=== PATIENT | male | born 1965 | race Caucasian/White ===

== ENCOUNTER 2016-10-04 20:21 | Emergency (ER) | payer OTHER ==
[~2016-10-04] VITALS: Ht 162.6 cm; Wt 77.3 kg
[~2016-10-04 20:21] MED LIST: BUPR150CR PO; CYMB30CA PO; GABA300C5 PO; MOBI15TA PO; TRAZ150T75 PO; VIAG25TA PO
[2016-10-04 20:22] VITALS: BP 166/106; PULSE 110; RESP 16; TEMP 98.1; O2SAT 98
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
[2016-10-04] MEDS ORDERED: TRAZ1TAB45 PO (21:03)
[2016-10-04] MEDS ORDERED: ONDANSETRON ODT 4 MG TAB PO ONE (21:15)
[2016-10-04] MEDS ORDERED: MORPHINE SULFATE 4 MG/ML INJ IM ONE (21:15)
[2016-10-04] MEDS ORDERED: SILVER SULFADIAZINE 1% CR 50 GM JAR TOPICAL ONE (21:15)
[2016-10-04] MEDS ORDERED: SILV1CRE20 TOPICAL (21:18)
[2016-10-04] MEDS ORDERED: NORC5TAB PO (21:18)
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
[2016-10-04 22:42] VITALS: RESP 16
[2016-10-04] MEDS ORDERED: ACETAMINOPHEN/HYDROcodone 325 MG/5 MG TAB PO ONE (22:45)
== END 2016-10-04 22:43 | disposition home or self-care (01) ==
LOC: NEPE 20:21
DX: T21.21XA Burn of second degree of chest wall, initial encounter (principal); T20.10XA Burn of first degree of head, face, and neck, unspecified site, initial encounter; X12.XXXA Contact with other hot fluids, initial encounter
CPT/HCPCS: 16000; 96372; 99284; J2270

== ENCOUNTER 2016-10-05 14:41 | Emergency (ER) | payer OTHER ==
[~2016-10-05] VITALS: Ht 162.6 cm; Wt 80.0 kg
[~2016-10-05 14:41] MED LIST changes: +NORC5TAB PO; +SILV1CRE20 TOPICAL; -TRAZ150T75 PO; +TRAZ1TAB45 PO
[2016-10-05 14:42] VITALS: BP 144/94; PULSE 104; RESP 15; TEMP 98.1; O2SAT 99
[2016-10-05] MEDS ORDERED: SILVER SULFADIAZINE 1% CR 50 GM JAR TOPICAL ONE (19:00)
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
== END 2016-10-05 19:45 | disposition home or self-care (01) ==
LOC: NEPD 14:41
DX: Z48.01 Encounter for change or removal of surgical wound dressing (principal); T22.29 Burn of second degree of multiple sites of shoulder and upper limb, except wrist and hand; T21.21XD Burn of second degree of chest wall, subsequent encounter
CPT/HCPCS: 16000

== ENCOUNTER 2018-01-25 21:19 | Inpatient (IN) ==
[2018-01-25] MEDS ORDERED: Morphine Sulfate Inj 8 MG/ML Vial IV.PUSH ONE ×2 (21:27→23:13)
[2018-01-25] MEDS ORDERED: Acetaminophen 500 MG Tablet PO ONE (21:36)
--- NOTE | 2018-01-25 21:36 | ED ---
HPI General Chief Complaint: Back Pain/Injury Stated Complaint: Back Pain/Poss Sepsis Time Seen by Provider: 01/25/18 21:27 Source: patient Mode of arrival: EMS Limitations: no limitations History of Present Illness HPI Narrative: Recent laminectomy lumbar complaining of back pain. Fever MD Complaint: Reports back pain Onset (ago): day(s) Duration: Reports constant Similar Symptoms Previously: No Location: Reports lumbar spine Severity: severe Quality: Reports dull Radiation: Reports none Relieving factors: immobilization Exacerbating factors: movement Associated symptoms: Reports fever; Denies a change in bowel habits, abdominal pain and parasthesias Related Data Home Medications Medication Instructions Recorded Confirmed baclofen 10 mg PO TID PRN 01/06/18 01/25/18 duloxetine [Cymbalta] 60 mg PO BID 01/06/18 01/25/18 gabapentin 300 mg PO TID 01/06/18 01/25/18 meloxicam 15 mg PO DAILY 01/06/18 01/25/18 trazodone 100 mg PO DAILY 01/06/18 01/25/18 bupropion HCl 300 mg PO QAM 01/25/18 01/25/18 Previous Rx's Medication Instructions Recorded hydrocodone-acetaminophen [[place]] 1 tab PO Q4H PRN #60 tab 01/17/18 Allergies Allergy/AdvReac Type Severity Reaction Status Date / Time No Known Allergies Allergy Verified 01/25/18 21:27 Review of Systems ROS: all other systems reviewed are negative Respiratory Denies cough Genitourinary Denies difficulty urinating Musculoskeletal Reports back pain PMFSH Medical History Medical History Anxiety (Acute) Arthritis (Acute) Back pain (Acute) Bone spur (Acute) Depression (Acute) Herniated disc (Acute) History of diverticulitis of colon (Acute) Joint pain (Acute) Neck pain (Acute) PTSD (post-traumatic stress disorder) (Acute) Spinal stenosis (Acute) Wears glasses (Acute) Social History Social History Substance History: No History of Abuse Second Hand Smoke Exposure: No Smoking Status: Former smoker Tobacco Type: Cigarettes How Often Do You Have a Drink Containing Alcohol: Never Recent Travel in [place] within the Last 8 Weeks: No Recent Out of Country Travel within the Last 8 Weeks: No Exam Narrative Exam Narrative: NONTOXIC Looks uncomfortable recumbent position left PERRL, EOMI NO JVD NON LABORED RESPIRATIONS Tachycardia/fever SOFT NON TENDER, no CVA tenderness PELVIS STABLE FROM EXTREMITIES Lumbar midline incision well-healing no surrounding erythema with Steri-Strips NO LOWER EXTREMITY EDEMA FACIAL SYMMETRY CLEAR SENTENCES Course Reevaluation(s) Reevaluation #1: deepika ramos neurosurgery paged, 2139 d/w cat ramos colleague, will consult no incontinence moves extremities 0100 d/w mayra ramos to admit / assume care hd stable with no signs of cord compression or acute surgical abdomen Updated at bedside Time: 21:33 Initial Documented Vital Signs Temperature 101.9 F H 01/25/18 21:28 Pulse Rate 101 H 01/25/18 21:28 Respiratory Rate 18 01/25/18 21:28 Blood Pressure 138/82 01/25/18 21:28 Pulse Oximetry 97 01/25/18 21:28 Last Documented Vital Signs Temperature 99.9 F H 01/25/18 23:34 Pulse Rate 88 01/25/18 23:34 Respiratory Rate 18 01/25/18 23:34 Blood Pressure 117/67 01/25/18 23:34 Pulse Oximetry 98 01/25/18 23:34 Medical Decision Making MDM Narrative Medical Screen Exam Complete: Yes Emergency Medical Condition: Yes Lab Data Lab results reviewed: Yes I reviewed the patient's lab results. Result diagrams: 01/25/18 21:38 01/25/18 21:38 Lab Results 01/25/18 01/25/18 01/25/18 Range/Units 21:38 21:38 21:38 WBC 7.6 (4.0-11.0) th/mm3 RBC 4.06 L (4.50-5.90) mil/mm3 Hgb 13.6 (13.0-17.0) gm/dL Hct 39.3 (39.0-51.0) % MCV 96.9 (80.0-100.0) fL MCH 33.6 (27.0-34.0) pg MCHC 34.7 (32.0-36.0) % RDW 13.1 (11.6-17.2) % Plt Count 274 (150-450) th/mm3 MPV 7.2 (7.0-11.0) fL Neut % (Auto) 77.6 H (16.0-70.0) % Lymph % (Auto) 11.9 (9.0-44.0) % [place] % (Auto) 9.3 H (0.0-8.0) % Eos % (Auto) 0.8 (0.0-4.0) % Baso % (Auto) 0.4 (0.0-2.0) % Neut # (Auto) 5.9 (1.8-7.7) th/mm3 Lymph # (Auto) 0.9 L (1.0-4.8) th/mm3 [place] # (Auto) 0.7 (0.0-0.9) th/mm3 Eos # (Auto) 0.1 (0.0-0.4) th/mm3 Baso # (Auto) 0.0 (0.0-0.2) th/mm3 WBC Differential . Differential Comment Auto diff final Sodium 138 (136-145) meq/L Potassium 4.3 (3.5-5.1) meq/L Chloride 105 (98-107) meq/L Carbon Dioxide 27.0 (21.0-32.0) meq/L Anion Gap 6 (5-15) meq/L BUN 20 H (7-18) mg/dL Creatinine 1.01 (0.60-1.30) mg/dL Estimated GFR 78 L (>89) mL/min Random Glucose 114 H (74-106) mg/dL Lactic Acid 1.1 (0.4-2.0) mmol/L Calcium 7.7 L (8.5-10.1) mg/dL Magnesium 2.0 (1.5-2.5) mg/dL Total Bilirubin 0.3 (0.2-1.0) mg/dL AST 62 H (15-37) U/L ALT 64 (12-78) U/L Alkaline Phosphatase 98 (45-117) U/L Total Protein 6.9 (6.4-8.2) g/dL Albumin 3.3 L (3.4-5.0) g/dL Urine Color (Yellw/Straw) Urine Clarity (Clear) Urine pH (5.0-8.5) Ur Specific [place] (1.002-1.035) Urine Protein (Neg-Trace) mg/dL Urine Glucose (UA) (Negative) mg/dL Urine Ketones (Negative) mg/dL Urine Occult Blood (Negative) Urine Nitrate (Negative) Urine Bilirubin (Negative) Urine Urobilinogen (Less than 2) mg/dL Ur Leukocyte Esterase (Negative) Urine WBC (0-5) /hpf Urine Mucus (Occasional) /lpf Micro UA Comment Ur Microscopic Review Urine Culture Comments 01/25/18 Range/Units 22:06 WBC (4.0-11.0) th/mm3 RBC (4.50-5.90) mil/mm3 Hgb (13.0-17.0) gm/dL Hct (39.0-51.0) % MCV (80.0-100.0) fL MCH (27.0-34.0) pg MCHC (32.0-36.0) % RDW (11.6-17.2) % Plt Count (150-450) th/mm3 MPV (7.0-11.0) fL Neut % (Auto) (16.0-70.0) % Lymph % (Auto) (9.0-44.0) % [place] % (Auto) (0.0-8.0) % Eos % (Auto) (0.0-4.0) % Baso % (Auto) (0.0-2.0) % Neut # (Auto) (1.8-7.7) th/mm3 Lymph # (Auto) (1.0-4.8) th/mm3 [place] # (Auto) (0.0-0.9) th/mm3 Eos # (Auto) (0.0-0.4) th/mm3 Baso # (Auto) (0.0-0.2) th/mm3 WBC Differential Differential Comment Sodium (136-145) meq/L Potassium (3.5-5.1) meq/L Chloride (98-107) meq/L Carbon Dioxide (21.0-32.0) meq/L Anion Gap (5-15) meq/L BUN (7-18) mg/dL Creatinine (0.60-1.30) mg/dL Estimated GFR (>89) mL/min Random Glucose (74-106) mg/dL Lactic Acid (0.4-2.0) mmol/L Calcium (8.5-10.1) mg/dL Magnesium (1.5-2.5) mg/dL Total Bilirubin (0.2-1.0) mg/dL AST (15-37) U/L ALT (12-78) U/L Alkaline Phosphatase (45-117) U/L Total Protein (6.4-8.2) g/dL Albumin (3.4-5.0) g/dL Urine Color Yellow (Yellw/Straw) Urine Clarity Clear (Clear) Urine pH 7.0 (5.0-8.5) Ur Specific [place] 1.018 (1.002-1.035) Urine Protein Negative (Neg-Trace) mg/dL Urine Glucose (UA) Negative (Negative) mg/dL Urine Ketones Negative (Negative) mg/dL Urine Occult Blood Negative (Negative) Urine Nitrate Negative (Negative) Urine Bilirubin Negative (Negative) Urine Urobilinogen 0.2 (Less than 2) mg/dL Ur Leukocyte Esterase Negative (Negative) Urine WBC Less than 1 (0-5) /hpf Urine Mucus Few H (Occasional) /lpf Micro UA Comment Culture not ind Ur Microscopic Review Not Reportable Urine Culture Comments Culture not ind Imaging Data Radiologist's impression: Chest X-Ray 01/25/18 21:28 CONCLUSION: No acute cardiopulmonary disease. Lumbar Spine CT 01/25/18 21:31 CONCLUSION: 1. Status post left laminectomy at the L3-L4 level. There is a small focus of air in the laminectomy site. Focal fluid collection is not clearly seen. 2. Moderate narrowing of the sac the L4-L5 level secondary to diffuse disc bulge and facet and ligamentum flavum hypertrophy. 3. Transitional changes with sacralization of L5. Thoracic Spine CT 01/25/18 21:31 CONCLUSION: Negative thoracic spine CT examination. ECG Data Attestation: I personally reviewed and interpreted this ECG as follows: (Sinus, no STEMI) Discharge Plan Discharge Disposition Patient Disposition: ED Admit(ED Internal Use Only) Discharge Condition Condition: Stable Discharge Details Diagnosis: Acute exacerbation of chronic low back pain, Fever Physicians Team ED Provider: Gordo Medina Primary Care Provider: Brina Clarke Rxs /Orders / Referrals /Forms Prescriptions: No Action meloxicam 15 mg Tablet 15 mg PO DAILY RF: 0 trazodone 100 mg Tablet 100 mg PO DAILY RF: 0 baclofen 10 mg Tablet 10 mg PO TID PRN (Reason: Muscle Spasm) RF: 0 gabapentin 300 mg Capsule 300 mg PO TID RF: 0 duloxetine [Cymbalta] 60 mg Capsule,Delayed Release(Dr/Ec) 60 mg PO BID RF: 0 hydrocodone-acetaminophen [[place]] 10-325 mg Tablet 1 tab PO Q4H PRN (Reason: Pain) Qty: 60 RF: 0 bupropion HCl 300 mg Tablet Extended Release 24 Hr 300 mg PO QAM RF: 0 Discharge Interventions Interventions: Vital Signs Last Done: 01/25/18 23:34 Status ED Status: With Doctor
--- NOTE | 2018-01-25 21:53 | XR ---
EXAM DATE: 01/25/2018 9:48 PM EST AGE/SEX: 52 years / Male INDICATIONS: Fever today, one week after back surgery. Lower back pain today. CLINICAL DATA: This is the patient's initial encounter. Patient reports that signs and symptoms have been present for 1 day and indicates a pain score of 10/10. MEDICAL/SURGICAL HISTORY: None. . Lumbar laminectomy. COMPARISON: [facility] [place], CHEST 2V PA&LAT, 01/06/2018. . FINDINGS: The lungs are clear without infiltrate, nodule, or mass. There is no appreciable pleural effusion fo r technique. Heart and mediastinum are unremarkable. CONCLUSION: No acute cardiopulmonary disease. Electronically signed by: Belle Hui MD Board Certified Radiologist 01/25/2018 9:52 PM EST
[2018-01-25 22:00] LABS: Baso % (Auto) 0.4 % (0.0-2.0); Eos # (Auto) 0.1 th/mm3 (0.0-0.4); Eos % (Auto) 0.8 % (0.0-4.0); Hematocrit 39.3 % (39.0-51.0); Hemoglobin 13.6 gm/dL (13.0-17.0); Lymph # (Auto) 0.9 th/mm3 (1.0-4.8); Lymph % (Auto) 11.9 % (9.0-44.0); Mean Corpuscular HGB Conc 34.7 % (32.0-36.0); Mean Corpuscular Hemoglobin 33.6 pg (27.0-34.0); Mean Corpuscular Volume 96.9 fL (80.0-100.0); Mean Platelet Volume 7.2 fL (7.0-11.0); Mono # (Auto) 0.7 th/mm3 (0.0-0.9); Mono % (Auto) 9.3 % (0.0-8.0); Neut # (Auto) 5.9 th/mm3 (1.8-7.7); Neut % (Auto) 77.6 % (16.0-70.0); Platelet Count 274 th/mm3 (150-450); Red Blood Count 4.06 mil/mm3 (4.50-5.90); Red Cell Distribution Width 13.1 % (11.6-17.2); White Blood Count 7.6 th/mm3 (4.0-11.0)
[2018-01-25 22:23] LABS: Bilirubin,Urine Negative (Negative); Clarity,Urine Clear (Clear); Color,Urine Yellow (Yellw/Straw); Glucose,Urine (UA) Negative (Negative); Leukocyte Esterase,Urine Negative (Negative); Mucus,Urine Few /lpf (Occasional); Nitrite,Urine Negative (Negative); Specific Gravity,Urine 1.018 (1.002-1.035); Urobilinogen,Urine 0.2 mg/dL (Less than 2)
[2018-01-25 22:34] LABS: Alkaline Phosphatase 98 U/L (45-117); Total Protein 6.9 g/dL (6.4-8.2)
[2018-01-25 22:37] LABS: Alanine Aminotransferase 64 U/L (12-78); Albumin 3.3 g/dL (3.4-5.0); Anion Gap 6 meq/L (5-15); Aspartate Aminotransferase 62 U/L (15-37); Blood Urea Nitrogen 20 mg/dL (7-18); Calcium 7.7 mg/dL (8.5-10.1); Chloride 105 meq/L (98-107); Glomerular Filtration Rate 78 mL/min (>89); Glucose,Random 114 mg/dL (74-106); Potassium 4.3 meq/L (3.5-5.1); Sodium 138 meq/L (136-145)
--- NOTE | 2018-01-26 00:10 | CT ---
EXAM DATE: 01/26/2018 12:05 AM EST AGE/SEX: 52 years / Male INDICATIONS: Low back pain with fever Post lumbar laminectomy 7 days ago. CLINICAL DATA: This is the patient's initial encounter. Patient reports that signs and symptoms have been present for 1 week and indicates a pain score of 8/10. MEDICAL/SURGICAL HISTORY: Diverticulitis. Colon resection. Fusion, cervical. Discectomy, lumbar. RADIATION DOSE: 35.41 CTDI (mGy) ; Combined studies COMPARISON: No prior exams available for comparison. TECHNIQUE: Contiguous axial images were acquired using a multirow detector CT scanner after intraven ous administration of 100 ml Omnipaque 350 (iohexol) nonionic water-soluble contrast as a cumulative dose for multiple exams. Multiplanar reconstruction in the sagittal and coronal planes was perform ed. Using automated exposure control and adjustment of the mA and/or kV according to patient size, r adiation dose was kept as low as reasonably achievable to obtain optimal diagnostic quality images. DICOM format image data is available electronically for review and comparison. FINDINGS: Vertebrae: Normal vertebral body height. There are mild marginal osteophytes in the mid to lower tho racic spine. Alignment: Normal. No subluxation. Post Contrast: No abnormal areas of enhancement are seen in the cord, dural or paraspinal regions. T1 - T2: Normal. T2 - T3: The thecal sac has a normal diameter. No evidence of disc bulge or protrusion. T3 - T4: The thecal sac has a normal diameter. No evidence of disc bulge or protrusion. T4 - T5: The thecal sac has a normal diameter. No evidence of disc bulge or protrusion. T5 - T6: The thecal sac has a normal diameter. No evidence of disc bulge or protrusion. T6 - T7: The thecal sac has a normal diameter. No evidence of disc bulge or protrusion. T7 - T8: The thecal sac has a normal diameter. No evidence of disc bulge or protrusion. T8 - T9: The thecal sac has a normal diameter. No evidence of disc bulge or protrusion. T9 - T10: The thecal sac has a normal diameter. No evidence of disc bulge or protrusion. T10 - T11: The thecal sac has a normal diameter. No evidence of disc bulge or protrusion. T11 - T12: The thecal sac has a normal diameter. No evidence of disc bulge or protrusion. T12 - L1: The thecal sac has a normal diameter. No evidence of disc bulge or protrusion. CONCLUSION: Negative thoracic spine CT examination. Electronically signed by: Dex Blanc MD Board Certified Radiologist 01/26/2018 12:09 AM EST
--- NOTE | 2018-01-26 00:20 | CT ---
EXAM DATE: 01/26/2018 12:02 AM EST AGE/SEX: 52 years / Male INDICATIONS: Low back pain with fever. Post op lumbar laminectomy 7 days ago. CLINICAL DATA: This is the patient's initial encounter. Patient reports that signs and symptoms have been present for 1 week and indicates a pain score of 8/10. MEDICAL/SURGICAL HISTORY: Diverticulitis. Colon resection. Fusion, cervical. Discectomy, lumbar. RADIATION DOSE: 35.41 CTDI (mGy) ; Combined studies COMPARISON: No prior exams available for comparison. TECHNIQUE: Contiguous axial images were acquired with a multirow detector CT scanner after intraveno us administration of 100 ml Omnipaque 350 (iohexol) nonionic water-soluble contrast as a cumulative dose for multiple exams. Multiplanar reconstructions in the sagittal and coronal plane were also per formed. Using automated exposure control and adjustment of the mA and/or kV according to patient size , radiation dose was kept as low as reasonably achievable to obtain optimal diagnostic quality images . DICOM format image data is available electronically for review and comparison. FINDINGS: There are 12 rib-bearing thoracic elements. There are 4 nonrib-bearing lumbar elements. Th ere is some sacralization of L5. This a normal variant. The patient is status post left laminectomy a t the L3 level. Vertebrae: Normal vertebral body height. Alignment: Normal. No subluxation. Post Contrast: No abnormal areas of enhancement are seen in the cord, dural or paraspinal regions. There appears to be a bowel anastomosis suture in the sigmoid colon region. T12-L1: The thecal sac has a normal diameter. No evidence of disc bulge or protrusion. The neural foramina are patent bilaterally. L1-L2: The thecal sac has a normal diameter. No evidence of disc bulge or protrusion. The neural f oramina are patent bilaterally. L2-L3: The thecal sac has a normal diameter. No evidence of disc bulge or protrusion. The neural f oramina are patent bilaterally. L3-L4: The patient is status post left laminectomy at this level. There is mild diffuse disc bulge. There is small 0.6 cm focus of air seen at the laminectomy site. A focal fluid collection is not seen . The does. Some edema in the superficial subcutaneous fat. L4-L5: The disc demonstrates decreased height. There is a vacuum phenomenon. There is moderate diffu se disc bulge. There is mild facet and ligament flavum hypertrophy resulting in moderate narrowing of the thecal sac. The neural foramina are grossly intact. L5-S1: Again noted is the rudimentary disc secondary to the transitional changes. A significant impr ession on the thecal sac is not seen. The neural foramina are grossly patent. CONCLUSION: 1. Status post left laminectomy at the L3-L4 level. There is a small focus of air in the laminectomy site. Focal fluid collection is not clearly seen. 2. Moderate narrowing of the sac the L4-L5 level secondary to diffuse disc bulge and facet and ligam entum flavum hypertrophy. 3. Transitional changes with sacralization of L5. Electronically signed by: Dex Blanc MD Board Certified Radiologist 01/26/2018 12:19 AM EST
[2018-01-26] MEDS ORDERED: Morphine Inj 4 MG/ML Vial IV.PUSH PRN (01:06)
[2018-01-26] MEDS ORDERED: Bisacodyl 10 MG Supp RECTAL PRN (01:07)
[2018-01-26] MEDS ORDERED: Vancomycin Consult Pharmacy OTHER PRN ×2 (01:31→14:15)
[2018-01-26] MEDS: traZODone 100 MG Tablet PO SCH ×2 (01:51→21:37)
[2018-01-26] MEDS: diazePAM 5 MG Tablet PO PRN (01:53)
[2018-01-26] MEDS: buPROPion 150 MG 12 HR Tablet PO SCH ×3 (01:59→21:36)
[2018-01-26] MEDS ORDERED: Vancomycin Inj 1,500 MG in Sodium Chlor 0.9% Inj 500 ML IV.SIG ONE (02:00)
--- NOTE | 2018-01-26 02:21 | P.HPIM ---
History of Present Illness Primary Care Physician: Brina Clarke History of Present Illness: This is a 52-year-old male with a PMH of Chronic Back Pain, Anxiety, Depression and PTSD who presented to the ER with complaints of severe back pain starting earlier today. S/p Lumbar L4-L5 Laminectomy by Dr. Mercado on 01/17/18 for spinal stenosis, states he was doing well post-op until earlier this afternoon when he developed acute onset of severe back pain, states unable to walk due to symptoms. Pain is located in lumbar region, severe, 10/10, non-radiating, worse w/ movement. Denies injury or trauma. On arrival, BP 138/82, HR 101, O2 sat 97% on RA, Temp 101.9 CBC unremarkable. Chemistry unremarkable except for BUN 20, GFR 78. UA negative. CT L-spine status post left laminectomy, small focus of air and laminectomy site, focal fluid collection not clearly seen, moderate narrowing of sac at L4-L5 secondary to diffuse disc bulge. CT T-spine negative. CXR with no acute findings. Dr. 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 S/p Jas in ER. - Diagnosis (1) SIRS (systemic inflammatory response syndrome) (2) Intractable back pain (3) H/O laminectomy Inpatient Certification: I certify that the inpatient services were ordered in accordance with Medicare regulations governing the order. This includes certification that hospital inpatient services are reasonable and necessary and in the case of services not specified as inpatient-only under 42 CFR 419.22(n), that they are appropriately provided as inpatient services in accordance to with the 2-midnight benchmark under 43 CFR 412.3(e) Estimated Total Length of Stay (Days): 2 Plans for Post Hospital Care: Not yet determined Review of Systems PAST FAMILY HISTORY: Reviewed. No h/o DM or CAD All other systems reviewed negative except as stated in HPI PMFSH - History History Provided By: Patient - Medical History Medical History: Medical History (Last Reviewed 01/25/18 @ 21:35 by Gordo Medina DO) Anxiety Arthritis Back pain Bone spur Depression Herniated disc History of diverticulitis of colon Joint pain Neck pain PTSD (post-traumatic stress disorder) Spinal stenosis Wears glasses - Surgical History Surgical History: Surgical History (Last Reviewed 01/17/18 @ 05:45 by Rhoda Wilkinson) History of biopsy History of colon resection History of hand surgery History of vasectomy Hx of LASIK Hx of fusion of cervical spine - Tobacco History Second Hand Smoke Exposure: No Tobacco Use In Past 30 Days: No Smoking Status: Former smoker Tobacco Type: Cigarettes - Alcohol History How Often Do You Have a Drink Containing Alcohol: Never - Substance Use History Substance History: No History of Abuse - Travel History Recent Travel in the [place] Within the Last 8 Weeks: No Recent Travel Out of the Country Within the Last 8 Weeks: No - Immunization History Tetanus Immunization: <5 Years Medications and Allergies Active Medications: Active Medications Acetaminophen (Tylenol) 650 mg PO Q4H PRN PRN Reason: Temp > 100.4 Hydrocodone Bitart/Acetaminophen ([place] 5/325) 1 tab PO Q4H PRN PRN Reason: PAIN 3-5 Al Hydroxide/Mg Hydroxide (Milk Of Magnesia Liq) 30 ml PO Q12H PRN PRN Reason: Mild Constipation Baclofen (Lioresal) 10 mg PO TID PRN PRN Reason: Muscle Spasm Bisacodyl (Dulcolax Supp) 10 mg RECTAL DAILY PRN PRN Reason: SEVERE CONSITIPATION Bupropion HCl (Wellbutrin Sr) 150 mg PO BID [facility] Last Admin: 01/26/18 01:59 Dose: Not Given Diazepam (Valium) 5 mg PO Q8H PRN PRN Reason: MUSCLE SPASM Last Admin: 01/26/18 01:53 Dose: 5 mg Duloxetine HCl (Cymbalta) 60 mg PO BID STEFFANY Gabapentin (Neurontin) 300 mg PO TID STEFFANY Hydromorphone HCl (Dilaudid Pf Inj) 1 mg IV.PUSH Q4H PRN PRN Reason: PAIN 6-10 Sodium Chloride (Ns Inj) 1,000 mls @ 100 mls/hr IV.CONT .Q10H STEFFANY Ceftriaxone Sodium 2,000 mg/ (Sodium Chloride) 100 mls @ 200 mls/hr IV.SIG Q12H STEFFANY Vancomycin HCl 1,500 mg/ (Sodium Chloride) 530 mls @ 250 mls/hr IV.SIG ONCE ONE Stop: 01/26/18 04:07 Lactulose (Lactulose Liq) 30 ml PO DAILY PRN PRN Reason: SEVERE CONSITIPATION Ondansetron HCl (Zofran Inj) 4 mg IV.PUSH Q6H PRN PRN Reason: NAUSEA OR VOMITING Pharmacy Profile Note (Vancomycin Consult Pharmacy) 1 each OTHER UNSCH PRN PRN Reason: Pharmacy to dose Senna/Docusate Sodium (Mandie-Colace) 1 tab PO BID [facility] Sennosides (Senokot) 17.2 mg PO Q12H PRN PRN Reason: Moderate Constipation Sodium Chloride (Ns Flush) 2 ml IV.FLUSH PRN PRN PRN Reason: FLUSH AFTER USING IV ACCESS Sodium Chloride (Ns Flush) 2 ml IV.FLUSH BID [facility] Trazodone HCl (Desyrel) 100 mg PO HS [facility] Last Admin: 01/26/18 01:51 Dose: 100 mg Allergies Allergy/AdvReac Type Severity Reaction Status Date / Time No Known Allergies Allergy Verified 01/25/18 21:27 Home Medications Medication Instructions Recorded Confirmed Type baclofen 10 mg PO TID PRN 01/06/18 01/25/18 History duloxetine [Cymbalta] 60 mg PO BID 01/06/18 01/25/18 History gabapentin 300 mg PO TID 01/06/18 01/25/18 History meloxicam 15 mg PO DAILY 01/06/18 01/25/18 History trazodone 100 mg PO DAILY 01/06/18 01/25/18 History bupropion HCl 300 mg PO QAM 01/25/18 01/25/18 History Exam Vital signs: Vital Signs 01/25/18 21:28 01/25/18 21:33 01/25/18 22:16 Temperature 101.9 F H Pulse Rate 101 H 104 H 83 Respiratory Rate 18 18 Blood Pressure 138/82 153/74 H Pulse Oximetry 97 98 98 01/25/18 23:34 01/26/18 01:38 Temperature 99.9 F H 99.1 F Pulse Rate 88 81 Respiratory Rate 18 18 Blood Pressure 117/67 140/82 Pulse Oximetry 98 98 Intake & Output 01/25/18 01/25/18 01/26/18 06:59 18:59 06:59 Intake Total 100 / 100 Output Total 300 / 300 Balance -200 / -200 Weight 81.647 kg Intake: IV 100 / 100 Rocephin Inj 2,000 MG In NS Inj 100 / 100 100 ML @ 200 mls/hr IV.SIG ONCE ONE Rx#:[id number] Output: Urine 300 / 300 Narrative: PE: GENERAL: Very pleasant middle-aged man in no acute distress, but appears uncomfortable w/ movement. at bedside. SKIN: Focused skin assessment warm and dry. HEENT: PERRLA, EOMI. No scleral icterus or conjunctival pallor. No lid lag or facial droop. CARDIOVASCULAR: Regular rate and rhythm. No obvious murmurs to auscultation. No chest tenderness to palpation. RESPIRATORY: No obvious rhonchi or wheezing. Clear to auscultation. Breath sounds equal bilaterally. GASTROINTESTINAL: Abdomen soft, non-tender, nondistended. BS normal. MUSCULOSKELETAL: Extremities without clubbing, cyanosis, or edema. No obvious deformities. Lumbar incision intact, no erythema/edema, Steri-Strips in place. NEUROLOGICAL: Awake, alert and oriented x4. No focal neurologic deficits. Moving both upper and lower extremities spontaneously. PSYCHIATRIC: Appropriate mood and affect. Insight and judgment normal. Results - Labs CBC & Chem 7: 01/25/18 21:38 01/25/18 21:38 Labs: Short CBC 01/25/18 Range/Units 21:38 WBC 7.6 (4.0-11.0) th/mm3 Hgb 13.6 (13.0-17.0) gm/dL Hct 39.3 (39.0-51.0) % Plt Count 274 (150-450) th/mm3 BMP 01/25/18 21:38 Sodium 138 Potassium 4.3 Chloride 105 Carbon Dioxide 27.0 BUN 20 H Creatinine 1.01 Calcium 7.7 L Liver Function 01/25/18 Range/Units 21:38 Total Bilirubin 0.3 (0.2-1.0) mg/dL AST 62 H (15-37) U/L ALT 64 (12-78) U/L Alkaline Phosphatase 98 (45-117) U/L Albumin 3.3 L (3.4-5.0) g/dL Urine 01/25/18 Range/Units 22:06 Urine Color Yellow (Yellw/Straw) Urine Clarity Clear (Clear) Urine pH 7.0 (5.0-8.5) Ur Specific [place] 1.018 (1.002-1.035) Urine Protein Negative (Neg-Trace) mg/dL Urine Glucose (UA) Negative (Negative) mg/dL - Imaging Impressions Chest X-Ray 01/25/18 21:28 CONCLUSION: No acute cardiopulmonary disease. Lumbar Spine CT 01/25/18 21:31 CONCLUSION: 1. Status post left laminectomy at the L3-L4 level. There is a small focus of air in the laminectomy site. Focal fluid collection is not clearly seen. 2. Moderate narrowing of the sac the L4-L5 level secondary to diffuse disc bulge and facet and ligamentum flavum hypertrophy. 3. Transitional changes with sacralization of L5. Thoracic Spine CT 01/25/18 21:31 CONCLUSION: Negative thoracic spine CT examination. Caprini VTE Risk Assessment Caprini VTE Risk Assessment: No/Low Risk (score <= 1) Caprini Risk Assessment Model: Point Value = 1 Point Value = 2 Point Value = 3 Point Value = 5 Age 41-60 Minor surgery BMI > 25 kg/m2 Swollen legs Varicose veins or History of unexplained or recurrent spontaneous Oral contraceptives or hormone replacement Sepsis (< 1 month) Serious lung disease, including pneumonia (< 1 month) Abnormal pulmonary function Acute myocardial infarction Congestive heart failure (< 1 month) History of inflammatory bowel disease Medical patient at bed rest Age 61-74 Arthroscopic surgery Major open surgery (> 45 min) Laparoscopic surgery (> 45 min) Malignancy Confined to bed (> 72 hours) Immobilizing plaster cast Central venous access Age >= 75 History of VTE Family history of VTE Factor V Leiden Prothrombin [id number] Lupus anticoagulant Anticardiolipin antibodies Elevated serum homocysteine Heparin-induced thrombocytopenia Other congenital or acquired thrombophilia Stroke (< 1 month) Elective arthroplasty Hip, pelvis, or leg fracture Acute spinal cord injury (< 1 month) Prophylaxis Regimen: Total Risk Factor Score Risk Level Prophylaxis Regimen 0-1 Low Early ambulation 2 Moderate Order ONE of the following: *Sequential Compression Device (SCD) *Heparin 5000 units SQ BID 3-4 Higher Order ONE of the following medications: *Heparin 5000 units SQ TID *Enoxaparin/Lovenox 40 mg SQ daily (WT < 150 kg, CrCl > 30 mL/min) *Enoxaparin/Lovenox 30 mg SQ daily (WT < 150 kg, CrCl > 10-29 mL/min) *Enoxaparin/Lovenox 30 mg SQ BID (WT < 150 kg, CrCl > 30 mL/min) AND/OR *Sequential Compression Device (SCD) 5 or more Highest Order ONE of the following medications: *Heparin 5000 units SQ TID (Preferred with Epidurals) *Enoxaparin/Lovenox 40 mg SQ daily (WT < 150 kg, CrCl > 30 mL/min) *Enoxaparin/Lovenox 30 mg SQ daily (WT < 150 kg, CrCl > 10-29 mL/min) *Enoxaparin/Lovenox 30 mg SQ BID (WT < 150 kg, CrCl > 30 mL/min) AND *Sequential Compression Device (SCD) Assessment and Plan - Assessment (1) SIRS (systemic inflammatory response syndrome) Code(s): R65.10 - Systemic inflammatory response syndrome (SIRS) of non- infectious origin without acute organ dysfunction Status: Acute (2) Intractable back pain Code(s): M54.9 - Dorsalgia, unspecified Status: Acute (3) H/O laminectomy Code(s): Z98.890 - Other specified postprocedural states Status: Acute - Plan A/P: 1. SIRS: Temp 101.9, HR 101, Source-unclear, possibly early spinal infection, S/p Rocephin IV in ER, will continue w/ IV Abx, follow up cultures. 2. Intractable Back Pain: s/p Morphine 5mg IV x2 in ER w/ minimal improvement , unable to ambulate/move without significant pain, switch to Dilaudid IV, Valium prn for muscle spasm. Consult PT. 3. S/p Laminectomy: L4-L5 Laminectomy by Dr. Mercado 01/17/18, doing well post- op until today when developed acute onset severe back pain and fever, CT L- Spine w/ post op laminectomy, small focus of air, fluid collection not clearly seen, concern for possible early/developing abscess in light of symptoms and fever. Continue w/ IV Abx. Dr. Gipson consulted, no emergent intervention, will eval in am. 4. DVT Prophylaxis: SCD/Teds 5. Social work for d/c planning as needed. 6. Case discussed w/ ER physician at length, labs/records/imaging reviewed by me.
[2018-01-26] MEDS: Sod Chloride 0.9% Inj 1,000 ML IV.CONT SCH ×3 (02:45→22:14)
[2018-01-26] MEDS: HYDROmorphone PF Inj 2 MG/ML Vial IV.PUSH PRN ×4 (03:46→21:38)
[2018-01-26] MEDS ORDERED: traZODone 100 MG Tablet PO SCH (09:00)
[2018-01-26 09:50] LABS: Baso % (Auto) 0.2 % (0.0-2.0); Eos % (Auto) 0.3 % (0.0-4.0); Hematocrit 40.3 % (39.0-51.0); Hemoglobin 14.2 gm/dL (13.0-17.0); Lymph # (Auto) 0.7 th/mm3 (1.0-4.8); Lymph % (Auto) 9.9 % (9.0-44.0); Mean Corpuscular HGB Conc 35.2 % (32.0-36.0); Mean Corpuscular Volume 96.4 fL (80.0-100.0); Mean Platelet Volume 6.8 fL (7.0-11.0); Mono # (Auto) 0.8 th/mm3 (0.0-0.9); Mono % (Auto) 11.2 % (0.0-8.0); Neut # (Auto) 5.5 th/mm3 (1.8-7.7); Neut % (Auto) 78.4 % (16.0-70.0); Platelet Count 233 th/mm3 (150-450); Red Blood Count 4.18 mil/mm3 (4.50-5.90); Red Cell Distribution Width 12.7 % (11.6-17.2)
[2018-01-26 09:55] LABS: Alanine Aminotransferase 68 U/L (12-78); Albumin 3.5 g/dL (3.4-5.0); Anion Gap 6 meq/L (5-15); Aspartate Aminotransferase 44 U/L (15-37); Blood Urea Nitrogen 10 mg/dL (7-18); Calcium 8.2 mg/dL (8.5-10.1); Carbon Dioxide 24.9 meq/L (21.0-32.0); Chloride 102 meq/L (98-107); Glomerular Filtration Rate 87 mL/min (>89); Glucose,Random 100 mg/dL (74-106); Potassium 3.7 meq/L (3.5-5.1); Sodium 133 meq/L (136-145)
[2018-01-26 09:58] LABS: Alkaline Phosphatase 94 U/L (45-117); Total Protein 7.2 g/dL (6.4-8.2)
--- NOTE | 2018-01-26 10:32 | P.PNIM ---
Subjective Interval history: Patient seen and examined at the bedside overnight patient with fever episode active lumbar pain present and patient denied numbness/tingling down legs or new urinary changes including retention MRI back PENDING Physical Exam Vital signs: Last Vital Signs Temp 98.3 F 01/26/18 07:26 Pulse 96 H 01/26/18 07:26 Resp 20 01/26/18 07:26 BP 144/86 H 01/26/18 07:26 Pulse Ox 93 L 01/26/18 07:26 Intake & Output 01/24/18 01/25/18 01/26/18 01/27/18 06:59 06:59 06:59 06:59 Intake Total 630 / 630 Output Total 300 / 300 Balance 330 / 330 Weight 81.647 kg general: moderate distress heent: eomi cvs: tachycardia resp: cta bilaterally gi: soft, non tender, non distended, no guarding or rebound ortho: lumbar paraspinal tenderness, steristrips present and surgical site appears C/D/I without fluctulance neuro: sensation intact fully UE/Le bilaterally. ext: no edema or calf tenderness Results Labs CBC & Chem 7: 01/26/18 09:04 01/26/18 09:04 Imaging Imaging: Impressions Chest X-Ray 01/25/18 21:28 CONCLUSION: No acute cardiopulmonary disease. Lumbar Spine CT 01/25/18 21:31 CONCLUSION: 1. Status post left laminectomy at the L3-L4 level. There is a small focus of air in the laminectomy site. Focal fluid collection is not clearly seen. 2. Moderate narrowing of the sac the L4-L5 level secondary to diffuse disc bulge and facet and ligamentum flavum hypertrophy. 3. Transitional changes with sacralization of L5. Thoracic Spine CT 01/25/18 21:31 CONCLUSION: Negative thoracic spine CT examination. Assessment and Plan (1) SIRS (systemic inflammatory response syndrome): Code(s): R65.10 - Systemic inflammatory response syndrome (SIRS) of non-infectious origin without acute organ dysfunction Status: Acute (2) Intractable back pain: Code(s): M54.9 - Dorsalgia, unspecified Status: Acute (3) H/O laminectomy: Code(s): Z98.890 - Other specified postprocedural states Status: Acute Plan Patient is a 52 year old male with recent lamenectomy presenting to ED for acute lumbar backpain found to have tachycardia and fever ( Tmax >100.4) admitted for concerns regarding possible infection Orthopedics: spinal stenosis s/p laminectomy - s/p OR on 01/28 - NeuroSx consulted and recommendations appreciated - MRI spine - PENDING - continue gabapentin 300mg tid, baclofen Infectious disease: Fever - exact source of fever unclear presently. Lumbar region appears c/d/i and will see if MRI identifies a collection. - viral swab - PENDING - no urinary complaints and CXR unremarkable. - no rash concerning for cellulitis - continue emperic abx for now - add vancomycin for MRSA coverage - BCx - NGTD - infectious disease input - CRP elevated > 5 code: fc dvt ppx dispo: med/surg plan reviewed briefly with patient at bedside. waiting for MRI Progress Note: Quality VTE Deep Vein Thrombosis/Pulmonary Embolism Present on Admission: No
[2018-01-26] MEDS: Duloxetine 60 MG DR Capsule PO SCH ×2 (11:01→21:36)
[2018-01-26] MEDS: Gabapentin 300 MG Capsule PO SCH ×3 (11:02→17:06)
[2018-01-26] MEDS: Senna/Docusate Sodium 8.6/50 MG Tablet PO SCH ×2 (11:02→21:36)
[2018-01-26] MEDS: Acetaminophen 325 MG Tablet PO PRN ×2 (11:22→21:37)
--- NOTE | 2018-01-26 11:58 | ECG ---
Date Performed: 01/25/2018 Time Performed: 21:57:38 PTAGE: 52 years EKG: Ectopic Atrial Pacer POSSIBLE LEFT ATRIAL ENLARGEMENT BORDERLINE LEFT AXIS DEVIATION POSSIB LE LEFT VENTRICULAR HYPERTROPHY NONSPECIFIC T-WAVE ABNORMALITY ABNORMAL ECG PREVIOUS TRACING : 01/06/2018 11.39 Compared to previous tracing, ectopic atrial pacemaker is n ow present and Nonspecific T-wave changes are now noted. DOCTOR: Jimy Rushing Interpretating Date/Time 01/26/2018 11:56:54
--- NOTE | 2018-01-26 14:08 | MB ---
cc: Jesse Gipson MD DATE: 01/26/2018 AGE: [age] years old. TIME: 10:30 a.m. Report of an initial comprehensive inpatient observation neurosurgical consultation. The patient was interviewed, examined, and documentation, laboratory evaluation, and imaging were reviewed. CHIEF COMPLAINT: Severe low back pain. HISTORY OF PRESENT ILLNESS: This is a 52-year-old male who apparently developed the acute onset of severe back pain yesterday to the point that he was unable to ambulate. He sought medical attention in the emergency department here at [facility] and was admitted. This patient is status post L4-L5 laminectomy for spinal stenosis by Dr. Mercado on 01/17/2018. He states he was doing well postoperatively until he developed this severe pain. He also was admitted with a fever. CT scan of the lumbosacral spine revealed postoperative changes with a suggestion of fluid collection within the operative spite with spondylitic changes at multiple levels. Interestingly enough, his white blood cell count and his CBC were in the normal range. His urinalysis appeared unremarkable. PAST MEDICAL HISTORY: It should be noted that the pain does not radiate into his lower extremities. He denies any weakness or numbness in his lower extremities, and there is no sign of bowel or bladder dysfunction. PAST MEDICAL HISTORY: Remarkable for history of chronic back pain, anxiety, depression, and posttraumatic stress disorder. PAST SURGICAL HISTORY: Remarkable for multiple orthopedic operations in his left hand and wrist due to a crush injury. He has also had a colonoscopy and a breast biopsy. He has also had a fusion of his cervical spine and a history of LASIK surgery. He also has had a vasectomy in the past. HOME MEDICATIONS: Trazodone, meloxicam, Letart, gabapentin, Cymbalta, bupropion, and baclofen. ALLERGIES: HE HAS NO KNOWN DRUG ALLERGIES. SOCIAL HISTORY: Retired. He has no recent history of cigarette or cigar smoking. He denies a history of illicit drug use or ethanol abuse. FAMILY HISTORY: Noncontributory. REVIEW OF SYSTEMS: Noncontributory, and I refer to the previous medical records in his electronic medical record. He denies any weight change. He admits to some fever and some chills. He denies any headaches. He denies any change in his vision or hearing or thinking or memory or speech or swallowing or chest pain or shortness of breath or difficulty swallowing or change in bowel or bladder dysfunction or characteristics of his urine or stool. He denies any rash, itching, or easy bruising. He denies any recent difficulty ambulating. He has a history of anxiety and depression and posttraumatic stress disorder. PHYSICAL EXAMINATION: VITAL SIGNS: His maximum temperature was 101.1. Pulse is 96, blood pressure is 144/86, respiratory rate is 20, SpO2 is 93% on room air. MENTAL STATUS: Testing finds him to be awake and alert. He is oriented x3. Cognitive function is grossly intact. His speech is fluent. Cranial nerve testing 2-12 are grossly intact. NEUROLOGIC: Motor examination found bulk and tone to be within normal limits. Power testing was 5+/5+ throughout. Sensory examination revealed no decrease to light touch or position sense throughout. Deep tendon reflexes were 3+ and symmetric without pathological reflexes noted. Cerebellar testing found no dysmetria. Fine coordination was grossly intact. There was no gross truncal nor appendicular ataxia noted. Gait, Romberg, and tandem were not tested due to the patient's discomfort and pain. His head was normocephalic. Lumbosacral spine evaluation revealed a healed midline lumbar laminectomy scar with some Steri-Strips still in place. There was some minimal swelling and some diffuse tenderness, but no point tenderness and no discharge. There was no redness noted to the wound. There was severe limited range of motion to his lumbosacral spine with limited straight leg raising bilaterally. Hip rotation was full. Pulses were 4+, present and symmetrical throughout. IMPRESSION: My impression is that the patient suffers with what appears to be the acute onset of intractable low back pain as well as what appears to be a fever. The etiology of this is unclear. However, a postoperative lumbar wound infection needs to be ruled out. RECOMMENDATIONS AND PLAN: Aggressive pain control and an MRI scan of the lumbosacral spine which should be done with and without contrast, as well as inflammatory markers should be obtained including a sedimentation rate and a C-reactive protein level. Depending on the results of that, we will determine the appropriate further diagnostic and therapeutic approach. The patient, though, has been pancultured, and the results of that are pending. This is a patient of Dr. Mercado, who will return tomorrow and follow up. In any case, depending on the results of workup as well as his clinical course will determine the appropriate further diagnostic and therapeutic approach. Thank you for allowing me to participate in the care of this patient. MD JANELLE Siegel/tasha , 11:41 AM , 11:54 AM DEVIKA
[2018-01-26] MEDS ORDERED: Gadobutrol PF 10 MMOL/10 ML Vial (for RAD) IV.SIG ONE (14:44)
--- NOTE | 2018-01-26 15:08 | MR ---
EXAM DATE: 01/26/2018 2:55 PM EST AGE/SEX: 52 years / Male INDICATIONS: . Post-op low back pain. CLINICAL DATA: This is the patient's initial encounter. Patient reports that signs and symptoms have been present for 1 day and indicates a pain score of 5/10. MEDICAL/SURGICAL HISTORY: None. Discectomy, lumbar. Fusion, cervical. Colon resection. COMPARISON: No prior exams available for comparison. TECHNIQUE: Multiplanar, multisequence MRI examination of the lumbar spine was performed without and with 8 ml Gadavist (gadobutrol) contrast as a single exam dose. FINDINGS: The most caudal-appearing lumbar vertebra is numbered as L5. The marrow signal appears intact. No si gnificant compression deformities, spondylolisis, or spondylolesthesis is seen. L1-L2: No appreciable compromise to the thecal sac, or the exiting nerve roots is seen. The neural foramina and lateral recesses are patent bilaterally. L2-L3: No appreciable compromise to the thecal sac, or the exiting nerve roots is seen. The neural foramina and lateral recesses are patent bilaterally. L3-L4: No appreciable compromise to the thecal sac, or the exiting nerve roots is seen. The neural foramina and lateral recesses are patent bilaterally. L4-L5: Laminectomy defect is seen on the left with edema in the adjacent soft tissues. There is foca l fluid collection within the laminectomy site measures 1.3 cm in AP diameter does not demonstrate an y abnormal enhancement probably postsurgical change possibly resolving hematoma.There is slight neura l foramina compromise bilaterally due to bulging disc and hypertrophic changes. There is moderate the sheba sac stenosis due to bulging disc and postsurgical changes at the laminectomy site, slight central disc protrusion. L5-S1: Central disc protrusion is seen. There is slight neural foramina compromise bilaterally due to bulging disc and hypertrophic changes. There is moderate to severe overall thecal sac stenosis due to central disc/osteophyte complex and hy pertrophic changes. CONCLUSION: Moderate to severe thecal sac stenosis L4-5 and L5-S1 and neural foraminal compromise b ilaterally. Focal fluid collection within the laminectomy site most likely sterile postsurgical triana e without definite signs of abscess at this time. Electronically signed by: Belle Hui MD Board Certified Radiologist 01/26/2018 3:06 PM EST
[2018-01-26] MEDS: Vancomycin Inj 1,250 MG in Sodium Chlor 0.9% Inj 250 ML IV.SIG SCH (16:53)
[2018-01-27] MEDS: Sod Chloride 0.9% Inj 1,000 ML IV.CONT SCH ×3 (00:43→17:52)
[2018-01-27] MEDS: Vancomycin Inj 1,250 MG in Sodium Chlor 0.9% Inj 250 ML IV.SIG SCH ×2 (04:21→17:51)
[2018-01-27] MEDS: HYDROmorphone PF Inj 2 MG/ML Vial IV.PUSH PRN ×4 (04:53→22:22)
[2018-01-27 06:09] LABS: Hematocrit 39.4 % (39.0-51.0); Hemoglobin 13.7 gm/dL (13.0-17.0); Mean Corpuscular HGB Conc 34.6 % (32.0-36.0); Mean Corpuscular Hemoglobin 33.6 pg (27.0-34.0); Mean Corpuscular Volume 96.9 fL (80.0-100.0); Mean Platelet Volume 6.6 fL (7.0-11.0); Platelet Count 202 th/mm3 (150-450); Red Blood Count 4.07 mil/mm3 (4.50-5.90); Red Cell Distribution Width 12.6 % (11.6-17.2); White Blood Count 5.5 th/mm3 (4.0-11.0)
[2018-01-27 06:22] LABS: Prothrombin Time 10.5 sec (9.8-11.6)
[2018-01-27 06:28] LABS: Anion Gap 3 meq/L (5-15); Blood Urea Nitrogen 10 mg/dL (7-18); Carbon Dioxide 31.5 meq/L (21.0-32.0); Chloride 105 meq/L (98-107); Glomerular Filtration Rate Greater Than 89 mL/min (>89); Glucose,Random 127 mg/dL (74-106); Magnesium 2.3 mg/dL (1.5-2.5); Potassium 3.8 meq/L (3.5-5.1); Sodium 139 meq/L (136-145)
[2018-01-27] MEDS: Gabapentin 300 MG Capsule PO SCH ×3 (08:26→17:59)
[2018-01-27] MEDS: Senna/Docusate Sodium 8.6/50 MG Tablet PO SCH ×2 (08:26→22:18)
[2018-01-27] MEDS: Duloxetine 60 MG DR Capsule PO SCH ×2 (08:26→22:18)
[2018-01-27] MEDS: buPROPion 150 MG 12 HR Tablet PO SCH ×2 (08:26→22:18)
--- NOTE | 2018-01-27 09:02 | P.PNNS ---
Subjective Interval history: Pt was seen for a follow up evaluation in the ER. He states he was doing very well postoperatively until 2 days ago when he developed worsening low back pain and also started to have a fever. He states after the surgery his pain in his legs resolved and he didn't have any paresthesias and was ambulating well. He states he was not overdoing it but developed acute onset of low back pain that did not improve with rest. He presented to the ER when he starting having a fever. He denies any bowel or bladder incontinence. He states his incision had been healing well. Physical Exam Vital signs: Vital Signs 01/26/18 11:33 01/26/18 16:38 01/26/18 20:00 Temperature 101.6 F H 98.9 F 101.5 F H Pulse Rate 99 H 101 H 90 Respiratory Rate 15 20 15 Blood Pressure 130/78 133/79 127/72 Pulse Oximetry 91 L 93 L 96 01/27/18 00:00 01/27/18 01:07 01/27/18 04:00 Temperature 97.9 F 98.4 F Pulse Rate 86 78 86 Respiratory Rate 18 18 Blood Pressure 114/66 149/85 H Pulse Oximetry 98 98 01/27/18 07:51 Temperature 100.4 F H Pulse Rate 96 H Respiratory Rate 16 Blood Pressure 131/93 H Pulse Oximetry 97 Intake & Output 01/26/18 01/27/18 01/27/18 18:59 06:59 18:59 Intake Total 1162.5 / 1162.5 1602.5 / 1602.5 Output Total 500 / 500 Balance 1162.5 / 1162.5 1102.5 / 1102.5 Intake: IV 362.5 / 362.5 1362.5 / 1362.5 NS Inj 1,000 ML @ 100 mls/hr IV 1000 / 1000 .CONT .Q10H [facility] Rx#:[id number] Vancomycin Inj 1,250 MG In NS 262.5 / 262.5 262.5 / 262.5 Inj 250 ML @ 262.5 mls/hr IV. SIG Q12H [facility] Rx#:[id number] Rocephin Inj 2,000 MG In NS Inj 100 / 100 100 / 100 100 ML @ 200 mls/hr IV.SIG Q12H [facility] Rx#:[id number] Oral 800 / 800 240 / 240 Output: Urine 500 / 500 Other: # Voids 2 1 - Constitutional no acute distress, cooperative - Routine HEENT Exam Head: Present: normocephalic. Absent: atraumatic Eye: Present: PERRL - Routine Respiratory Exam Present: CTA bilaterally. Absent: respiratory distress, rhonchi, wheezes, crackles - Routine Cardiovascular Exam Present: RRR, S1, S2. Absent: murmur - Routine Abdominal Exam Present: soft, normoactive bowel sounds. Absent: tenderness, distended - Routine Skin Exam Absent: cyanosis, erythema Comments: Lumbar incision is clean and dry. No erythema or drainage. Steristrips intact. Pt has palpable muscle spasms to the left of his incision compared to the right. - Routine Neurological Exam Present: alert, moving all extremities. Absent: sensory deficit, motor deficit , altered mental status - Routine Psychiatric Exam Present: normal affect, cooperative. Absent: anxious, agitated Assessment and Plan - Assessment (1) Spinal stenosis of lumbar region with neurogenic claudication Code(s): M48.062 - Spinal stenosis, lumbar region with neurogenic claudication Status: Chronic (2) Protrusion of lumbar intervertebral disc Code(s): M51.26 - Other intervertebral disc displacement, lumbar region Status : Chronic (3) Lumbar facet arthropathy Code(s): M47.816 - Spondylosis without myelopathy or radiculopathy, lumbar region Status: Chronic (4) Acute exacerbation of chronic low back pain Code(s): M54.5 - Low back pain; G89.29 - Other chronic pain Status: Acute (5) Fever Code(s): R50.9 - Fever, unspecified Status: Acute Qualifiers: Encounter type: initial encounter (6) SIRS (systemic inflammatory response syndrome) Code(s): R65.10 - Systemic inflammatory response syndrome (SIRS) of non- infectious origin without acute organ dysfunction Status: Acute (7) Intractable back pain Code(s): M54.9 - Dorsalgia, unspecified Status: Acute (8) H/O laminectomy Code(s): Z98.890 - Other specified postprocedural states Status: Acute - Plan 52 y/o M s/p L4/L5 decompressive laminectomy with medical facetectomy and microdiscectomy. Pt had acute onset of low back pain 2 days ago and fever and presented to the ER. Incision is healing well without any signs of infection. Pt had an MRI with and without contrast that Dr. Mercado has reviewed and reveals post op changes with small seroma but no infection. He has palpable muscle spasms on the left of his incision that elicited some discomfort on palpation, although not severe, compared to the right. P: Continue with pain control and use muscle relaxants. Pt states he has used baclofen in the past but has stopped prior to his hospitalization. He has been started on this as well as Valium. Continue with incisional care. Increase activity as tolerated. Continue with medical workup.
--- NOTE | 2018-01-27 11:58 | MB ---
cc: Breezy Juarez MD DATE: 01/27/2018 REQUESTING PHYSICIAN: Dr. Tremaine Miles. REASON FOR CONSULTATION: Fever, tachycardia, and back pain. Recent laminectomy for spinal stenosis. HISTORY OF PRESENT ILLNESS: This is a 52-year-old male who underwent a lumbar laminectomy for spinal stenosis on 01/17/2018. The patient reports onset of acute severe back pain to the point where he was unable to walk yesterday. He also notes having fever at home. He presented to emergency department for evaluation. He had temperature of 101.9. Temperature persisted yesterday. Blood cultures were taken and 2 bottles of gram-positive cocci. His white blood cell count is normal. The patient was evaluated by Neurosurgery. Lumbar spine MRI shows [id number] thecal sac stenosis at the L4-L5 and L5-S1 and neural foraminal compromise bilaterally. Focal fluid collection within the laminectomy site, most likely steroid postsurgical change without definite signs of abscess at this time. This is the reading from the MRI. The patient continues to have very severe pain in his lower back. The pain occurs whenever he moves. He denies any radiation of the pain from the back. He notes occasional chills. He denies other symptoms. Sedimentation rate is 29. C-reactive protein was elevated at 5.6. PAST MEDICAL HISTORY: Posttraumatic stress disorder, arthritis, anxiety disorder, spinal stenosis, history of diverticulitis of the colon. PAST SURGICAL HISTORY: History of colon resection, hand surgery, history of vasectomy, history of fusion of the cervical spine. ALLERGIES: NO KNOWN DRUG ALLERGIES. MEDICATIONS: Baclofen, Wellbutrin, ceftriaxone, valium, Neurontin, Cymbalta, Mandie-Colace, Desyrel, vancomycin. SOCIAL HISTORY: The patient is a former smoker. Occasional alcohol. No illicit drugs. FAMILY HISTORY: Noncontributory. REVIEW OF SYSTEMS: Significant for back pain and fever. Otherwise, all systems have been reviewed and are negative. PHYSICAL EXAMINATION: GENERAL: This is a well-developed male who is in no acute distress. He is awake, alert, and oriented, well-developed male who is distressed by the back pain. VITAL SIGNS: Includes temperature 100.4, BP 131/93, respirations 16, heart rate 96. HEENT: The head is atraumatic. Extraocular movements grossly intact. Pupils reactive to light. No icterus. Oropharynx moist mucosa without lesion. NECK: Supple without adenopathy. LUNGS: Clear, decreased breath sounds. HEART: Regular S1 and S2 without murmurs, rubs, or gallops. ABDOMEN: Bowel sounds present. Soft, nontender. BACK: No tenderness. Surgical incision has no visible erythema or drainage. RECTAL: Not performed. EXTREMITIES: No clubbing, cyanosis, or edema. SKIN: No diffuse rash. NEUROLOGIC: No gross focal findings. PSYCHIATRIC: The patient is calm and cooperative. LABORATORY DATA: WBC 5.5, platelet count 202, hemoglobin 13.7. Estimated GFR greater than 89. Sodium 139. IMPRESSION: 1. Bacteremia in a patient with fever. The patient is status post laminectomy 10 days ago. Probably has a postoperative infection. 2. Sepsis indicated by positive blood culture along with fever. RECOMMENDATIONS: 1. Continue vancomycin. 2. Continue ceftriaxone. 3. Monitor blood cultures. 4. Monitor temperature. The patient's progress will be monitored and adjustment of antibiotics will be made depending on the blood culture results. Thank you for this consultation. MD LIUDMILA Beltran/dalila , 11:26 AM , 11:39 AM
--- NOTE | 2018-01-27 14:25 | P.PNIM ---
Subjective Interval history: Patient seen and evaluated splinted bedside. Patient continues to have lower back pain for which baclofen has been added to his regimen. Neurosurgery recommendations appreciated via EMR. Infectious disease evaluated and recommend continue antibiotics at this time. Overnight patient does endorse subjective fever. Physical Exam Vital signs: Last Vital Signs Temp 100.4 F H 01/27/18 07:51 Pulse 96 H 01/27/18 07:51 Resp 16 01/27/18 07:51 BP 131/93 H 01/27/18 07:51 Pulse Ox 97 01/27/18 07:51 Intake & Output 01/25/18 01/26/18 01/27/18 01/28/18 06:59 06:59 06:59 06:59 Intake Total 630 / 630 2765.0 / 2765.0 1100 / 1100 Output Total 300 / 300 500 / 500 Balance 330 / 330 2265.0 / 2265.0 1100 / 1100 Weight 81.647 kg General: No acute distress, conversational HEENT: EOMI Respiratory: Clear to auscultation anteriorly and posteriorly Prevascular: S1/S2. Tachycardia Gastrointestinal: Soft, nontender, nondistended, no guarding or rebound appreciated. Orthopedics: Lumbar paraspinal tenderness right greater than left. Neurology: Sensation intact in lower extremity bilaterally. No saddle anesthesia. Extremities: 2+ radial pulse right upper extremity. No calf tenderness. No lower extremity edema Results Labs CBC & Chem 7: 01/27/18 05:33 01/27/18 05:33 Labs: Microbiology 01/25/18 21:38 Blood - Peripheral Aerobic Blood Culture - Preliminary No growth in 2 days 01/25/18 21:38 Blood - Peripheral Anaerobic Blood Culture - Preliminary Staphylococcus epidermidis 01/25/18 21:30 Blood - Peripheral Aerobic Blood Culture - Preliminary No growth in 2 days 01/25/18 21:30 Blood - Peripheral Anaerobic Blood Culture - Preliminary gram positive cocci Imaging Imaging: Impressions Lumbar Spine MRI 01/26/18 00:00 CONCLUSION: Moderate to severe thecal sac stenosis L4-5 and L5-S1 and neural foraminal compromise bilaterally. Focal fluid collection within the laminectomy site most likely sterile postsurgical change without definite signs of abscess at this time. Assessment and Plan (1) Spinal stenosis of lumbar region with neurogenic claudication: Code(s): M48.062 - Spinal stenosis, lumbar region with neurogenic claudication Status: Chronic (2) Protrusion of lumbar intervertebral disc: Code(s): M51.26 - Other intervertebral disc displacement, lumbar region Status: Chronic (3) Lumbar facet arthropathy: Code(s): M47.816 - Spondylosis without myelopathy or radiculopathy, lumbar region Status: Chronic (4) Acute exacerbation of chronic low back pain: Code(s): M54.5 - Low back pain; G89.29 - Other chronic pain Status: Acute (5) Fever: Code(s): R50.9 - Fever, unspecified Status: Acute (6) SIRS (systemic inflammatory response syndrome): Code(s): R65.10 - Systemic inflammatory response syndrome (SIRS) of non-infectious origin without acute organ dysfunction Status: Acute (7) Intractable back pain: Code(s): M54.9 - Dorsalgia, unspecified Status: Acute (8) H/O laminectomy: Code(s): Z98.890 - Other specified postprocedural states Status: Acute (9) Bacteremia: Code(s): R78.81 - Bacteremia Status: Acute Plan Patient is a 52 year old male with recent lamenectomy presenting to ED for acute lumbar backpain found to have tachycardia and fever ( Tmax >100.4) on presentation admitted for concerns regarding possible infection postsurgically. Orthopedics: spinal stenosis s/p laminectomy - s/p OR on 01/28 - NeuroSx consulted and recommendations appreciated - MRI spine -reviewed and no evidence of focal fluid collection. Postsurgical changes as expected Baclofen and Valium for pain - continue gabapentin 300mg tid Infectious disease: Fever, bacteremia - exact source of fever unclear presently. Lumbar region appears c/d/i an MRI unremarkable for focal fluid collection - no urinary complaints and CXR unremarkable. - no rash concerning for cellulitis - continue emperic abx for now - BCx - NGTD - infectious disease input appreciated - CRP elevated > 5 01/27 patient with positive blood cultures. Will repeat a fresh set on 01/27 and follow-up. Once that is staph epidermidis which is a skin gisela contaminant. Awaiting identification of second set of blood cultures which most likely will also be contaminant but just in case we will repeat blood cultures. code: fc dvt ppx dispo: med/surg Progress Note: Quality VTE Deep Vein Thrombosis/Pulmonary Embolism Present on Admission: No _ (1) Fever Qualifiers: Encounter type: initial encounter Fever type:
[2018-01-27] MEDS ORDERED: Pharmacy Ordered Lab Info OTHER ONE (15:45)
[2018-01-27] MEDS: Baclofen 10 MG Tablet PO PRN (18:00)
[2018-01-27] MEDS: traZODone 100 MG Tablet PO SCH (22:18)
[2018-01-28] MEDS: traZODone 100 MG Tablet PO SCH ×2 (01:21→20:44)
[2018-01-28] MEDS: Sod Chloride 0.9% Inj 1,000 ML IV.CONT SCH ×4 (01:23→23:15)
[2018-01-28] MEDS ORDERED: Vancomycin Inj 900 MG in Sodium Chlor 0.9% Inj 250 ML IV.SIG SCH ×3 (04:00→12:00)
[2018-01-28 07:47] LABS: Hematocrit 38.4 % (39.0-51.0); Hemoglobin 13.5 gm/dL (13.0-17.0); Mean Corpuscular HGB Conc 35.2 % (32.0-36.0); Mean Corpuscular Hemoglobin 33.8 pg (27.0-34.0); Mean Corpuscular Volume 96.2 fL (80.0-100.0); Mean Platelet Volume 7.1 fL (7.0-11.0); Platelet Count 190 th/mm3 (150-450); Red Blood Count 3.99 mil/mm3 (4.50-5.90); Red Cell Distribution Width 12.5 % (11.6-17.2); White Blood Count 5.4 th/mm3 (4.0-11.0)
[2018-01-28 07:48] LABS: INR 1.1 Ratio; Prothrombin Time 10.7 sec (9.8-11.6)
[2018-01-28 08:03] LABS: Anion Gap 6 meq/L (5-15); Blood Urea Nitrogen 7 mg/dL (7-18); Carbon Dioxide 25.5 meq/L (21.0-32.0); Chloride 104 meq/L (98-107); Glomerular Filtration Rate Greater Than 89 mL/min (>89); Glucose,Random 114 mg/dL (74-106); Potassium 3.5 meq/L (3.5-5.1); Sodium 135 meq/L (136-145)
[2018-01-28] MEDS: HYDROmorphone PF Inj 2 MG/ML Vial IV.PUSH PRN ×3 (09:30→20:49)
[2018-01-28] MEDS: Baclofen 10 MG Tablet PO PRN (09:31)
[2018-01-28] MEDS: Duloxetine 60 MG DR Capsule PO SCH ×2 (09:31→20:45)
[2018-01-28] MEDS: Senna/Docusate Sodium 8.6/50 MG Tablet PO SCH ×2 (09:31→20:44)
[2018-01-28] MEDS: Gabapentin 300 MG Capsule PO SCH ×3 (09:31→18:41)
[2018-01-28] MEDS: buPROPion 150 MG 12 HR Tablet PO SCH ×2 (09:31→20:45)
[2018-01-28] MEDS ORDERED: Pharmacy Ordered Lab Info OTHER ONE (11:45)
[2018-01-28] MEDS: Baclofen 10 MG Tablet PO SCH ×2 (13:11→18:41)
[2018-01-28] MEDS: Acetaminophen 325 MG Tablet PO PRN (13:11)
--- NOTE | 2018-01-28 13:31 | P.PNID ---
Subjective Remarks: Patient is complaining of headache. Patient notes that he had sweats overnight. Notes that his back pain is still severe. Temperature is lower. Blood culture has staph epi. White blood cell count remains normal. This is a 52-year-old male who underwent a lumbar laminectomy for spinal stenosis on 01/17/2018. The patient reports onset of acute severe back pain to the point where he was unable to walk yesterday. He also notes having fever at home. He had temperature of 101.9. Temperature persisted yesterday. The patient was evaluated by Neurosurgery. Lumbar spine MRI shows [id number] thecal sac stenosis at the L4-L5 and L5-S1 and neural foraminal compromise bilaterally. Focal fluid collection within the laminectomy site, most likely postsurgical change without definite signs of abscess at this time. Past Medical History: PAST MEDICAL HISTORY: Posttraumatic stress disorder, arthritis, anxiety disorder, spinal stenosis, history of diverticulitis of the colon. PAST SURGICAL HISTORY: History of colon resection, hand surgery, history of vasectomy, history of fusion of the cervical spine. Allergies/Adverse Reactions: Allergies No Known Allergies Allergy (Verified 01/25/18 21:27) Objective Vital Signs 01/27/18 15:22 01/27/18 20:00 01/28/18 00:00 Temperature 98.4 F 99.6 F 99.8 F H Pulse Rate 89 98 H 83 Respiratory Rate 16 18 18 Blood Pressure 144/90 H 150/72 H 141/82 H Pulse Oximetry 97 97 97 01/28/18 01:00 01/28/18 04:00 01/28/18 08:00 Temperature 98.1 F 98.0 F Pulse Rate 78 77 75 Respiratory Rate 18 16 Blood Pressure 127/87 156/88 H Pulse Oximetry 97 97 01/28/18 11:57 Temperature 97.9 F Pulse Rate 76 Respiratory Rate 16 Blood Pressure 141/89 H Pulse Oximetry 100 Intake & Output 01/27/18 01/28/18 01/28/18 18:59 06:59 18:59 Intake Total 1100 / 1100 1852.5 / 1852.5 1000 / 1000 Balance 1100 / 1100 1852.5 / 1852.5 1000 / 1000 Weight 81.647 kg Intake: IV 1100 / 1100 1612.5 / 1612.5 1000 / 1000 NS Inj 1,000 ML @ 100 mls/hr IV 1000 / 1000 1000 / 1000 900 / 900 .CONT .Q10H [facility] Rx#:[id number] Vancomycin Inj 900 MG In NS Inj 250 / 250 250 ML @ 250 mls/hr IV.SIG Q8H [facility] Rx#:[id number] Vancomycin Inj 1,250 MG In NS 262.5 / 262.5 Inj 250 ML @ 262.5 mls/hr IV. SIG Q12H [facility] Rx#:[id number] Rocephin Inj 2,000 MG In NS Inj 100 / 100 100 / 100 100 / 100 100 ML @ 200 mls/hr IV.SIG Q12H [facility] Rx#:[id number] Oral 240 / 240 Other: # Voids 2 Date of Last Bowel Movement 01/27/18 01/27/18 # Bowel Movements 1 01/25/18 21:30 Blood - Peripheral Aerobic Blood Culture - Preliminary gram positive cocci 01/25/18 21:30 Blood - Peripheral Anaerobic Blood Culture - Preliminary Staphylococcus coag negative 01/25/18 21:38 Blood - Peripheral Aerobic Blood Culture - Preliminary No growth in 3 days 01/25/18 21:38 Blood - Peripheral Anaerobic Blood Culture - Preliminary Staphylococcus epidermidis 01/27/18 12:35 Blood - Peripheral Aerobic Blood Culture - Preliminary No growth in 1 day 01/27/18 12:35 Blood - Peripheral Anaerobic Blood Culture - Preliminary No growth in 1 day 01/27/18 12:30 Blood - Peripheral Aerobic Blood Culture - Preliminary No growth in 1 day 01/27/18 12:30 Blood - Peripheral Anaerobic Blood Culture - Preliminary No growth in 1 day Lab - Hematology Results 01/26/18 01/27/18 01/28/18 13:14 05:33 06:25 WBC 5.5 5.4 RBC 4.07 L 3.99 L Hgb 13.7 13.5 Hct 39.4 38.4 L MCV 96.9 96.2 MCH 33.6 33.8 MCHC 34.6 35.2 RDW 12.6 12.5 Plt Count 202 190 MPV 6.6 L 7.1 ESR 29 H Lab - Chemistry Results 01/26/18 01/27/18 01/28/18 13:14 05:33 06:25 Sodium 139 135 L Potassium 3.8 3.5 Chloride 105 104 Carbon Dioxide 31.5 25.5 Anion Gap 3 L 6 BUN 10 7 Creatinine 0.76 0.64 Estimated GFR Greater than 89 Greater than 89 Random Glucose 127 H 114 H Calcium 8.0 L 8.0 L Magnesium 2.3 2.0 C-Reactive Protein 5.60 H Imaging: ITS Impressions Chest X-Ray 01/25/18 21:28 CONCLUSION: No acute cardiopulmonary disease. Lumbar Spine CT 01/25/18 21:31 CONCLUSION: 1. Status post left laminectomy at the L3-L4 level. There is a small focus of air in the laminectomy site. Focal fluid collection is not clearly seen. 2. Moderate narrowing of the sac the L4-L5 level secondary to diffuse disc bulge and facet and ligamentum flavum hypertrophy. 3. Transitional changes with sacralization of L5. Thoracic Spine CT 01/25/18 21:31 CONCLUSION: Negative thoracic spine CT examination. Lumbar Spine MRI 01/26/18 00:00 CONCLUSION: Moderate to severe thecal sac stenosis L4-5 and L5-S1 and neural foraminal compromise bilaterally. Focal fluid collection within the laminectomy site most likely sterile postsurgical change without definite signs of abscess at this time. Physical Exam: PHYSICAL EXAMINATION: GENERAL: No acute distress. Awake, alert, and oriented, well-developed male who is distressed by the back pain. HEENT: The head is atraumatic. Extraocular movements grossly intact. Pupils reactive to light. No icterus. Oropharynx moist mucosa without lesion. NECK: Supple without adenopathy. LUNGS: Clear, decreased breath sounds. HEART: Regular S1 and S2 without murmurs, rubs, or gallops. ABDOMEN: Bowel sounds present. Soft, nontender. BACK: Tenderness upon deep palpation of the lumbar spine. Surgical incision has no visible erythema or drainage. EXTREMITIES: No clubbing, cyanosis, or edema. SKIN: No diffuse rash. NEUROLOGIC: No gross focal findings. PSYCHIATRIC: Calm and cooperative. Assessment and Plan - Plan IMPRESSION: 1. Bacteremia. Staph coag negative and blood culture. 2. The patient is status post laminectomy 10 days ago. Probably has a postoperative infection. 2. Sepsis indicated by positive blood culture along with fever. Probable surgical site source. RECOMMENDATIONS: 1. Continue vancomycin. 2. Continue ceftriaxone. 3. Monitor blood cultures. 4. Monitor temperature.
--- NOTE | 2018-01-28 16:21 | P.PNNS ---
Subjective Interval history: Pt awake and alert. He states he has low back pain but is improving. He is able to get oob now and ambulate. No fevers. No radiculopathy in LEs. No paresthesias in LEs. Physical Exam Vital signs: Vital Signs 01/27/18 20:00 01/28/18 00:00 01/28/18 01:00 Temperature 99.6 F 99.8 F H Pulse Rate 98 H 83 78 Respiratory Rate 18 18 Blood Pressure 150/72 H 141/82 H Pulse Oximetry 97 97 01/28/18 04:00 01/28/18 08:00 01/28/18 11:57 Temperature 98.1 F 98.0 F 97.9 F Pulse Rate 77 75 76 Respiratory Rate 18 16 16 Blood Pressure 127/87 156/88 H 141/89 H Pulse Oximetry 97 97 100 Intake & Output 01/27/18 01/28/18 01/28/18 18:59 06:59 18:59 Intake Total 1100 / 1100 1852.5 / 1852.5 1350 / 1350 Balance 1100 / 1100 1852.5 / 1852.5 1350 / 1350 Weight 81.647 kg Intake: IV 1100 / 1100 1612.5 / 1612.5 1350 / 1350 NS Inj 1,000 ML @ 100 mls/hr IV 1000 / 1000 1000 / 1000 1000 / 1000 .CONT .Q10H [facility] Rx#:[id number] Vancomycin Inj 900 MG In NS Inj 250 / 250 250 ML @ 250 mls/hr IV.SIG Q8H [facility] Rx#:[id number] Vancomycin Inj 900 MG In NS Inj 262.5 / 262.5 250 / 250 250 ML @ 250 mls/hr IV.SIG Q8H [facility] Rx#:[id number] Rocephin Inj 2,000 MG In NS Inj 100 / 100 100 / 100 100 / 100 100 ML @ 200 mls/hr IV.SIG Q12H [facility] Rx#:[id number] Oral 240 / 240 Other: # Voids 2 Date of Last Bowel Movement 01/27/18 01/27/18 01/27/18 # Bowel Movements 1 - Constitutional no acute distress, average body habitus, cooperative - Routine HEENT Exam Head: Present: normocephalic Eye: Present: PERRL - Routine Respiratory Exam Present: CTA bilaterally. Absent: respiratory distress, rhonchi, wheezes - Routine Cardiovascular Exam Present: RRR, S1, S2. Absent: murmur - Routine Abdominal Exam Present: soft, normoactive bowel sounds. Absent: distended, firm - Routine Skin Exam Absent: cyanosis, erythema Comments: Pt log rolled incision is clean and dry without any signs of infection. - Routine Neurological Exam Present: alert, moving all extremities, normal speech. Absent: sensory deficit , motor deficit - Routine Psychiatric Exam Present: normal affect, cooperative. Absent: anxious, agitated Assessment and Plan - Assessment (1) Spinal stenosis of lumbar region with neurogenic claudication Code(s): M48.062 - Spinal stenosis, lumbar region with neurogenic claudication Status: Chronic (2) Protrusion of lumbar intervertebral disc Code(s): M51.26 - Other intervertebral disc displacement, lumbar region Status : Chronic (3) Lumbar facet arthropathy Code(s): M47.816 - Spondylosis without myelopathy or radiculopathy, lumbar region Status: Chronic (4) Acute exacerbation of chronic low back pain Code(s): M54.5 - Low back pain; G89.29 - Other chronic pain Status: Acute (5) Fever Code(s): R50.9 - Fever, unspecified Status: Acute Qualifiers: Encounter type: initial encounter (6) SIRS (systemic inflammatory response syndrome) Code(s): R65.10 - Systemic inflammatory response syndrome (SIRS) of non- infectious origin without acute organ dysfunction Status: Acute (7) Intractable back pain Code(s): M54.9 - Dorsalgia, unspecified Status: Acute (8) H/O laminectomy Code(s): Z98.890 - Other specified postprocedural states Status: Acute - Plan 52 y/o M s/p L4/L5 decompressive laminectomy with medical facetectomy and microdiscectomy. Pt had acute onset of low back pain 2 days ago and fever and presented to the ER. Incision is healing well without any signs of infection. Pt had an MRI with and without contrast that Dr. Mercado has reviewed and reveals post op changes with small seroma but no infection. He has palpable muscle spasms on the left of his incision that elicited some discomfort on palpation, although not severe, compared to the right. Pt had bacteremia upon presentation and fever. Fever has resolved with antibiotics. P: Continue with pain control and use muscle relaxants. Continue with incisional care. Increase activity with PT Continue with antibiotics.
--- NOTE | 2018-01-28 17:27 | P.PNIM ---
Subjective Interval history: 52-year-old gentleman admitted with post operative severe back pain and fever found to have bacteremia with staph epidermidis, repeat blood cultures negative to date. Patient seen and examined earlier, states that he still having severe pain in his back but he is able to ambulate, denies any shortness of breath or chest pain no nausea vomiting Physical Exam Vital signs: Last Vital Signs Temp 98.1 F 01/28/18 16:00 Pulse 83 01/28/18 16:00 Resp 20 01/28/18 16:00 BP 139/95 H 01/28/18 16:00 Pulse Ox 98 01/28/18 16:00 Intake & Output 01/26/18 01/27/18 01/28/18 01/29/18 06:59 06:59 06:59 06:59 Intake Total 630 / 630 2765.0 / 2765.0 2952.5 / 2952.5 1350 / 1350 Output Total 300 / 300 500 / 500 Balance 330 / 330 2265.0 / 2265.0 2952.5 / 2952.5 1350 / 1350 Weight 81.647 kg 81.647 kg Well-developed well-nourished 52-year-old white male Awake alert oriented no acute distress Heart S1-S2 regular Lungs clear bilateral no wheezing rhonchi Abdomen soft nondistended positive bowel sounds Extremities no clubbing cyanosis no edema Back exam incision clean dry no surrounding erythema no significant edema, Results Labs CBC & Chem 7: 01/28/18 06:25 01/28/18 06:25 Labs: Microbiology 01/25/18 21:30 Blood - Peripheral Aerobic Blood Culture - Preliminary gram positive cocci 01/25/18 21:30 Blood - Peripheral Anaerobic Blood Culture - Preliminary Staphylococcus coag negative 01/25/18 21:38 Blood - Peripheral Aerobic Blood Culture - Preliminary No growth in 3 days 01/25/18 21:38 Blood - Peripheral Anaerobic Blood Culture - Preliminary Staphylococcus epidermidis 01/27/18 12:35 Blood - Peripheral Aerobic Blood Culture - Preliminary No growth in 1 day 01/27/18 12:35 Blood - Peripheral Anaerobic Blood Culture - Preliminary No growth in 1 day 01/27/18 12:30 Blood - Peripheral Aerobic Blood Culture - Preliminary No growth in 1 day 01/27/18 12:30 Blood - Peripheral Anaerobic Blood Culture - Preliminary No growth in 1 day Assessment and Plan (1) Spinal stenosis of lumbar region with neurogenic claudication: Code(s): M48.062 - Spinal stenosis, lumbar region with neurogenic claudication Status: Chronic (2) Protrusion of lumbar intervertebral disc: Code(s): M51.26 - Other intervertebral disc displacement, lumbar region Status: Chronic (3) Lumbar facet arthropathy: Code(s): M47.816 - Spondylosis without myelopathy or radiculopathy, lumbar region Status: Chronic (4) Acute exacerbation of chronic low back pain: Code(s): M54.5 - Low back pain; G89.29 - Other chronic pain Status: Acute (5) Fever: Code(s): R50.9 - Fever, unspecified Status: Acute (6) SIRS (systemic inflammatory response syndrome): Code(s): R65.10 - Systemic inflammatory response syndrome (SIRS) of non-infectious origin without acute organ dysfunction Status: Acute (7) Intractable back pain: Code(s): M54.9 - Dorsalgia, unspecified Status: Acute (8) H/O laminectomy: Code(s): Z98.890 - Other specified postprocedural states Status: Acute (9) Bacteremia: Code(s): R78.81 - Bacteremia Status: Acute Plan INTRACTABLE BACK PAIN - cont pain control as tolerated, POST OP LAMINECTOMY - mri finding of seroma and expected post op changes w no evidence of abscess or infection, no wound infection, cont pt as tolerated SIRS w BACTEREMIA w staph epidermidis that may be contaminant but w 2/2, repeat cx neg to date, cont abx per ID, no fever, nml wbc - further abx therapy recs per ID. dvt prophylaxis - heparin sq dispo - home w [facility] when ok w ID Progress Note: Quality VTE Deep Vein Thrombosis/Pulmonary Embolism Present on Admission: No _ (1) Fever Qualifiers: Encounter type: initial encounter Fever type:
[2018-01-28] MEDS: Vancomycin Inj 1,000 MG in Sodium Chlor 0.9% Inj 250 ML IV.SIG SCH (20:43)
[2018-01-28] MEDS ORDERED: Vancomycin Inj 1,000 MG in Sodium Chlor 0.9% Inj 250 ML IV.SIG SCH (21:00)
[2018-01-29] MEDS: Vancomycin Inj 1,000 MG in Sodium Chlor 0.9% Inj 250 ML IV.SIG SCH ×3 (05:48→20:21)
[2018-01-29] MEDS: HYDROmorphone PF Inj 2 MG/ML Vial IV.PUSH PRN (05:53)
[2018-01-29] MEDS: Baclofen 10 MG Tablet PO SCH ×3 (08:12→17:05)
[2018-01-29] MEDS: Gabapentin 300 MG Capsule PO SCH ×3 (08:13→17:05)
[2018-01-29] MEDS: buPROPion 150 MG 12 HR Tablet PO SCH ×2 (08:13→20:21)
[2018-01-29] MEDS: Senna/Docusate Sodium 8.6/50 MG Tablet PO SCH ×2 (08:13→20:21)
[2018-01-29] MEDS: Sod Chloride 0.9% Inj 1,000 ML IV.CONT SCH ×2 (08:16→19:51)
[2018-01-29] MEDS: Duloxetine 60 MG DR Capsule PO SCH ×2 (08:16→20:21)
[2018-01-29] MEDS ORDERED: Acetaminophen 325 MG Tablet PO PRN (09:53)
[2018-01-29] MEDS ORDERED: HYDROmorphone PF Inj 2 MG/ML Vial IV.PUSH PRN (09:53)
--- NOTE | 2018-01-29 11:27 | P.PNID ---
Subjective Remarks: Patient states that he feels better. No longer has headache. Sitting in bedside chair. Notes that he still gets a lot of sweats. Notes that he still has back pain. Temperature is lower. Denies chills. Blood culture has staph epi. Repeat blood culture has no growth in 1 day. White blood cell count remains normal. This is a 52-year-old male who underwent a lumbar laminectomy for spinal stenosis on 01/17/2018. The patient reports onset of acute severe back pain to the point where he was unable to walk yesterday. He also notes having fever at home. He had temperature of 101.9. Temperature persisted yesterday. The patient was evaluated by Neurosurgery. Lumbar spine MRI shows [id number] thecal sac stenosis at the L4-L5 and L5-S1 and neural foraminal compromise bilaterally. Focal fluid collection within the laminectomy site, most likely postsurgical change without definite signs of abscess. Past Medical History: PAST MEDICAL HISTORY: Posttraumatic stress disorder, arthritis, anxiety disorder, spinal stenosis, history of diverticulitis of the colon. PAST SURGICAL HISTORY: History of colon resection, hand surgery, history of vasectomy, history of fusion of the cervical spine. Allergies/Adverse Reactions: Allergies No Known Allergies Allergy (Verified 01/25/18 21:27) Objective Vital Signs 01/28/18 11:57 01/28/18 16:00 01/28/18 20:00 Temperature 97.9 F 98.1 F 98.1 F Pulse Rate 76 83 86 Respiratory Rate 16 20 18 Blood Pressure 141/89 H 139/95 H 138/83 Pulse Oximetry 100 98 98 01/29/18 00:00 01/29/18 04:00 01/29/18 04:14 Temperature 98.0 F 98.7 F Pulse Rate 88 76 Respiratory Rate 18 18 16 Blood Pressure 130/85 126/71 Pulse Oximetry 95 96 01/29/18 04:30 01/29/18 08:00 Temperature 97.3 F L Pulse Rate 85 69 Respiratory Rate 20 Blood Pressure 141/97 H Pulse Oximetry 98 Intake & Output 01/28/18 01/29/18 01/29/18 18:59 06:59 18:59 Intake Total 1350 / 1350 1600 / 1600 100 / 100 Output Total 400 / 400 Balance 1350 / 1350 1200 / 1200 100 / 100 Weight 88.8 kg Intake: IV 1350 / 1350 1600 / 1600 100 / 100 NS Inj 1,000 ML @ 100 mls/hr IV 1000 / 1000 1000 / 1000 .CONT .Q10H [facility] Rx#:[id number] Vancomycin Inj 1,000 MG In NS 500 / 500 Inj 250 ML @ 250 mls/hr IV.SIG Q8H [facility] Rx#:[id number] Vancomycin Inj 900 MG In NS Inj 250 / 250 250 ML @ 250 mls/hr IV.SIG Q8H [facility] Rx#:[id number] Rocephin Inj 2,000 MG In NS Inj 100 / 100 100 / 100 100 / 100 100 ML @ 200 mls/hr IV.SIG Q12H [facility] Rx#:[id number] Output: Urine 400 / 400 Other: # Voids 1 1 Date of Last Bowel Movement 01/27/18 01/28/18 01/28/18 01/27/18 12:35 Blood - Peripheral Aerobic Blood Culture - Preliminary No growth in 2 days 01/27/18 12:35 Blood - Peripheral Anaerobic Blood Culture - Preliminary No growth in 2 days 01/27/18 12:30 Blood - Peripheral Aerobic Blood Culture - Preliminary No growth in 2 days 01/27/18 12:30 Blood - Peripheral Anaerobic Blood Culture - Preliminary No growth in 2 days 01/25/18 21:38 Blood - Peripheral Aerobic Blood Culture - Preliminary No growth in 4 days 01/25/18 21:38 Blood - Peripheral Anaerobic Blood Culture - Preliminary Staphylococcus epidermidis 01/25/18 21:30 Blood - Peripheral Aerobic Blood Culture - Preliminary gram positive cocci 01/25/18 21:30 Blood - Peripheral Anaerobic Blood Culture - Preliminary Staphylococcus coag negative Lab - Hematology Results 01/28/18 06:25 WBC 5.4 RBC 3.99 L Hgb 13.5 Hct 38.4 L MCV 96.2 MCH 33.8 MCHC 35.2 RDW 12.5 Plt Count 190 MPV 7.1 Lab - Chemistry Results 01/28/18 06:25 Sodium 135 L Potassium 3.5 Chloride 104 Carbon Dioxide 25.5 Anion Gap 6 BUN 7 Creatinine 0.64 Estimated GFR Greater than 89 Random Glucose 114 H Calcium 8.0 L Magnesium 2.0 Imaging: ITS Impressions Chest X-Ray 01/25/18 21:28 CONCLUSION: No acute cardiopulmonary disease. Lumbar Spine CT 01/25/18 21:31 CONCLUSION: 1. Status post left laminectomy at the L3-L4 level. There is a small focus of air in the laminectomy site. Focal fluid collection is not clearly seen. 2. Moderate narrowing of the sac the L4-L5 level secondary to diffuse disc bulge and facet and ligamentum flavum hypertrophy. 3. Transitional changes with sacralization of L5. Thoracic Spine CT 01/25/18 21:31 CONCLUSION: Negative thoracic spine CT examination. Lumbar Spine MRI 01/26/18 00:00 CONCLUSION: Moderate to severe thecal sac stenosis L4-5 and L5-S1 and neural foraminal compromise bilaterally. Focal fluid collection within the laminectomy site most likely sterile postsurgical change without definite signs of abscess at this time. Physical Exam: PHYSICAL EXAMINATION: GENERAL: No acute distress. HEENT: The head is atraumatic. Extraocular movements grossly intact. Pupils reactive to light. No icterus. Oropharynx moist mucosa without lesion. NECK: Supple without adenopathy. LUNGS: Decreased breath sounds. HEART: Regular S1 and S2 without murmurs, rubs, or gallops. ABDOMEN: Bowel sounds present. Soft, nontender. BACK: Mild tenderness upon deep palpation of the lumbar spine. Surgical incision has no visible erythema or drainage. EXTREMITIES: No clubbing, cyanosis, or edema. SKIN: No diffuse rash. NEUROLOGIC: No gross focal findings. PSYCHIATRIC: Calm and cooperative. Assessment and Plan - Plan IMPRESSION: 1. Bacteremia. Staph coag negative and blood culture. 2. The patient is status post laminectomy 10 days ago. Probably has a postoperative infection. 2. Sepsis indicated by positive blood culture along with fever. Probable surgical site source. RECOMMENDATIONS: 1. Continue vancomycin. 2. Stop ceftriaxone. 3. Monitor blood cultures. 4. Monitor temperature. Treatment for the postop infection with a 10-day course of vancomycin if the repeat blood cultures are negative at 72 hours.
--- NOTE | 2018-01-29 16:44 | P.PNNS ---
Subjective Interval history: Pt awake and alert. Complains of left sided headache but not positional, does not improve with laying down. No n/v. Pt able to sit up and walk short distances. He has low back pain but improved since admission. No drainage from incision. No further fevers. No paresthesias in face or extremities. Physical Exam Vital signs: Vital Signs 01/28/18 20:00 01/29/18 00:00 01/29/18 04:00 Temperature 98.1 F 98.0 F 98.7 F Pulse Rate 86 88 76 Respiratory Rate 18 Blood Pressure 138/83 130/85 126/71 Pulse Oximetry 98 95 96 01/29/18 04:14 01/29/18 04:30 01/29/18 08:00 Temperature 97.3 F L Pulse Rate 85 69 Respiratory Rate 16 20 Blood Pressure 141/97 H Pulse Oximetry 98 01/29/18 12:00 01/29/18 15:44 Temperature 98.1 F 96.4 F L Pulse Rate 83 88 Respiratory Rate 20 20 Blood Pressure 133/89 127/66 Pulse Oximetry 97 97 Intake & Output 01/28/18 01/29/18 01/29/18 18:59 06:59 18:59 Intake Total 1350 / 1350 1600 / 1600 100 / 100 Output Total 400 / 400 Balance 1350 / 1350 1200 / 1200 100 / 100 Weight 88.8 kg Intake: IV 1350 / 1350 1600 / 1600 100 / 100 NS Inj 1,000 ML @ 100 mls/hr IV 1000 / 1000 1000 / 1000 .CONT .Q10H [facility] Rx#:[id number] Vancomycin Inj 1,000 MG In NS 500 / 500 Inj 250 ML @ 250 mls/hr IV.SIG Q8H [facility] Rx#:[id number] Vancomycin Inj 900 MG In NS Inj 250 / 250 250 ML @ 250 mls/hr IV.SIG Q8H [facility] Rx#:[id number] Rocephin Inj 2,000 MG In NS Inj 100 / 100 100 / 100 100 / 100 100 ML @ 200 mls/hr IV.SIG Q12H [facility] Rx#:[id number] Output: Urine 400 / 400 Other: # Voids 1 1 4 Date of Last Bowel Movement 01/27/18 01/28/18 01/28/18 - Constitutional no acute distress, average body habitus - Routine HEENT Exam Head: Present: normocephalic Eye: Present: PERRL - Routine Neck Exam Present: supple - Routine Respiratory Exam Present: CTA bilaterally. Absent: respiratory distress, rhonchi, wheezes - Routine Cardiovascular Exam Present: RRR, S1, S2. Absent: murmur - Routine Abdominal Exam Present: soft, normoactive bowel sounds. Absent: distended, firm - Routine Skin Exam Absent: cyanosis, erythema Comments: Incision clean and dry. No signs of infection. No drainage or bulging. Palpable muscle spasms are resolved. - Routine Neurological Exam Present: alert, oriented X3, moving all extremities, normal speech. Absent: sensory deficit, motor deficit - Routine Psychiatric Exam Present: normal affect, cooperative. Absent: anxious, agitated Assessment and Plan - Assessment (1) Spinal stenosis of lumbar region with neurogenic claudication Code(s): M48.062 - Spinal stenosis, lumbar region with neurogenic claudication Status: Chronic (2) Protrusion of lumbar intervertebral disc Code(s): M51.26 - Other intervertebral disc displacement, lumbar region Status : Chronic (3) Lumbar facet arthropathy Code(s): M47.816 - Spondylosis without myelopathy or radiculopathy, lumbar region Status: Chronic (4) Acute exacerbation of chronic low back pain Code(s): M54.5 - Low back pain; G89.29 - Other chronic pain Status: Acute (5) Fever Code(s): R50.9 - Fever, unspecified Status: Acute Qualifiers: Encounter type: initial encounter (6) SIRS (systemic inflammatory response syndrome) Code(s): R65.10 - Systemic inflammatory response syndrome (SIRS) of non- infectious origin without acute organ dysfunction Status: Acute (7) Intractable back pain Code(s): M54.9 - Dorsalgia, unspecified Status: Acute (8) H/O laminectomy Code(s): Z98.890 - Other specified postprocedural states Status: Acute - Plan 52 y/o M s/p L4/L5 decompressive laminectomy with medical facetectomy and microdiscectomy. Pt had acute onset of low back pain 2 days ago and fever and presented to the ER. Incision is healing well without any signs of infection. Pt had an MRI with and without contrast that Dr. Mercado has reviewed and reveals post op changes with small seroma but no infection. He has palpable muscle spasms on the left of his incision that elicited some discomfort on palpation, although not severe, compared to the right. Pt had bacteremia upon presentation and fever. Fever has resolved with antibiotics. Palpable muscle spasms have resolved. P: Continue with pain control and use muscle relaxants. Continue with incisional care. Increase activity with PT Continue with antibiotics. Discharge when medically stable. No neurosurgical intervention planned.
--- NOTE | 2018-01-29 20:11 | P.PNIM ---
Subjective Interval history: Follow up for back pain s/p laminectomy, staph bacteremia. Patient is currently doing well. Sitting in his chair. On room air. Denies any chest pain, SOB, fever, chills. Physical Exam Vital signs: Last Vital Signs Temp 96.4 F L 01/29/18 15:44 Pulse 88 01/29/18 15:44 Resp 20 01/29/18 15:44 BP 127/66 01/29/18 15:44 Pulse Ox 97 01/29/18 15:44 Intake & Output 01/27/18 01/28/18 01/29/18 01/30/18 06:59 06:59 06:59 06:59 Intake Total 2765.0 / 2765.0 2952.5 / 2952.5 2950 / 2950 1350 / 1350 Output Total 500 / 500 400 / 400 Balance 2265.0 / 2265.0 2952.5 / 2952.5 2550 / 2550 1350 / 1350 Weight 81.647 kg 88.8 kg Narrative: PE: GENERAL: Very pleasant middle-aged man in no acute distress, but appears uncomfortable w/ movement. at bedside. SKIN: Focused skin assessment warm and dry. HEENT: PERRLA, EOMI. No scleral icterus or conjunctival pallor. No lid lag or facial droop. CARDIOVASCULAR: Regular rate and rhythm. No obvious murmurs to auscultation. No chest tenderness to palpation. RESPIRATORY: No obvious rhonchi or wheezing. Clear to auscultation. Breath sounds equal bilaterally. GASTROINTESTINAL: Abdomen soft, non-tender, nondistended. BS normal. MUSCULOSKELETAL: Extremities without clubbing, cyanosis, or edema. No obvious deformities. Lumbar incision intact, no erythema/edema, Steri-Strips in place. NEUROLOGICAL: Awake, alert and oriented x4. No focal neurologic deficits. Moving both upper and lower extremities spontaneously. PSYCHIATRIC: Appropriate mood and affect. Insight and judgment normal. Results Labs CBC & Chem 7: 01/28/18 06:25 01/28/18 06:25 Labs: Microbiology 01/25/18 21:30 Blood - Peripheral Aerobic Blood Culture - Final Staphylococcus coag negative 01/25/18 21:30 Blood - Peripheral Anaerobic Blood Culture - Final Staphylococcus epidermidis 01/25/18 21:38 Blood - Peripheral Aerobic Blood Culture - Preliminary No growth in 4 days 01/25/18 21:38 Blood - Peripheral Anaerobic Blood Culture - Final Staphylococcus epidermidis 01/27/18 12:35 Blood - Peripheral Aerobic Blood Culture - Preliminary No growth in 2 days 01/27/18 12:35 Blood - Peripheral Anaerobic Blood Culture - Preliminary No growth in 2 days 01/27/18 12:30 Blood - Peripheral Aerobic Blood Culture - Preliminary No growth in 2 days 01/27/18 12:30 Blood - Peripheral Anaerobic Blood Culture - Preliminary No growth in 2 days Assessment and Plan (1) Spinal stenosis of lumbar region with neurogenic claudication: Code(s): M48.062 - Spinal stenosis, lumbar region with neurogenic claudication Status: Chronic (2) Protrusion of lumbar intervertebral disc: Code(s): M51.26 - Other intervertebral disc displacement, lumbar region Status: Chronic (3) Lumbar facet arthropathy: Code(s): M47.816 - Spondylosis without myelopathy or radiculopathy, lumbar region Status: Chronic (4) Acute exacerbation of chronic low back pain: Code(s): M54.5 - Low back pain; G89.29 - Other chronic pain Status: Acute (5) Fever: Code(s): R50.9 - Fever, unspecified Status: Acute (6) SIRS (systemic inflammatory response syndrome): Code(s): R65.10 - Systemic inflammatory response syndrome (SIRS) of non-infectious origin without acute organ dysfunction Status: Acute (7) Intractable back pain: Code(s): M54.9 - Dorsalgia, unspecified Status: Acute (8) H/O laminectomy: Code(s): Z98.890 - Other specified postprocedural states Status: Acute (9) Bacteremia: Code(s): R78.81 - Bacteremia Status: Acute Plan This is a 52-year-old male with a PMH of Chronic Back Pain, Anxiety, Depression and PTSD who presented to the ER with complaints of severe back pain starting on 01/26/2018. S/p Lumbar L4-L5 Laminectomy by Dr. Mercado on 01/17/18 for spinal stenosis, states he was doing well post-op until 01/26/2018 when he developed acute onset of severe back pain, states unable to walk due to symptoms. Pain is located in lumbar region, severe, 10/10, non-radiating, worse w/ movement. Denies injury or trauma. On arrival, BP 138/82, HR 101, O2 sat 97% on RA, Temp 101.9 CBC unremarkable. Lumbar spinal stenosis -s/p L4-L5 laminectomy -Neurosurgery following. MRI studies did not show any evidence of infection -Continue pain control. Staph Coag negative bacteremia -ID is following and recommends 10 days of abx. Full code. Ambulation Discharge pending ID and Neurosurgery clearance. Progress Note: Quality VTE Deep Vein Thrombosis/Pulmonary Embolism Present on Admission: No _ (1) Fever Qualifiers: Encounter type: initial encounter Fever type:
[2018-01-29] MEDS: traZODone 100 MG Tablet PO SCH (20:21)
[2018-01-30] MEDS: Vancomycin Inj 1,000 MG in Sodium Chlor 0.9% Inj 250 ML IV.SIG SCH ×2 (04:50→12:34)
[2018-01-30] MEDS: Duloxetine 60 MG DR Capsule PO SCH ×2 (08:19→20:15)
[2018-01-30] MEDS: Gabapentin 300 MG Capsule PO SCH ×3 (08:19→17:13)
[2018-01-30] MEDS: Baclofen 10 MG Tablet PO SCH ×3 (08:19→17:13)
[2018-01-30] MEDS: Senna/Docusate Sodium 8.6/50 MG Tablet PO SCH ×2 (08:19→20:15)
[2018-01-30] MEDS: Sod Chloride 0.9% Inj 1,000 ML IV.CONT SCH ×3 (08:19→21:57)
[2018-01-30] MEDS: buPROPion 150 MG 12 HR Tablet PO SCH ×2 (08:19→20:16)
[2018-01-30] MEDS ORDERED: Pharmacy Ordered Lab Info OTHER ONE (11:45)
--- NOTE | 2018-01-30 13:16 | P.PNIM ---
Subjective Interval history: Follow up for back pain s/p laminectomy, staph bacteremia. Patient seen and examined today. Reports he is doing okay. Asking when is he going home or if he is going home with IV antibiotics. Discussed with patient, plan for waiting on the blood cultures final results and may possibly go home with IV antibiotics once a day per recommendation of infectious disease. Verbalized understanding. Denies pain and discomfort. Denies SOB/ dyspnea. Denies chest pain, palpitations, headaches, dizziness. Denies fevers, chills, n/v/d. Denies dysuria. Physical Exam Vital signs: Vital Signs 01/29/18 15:44 01/29/18 20:00 01/30/18 00:00 Temperature 96.4 F L 98.2 F 98.0 F Pulse Rate 88 97 H 78 Respiratory Rate 20 20 20 Blood Pressure 127/66 126/84 142/89 H Pulse Oximetry 97 98 95 01/30/18 04:00 01/30/18 07:00 01/30/18 08:00 Temperature 98.7 F 97.9 F Pulse Rate 84 80 Respiratory Rate 20 12 18 Blood Pressure 142/91 H 151/91 H Pulse Oximetry 96 95 Intake & Output 01/29/18 01/30/18 01/30/18 18:59 06:59 18:59 Intake Total 350 / 350 2880 / 2880 100 / 100 Balance 350 / 350 2880 / 2880 100 / 100 Weight 91.5 kg Intake: IV 350 / 350 2600 / 2600 100 / 100 NS Inj 1,000 ML @ 100 mls/hr IV 1999 / 1999 .CONT .Q10H [facility] Rx#:[id number] Vancomycin Inj 1,000 MG In NS 250 / 250 500 / 500 Inj 250 ML @ 250 mls/hr IV.SIG Q8H [facility] Rx#:[id number] Rocephin Inj 2,000 MG In NS Inj 100 / 100 100 / 100 100 / 100 100 ML @ 200 mls/hr IV.SIG Q12H [facility] Rx#:[id number] Oral 280 / 280 Other: # Voids 3 2 Date of Last Bowel Movement 01/28/18 01/29/18 01/30/18 Narrative: GENERAL: This is a pleasant, well-nourished, well-developed patient, in no apparent distress. SKIN: Warm and dry. Steri-Strip lower mid back clean dry and intact. No erythema or edema in the surrounding areas HEENT: Normocephalic. Pupils equal round and reactive. Nose without bleeding. Airway patent. NECK: Trachea midline. No JVD. Supple. CARDIOVASCULAR: Regular rate and rhythm without murmurs, gallops, or rubs. RESPIRATORY: Clear to auscultation. Breath sounds equal bilaterally. No wheezes , rales, or rhonchi. GASTROINTESTINAL: Abdomen soft, non-tender, nondistended. Bowel Sounds normoactive x4. MUSCULOSKELETAL: Extremities without clubbing, cyanosis, or edema. NEUROLOGICAL: Awake and alert. No focal neuro deficit. Moves all extremities. Normal speech. Results - Labs CBC & Chem 7: 01/28/18 06:25 01/28/18 06:25 Laboratory Results - last 24 hr 01/30/18 11:45 Vancomycin Trough 9.5 Microbiology 01/27/18 12:35 Blood - Peripheral Aerobic Blood Culture - Preliminary No growth in 3 days 01/27/18 12:35 Blood - Peripheral Anaerobic Blood Culture - Preliminary No growth in 3 days 01/27/18 12:30 Blood - Peripheral Aerobic Blood Culture - Preliminary No growth in 3 days 01/27/18 12:30 Blood - Peripheral Anaerobic Blood Culture - Preliminary No growth in 3 days 01/25/18 21:38 Blood - Peripheral Aerobic Blood Culture - Final No growth in 5 days 01/25/18 21:38 Blood - Peripheral Anaerobic Blood Culture - Final Staphylococcus epidermidis 01/25/18 21:30 Blood - Peripheral Aerobic Blood Culture - Final Staphylococcus coag negative 01/25/18 21:30 Blood - Peripheral Anaerobic Blood Culture - Final Staphylococcus epidermidis Assessment and Plan - Assessment (1) Spinal stenosis of lumbar region with neurogenic claudication Code(s): M48.062 - Spinal stenosis, lumbar region with neurogenic claudication Status: Chronic (2) Protrusion of lumbar intervertebral disc Code(s): M51.26 - Other intervertebral disc displacement, lumbar region Status : Chronic (3) Lumbar facet arthropathy Code(s): M47.816 - Spondylosis without myelopathy or radiculopathy, lumbar region Status: Chronic (4) Acute exacerbation of chronic low back pain Code(s): M54.5 - Low back pain; G89.29 - Other chronic pain Status: Acute (5) Fever Code(s): R50.9 - Fever, unspecified Status: Acute (6) SIRS (systemic inflammatory response syndrome) Code(s): R65.10 - Systemic inflammatory response syndrome (SIRS) of non- infectious origin without acute organ dysfunction Status: Acute (7) Intractable back pain Code(s): M54.9 - Dorsalgia, unspecified Status: Acute (8) H/O laminectomy Code(s): Z98.890 - Other specified postprocedural states Status: Acute (9) Bacteremia Code(s): R78.81 - Bacteremia Status: Acute - Plan 52-year-old male with a PMH of Chronic Back Pain, Anxiety, Depression and PTSD who presented to the ER with complaints of severe back pain starting on 2017. S/p Lumbar L4-L5 Laminectomy by Dr. Mercado on 01/17/18 for spinal stenosis , states he was doing well post-op until 01/26/2018 when he developed acute onset of severe back pain, states unable to walk due to symptoms. Pain is located in lumbar region, severe, 10/10, non-radiating, worse w/ movement. Denies injury or trauma. On arrival, BP 138/82, HR 101, O2 sat 97% on RA, Temp 101.9 CBC unremarkable. Lumbar spinal stenosis -s/p L4-L5 laminectomy -Neurosurgery following. MRI studies did not show any evidence of infection -Continue pain control. Staph Coag negative bacteremia -ID is following and recommends 10 days of abx. -Pending final blood cultures Full code. Ambulation Discussed Condition With: Patient, nursing, Dr. Miles Discharge Planning: Plan to discharge home with possible home health care, pending ID and neurosurgery clearance (5) Fever Qualifiers: Encounter type: initial encounter
[2018-01-30] MEDS: Vancomycin Inj 1,250 MG in Sodium Chlor 0.9% Inj 250 ML IV.SIG SCH (17:13)
[2018-01-30] MEDS: diazePAM 5 MG Tablet PO PRN (20:15)
[2018-01-30] MEDS: traZODone 100 MG Tablet PO SCH (20:16)
[2018-01-31] MEDS: Vancomycin Inj 1,250 MG in Sodium Chlor 0.9% Inj 250 ML IV.SIG SCH ×3 (02:50→17:16)
[2018-01-31] MEDS: Sod Chloride 0.9% Inj 1,000 ML IV.CONT SCH ×2 (04:56→12:44)
[2018-01-31 05:34] LABS: Glomerular Filtration Rate Greater Than 89 mL/min (>89)
[2018-01-31] MEDS: Duloxetine 60 MG DR Capsule PO SCH ×2 (08:10→20:15)
[2018-01-31] MEDS: buPROPion 150 MG 12 HR Tablet PO SCH ×2 (08:10→20:17)
[2018-01-31] MEDS: Senna/Docusate Sodium 8.6/50 MG Tablet PO SCH ×2 (08:10→20:15)
[2018-01-31] MEDS: Baclofen 10 MG Tablet PO SCH ×3 (08:10→17:16)
[2018-01-31] MEDS: Gabapentin 300 MG Capsule PO SCH ×3 (08:10→17:16)
--- NOTE | 2018-01-31 10:50 | P.PNIM ---
Subjective Interval history: Follow up for back pain s/p laminectomy, staph bacteremia. Patient seen and examined today. Reports he is doing okay. A patient states back pain continues to come and go, rated 5-7. Relieved by pain medications, aggravated by excessive movement. Otherwise, denies any fevers, chills, nausea, vomiting, diarrhea. Denies shortness of breath or dyspnea, denies chest pain, palpitations. Physical Exam Vital signs: Vital Signs 01/30/18 12:00 01/30/18 13:31 01/30/18 16:00 Temperature 97.9 F 97.9 F Pulse Rate 82 93 H 98 H Respiratory Rate 20 20 Blood Pressure 146/92 H 145/89 H Pulse Oximetry 97 98 01/30/18 18:04 01/30/18 20:30 01/31/18 00:40 Temperature 97.4 F L 97.6 F Pulse Rate 103 H 79 80 Respiratory Rate 18 18 Blood Pressure 128/78 121/79 Pulse Oximetry 96 95 01/31/18 04:00 01/31/18 07:30 Temperature 97.7 F 97.4 F L Pulse Rate 68 80 Respiratory Rate 18 20 Blood Pressure 121/69 137/79 Pulse Oximetry 96 96 Intake & Output 01/30/18 01/31/18 01/31/18 18:59 06:59 18:59 Intake Total 2092.5 / 2092.5 362.5 / 362.5 1000 / 1000 Balance 2092.5 / 2092.5 362.5 / 362.5 1000 / 1000 Intake: IV 1612.5 / 1612.5 362.5 / 362.5 1000 / 1000 NS Inj 1,000 ML @ 100 mls/hr IV 1000 / 1000 1000 / 1000 .CONT .Q10H [facility] Rx#:[id number] Vancomycin Inj 1,000 MG In NS 250 / 250 Inj 250 ML @ 250 mls/hr IV.SIG Q8H [facility] Rx#:[id number] Vancomycin Inj 1,250 MG In NS 262.5 / 262.5 262.5 / 262.5 Inj 250 ML @ 262.5 mls/hr IV. SIG Q8H [facility] Rx#:[id number] Rocephin Inj 2,000 MG In NS Inj 100 / 100 100 / 100 100 ML @ 200 mls/hr IV.SIG Q12H [facility] Rx#:[id number] Oral 480 / 480 Other: Date of Last Bowel Movement 01/30/18 01/29/18 Narrative: GENERAL: This is a pleasant, well-nourished, well-developed patient, in no apparent distress. SKIN: Warm and dry. Steri-Strip lower mid back clean dry and intact. No erythema or edema in the surrounding areas HEENT: Normocephalic. Pupils equal round and reactive. Nose without bleeding. Airway patent. NECK: Trachea midline. CARDIOVASCULAR: Regular rate and rhythm without murmurs, gallops, or rubs. RESPIRATORY: Clear to auscultation. Breath sounds equal bilaterally. No wheezes , rales, or rhonchi. GASTROINTESTINAL: Abdomen soft, non-tender, nondistended. Bowel Sounds normoactive x4. MUSCULOSKELETAL: Extremities without clubbing, cyanosis, or edema. NEUROLOGICAL: Awake and alert. No focal neuro deficit. Moves all extremities. Normal speech. Results - Labs CBC & Chem 7: 01/28/18 06:25 01/31/18 04:27 Laboratory Results - last 24 hr 01/30/18 01/31/18 11:45 04:27 Creatinine 0.67 Estimated GFR Greater than 89 Vancomycin Trough 9.5 Microbiology 01/27/18 12:35 Blood - Peripheral Aerobic Blood Culture - Preliminary No growth in 3 days 01/27/18 12:35 Blood - Peripheral Anaerobic Blood Culture - Preliminary No growth in 3 days 01/27/18 12:30 Blood - Peripheral Aerobic Blood Culture - Preliminary No growth in 3 days 01/27/18 12:30 Blood - Peripheral Anaerobic Blood Culture - Preliminary No growth in 3 days 01/25/18 21:38 Blood - Peripheral Aerobic Blood Culture - Final No growth in 5 days 01/25/18 21:38 Blood - Peripheral Anaerobic Blood Culture - Final Staphylococcus epidermidis Assessment and Plan - Assessment (1) Spinal stenosis of lumbar region with neurogenic claudication Code(s): M48.062 - Spinal stenosis, lumbar region with neurogenic claudication Status: Chronic (2) Protrusion of lumbar intervertebral disc Code(s): M51.26 - Other intervertebral disc displacement, lumbar region Status : Chronic (3) Lumbar facet arthropathy Code(s): M47.816 - Spondylosis without myelopathy or radiculopathy, lumbar region Status: Chronic (4) Acute exacerbation of chronic low back pain Code(s): M54.5 - Low back pain; G89.29 - Other chronic pain Status: Acute (5) Fever Code(s): R50.9 - Fever, unspecified Status: Acute (6) SIRS (systemic inflammatory response syndrome) Code(s): R65.10 - Systemic inflammatory response syndrome (SIRS) of non- infectious origin without acute organ dysfunction Status: Acute (7) Intractable back pain Code(s): M54.9 - Dorsalgia, unspecified Status: Acute (8) H/O laminectomy Code(s): Z98.890 - Other specified postprocedural states Status: Acute (9) Bacteremia Code(s): R78.81 - Bacteremia Status: Acute - Plan 52-year-old male with a PMH of Chronic Back Pain, Anxiety, Depression and PTSD who presented to the ER with complaints of severe back pain starting on 2017. S/p Lumbar L4-L5 Laminectomy by Dr. Mercado on 01/17/18 for spinal stenosis , states he was doing well post-op until 01/26/2018 when he developed acute onset of severe back pain, states unable to walk due to symptoms. Pain is located in lumbar region, severe, 10/10, non-radiating, worse w/ movement. Denies injury or trauma. On arrival, BP 138/82, HR 101, O2 sat 97% on RA, Temp 101.9 CBC unremarkable. Lumbar spinal stenosis -s/p L4-L5 laminectomy -Neurosurgery following. MRI studies did not show any evidence of infection -Continue pain control. Staph Coag negative bacteremia -ID is following and recommends 10 days of abx. -Blood cultures no growth to date. Full code. Ambulation Discussed Condition With: Discussed with patient, nursing, Dr. Miles Discharge Planning: Plan to discharge home with home health care, IV Abx. (5) Fever Qualifiers: Encounter type: initial encounter
--- NOTE | 2018-01-31 15:05 | P.DCO ---
- Physical Therapy Order: Evaluate and treat - Home Health Nursing Order: Signs/symptoms of disease process, Nursing assessment with vital signs, IV medication administration - Case Management Consult Case Management Consult-Home Health: Yes - Certification I have seen patient Jonatan Torres on 01/31/18. My clinical findings support the need for the requested home health care services because: Limited mobility due to disease progression, Deconditioned with increased weakness, Impaired cognition/judgement I certify that my clinical findings support that this patient is homebound because: Unsteady gait/balance
--- NOTE | 2018-01-31 15:17 | P.DS ---
Date of admission: 01/26/18 01:18 Primary care physician: Brina Clarke Attending physician on discharge: Jonatan Miles Anticipated date of discharge: 01/31/18 Brief History from admission: This is a 52-year-old male with a PMH of Chronic Back Pain, Anxiety, Depression and PTSD who presented to the ER with complaints of severe back pain starting earlier today. S/p Lumbar L4-L5 Laminectomy by Dr. Mercado on 01/17/18 for spinal stenosis, states he was doing well post-op until earlier this afternoon when he developed acute onset of severe back pain, states unable to walk due to symptoms. Pain is located in lumbar region, severe, 10/10, non-radiating, worse w/ movement. Denies injury or trauma. On arrival, BP 138/82, HR 101, O2 sat 97% on RA, Temp 101.9 CBC unremarkable. Chemistry unremarkable except for BUN 20, GFR 78. UA negative. CT L-spine status post left laminectomy, small focus of air and laminectomy site, focal fluid collection not clearly seen, moderate narrowing of sac at L4-L5 secondary to diffuse disc bulge. CT T-spine negative. CXR with no acute findings. Dr. 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 S/p Jas in ER. Patient update on day of discharge: Follow up for back pain s/p laminectomy, staph bacteremia. Patient seen and examined today. Reports he is doing okay. A patient states back pain continues to come and go, rated 5-7. Relieved by pain medications, aggravated by excessive movement. Otherwise, denies any fevers, chills, nausea, vomiting, diarrhea. Denies shortness of breath or dyspnea, denies chest pain, palpitations. Patient states he is ready to be discharged home. DS: Diagnosis - Discharge Diagnosis (1) Spinal stenosis of lumbar region with neurogenic claudication Status: Chronic (2) Protrusion of lumbar intervertebral disc Status: Chronic (3) Lumbar facet arthropathy Status: Chronic (4) Acute exacerbation of chronic low back pain Status: Acute (5) Fever Status: Acute (6) SIRS (systemic inflammatory response syndrome) Status: Acute (7) Intractable back pain Status: Acute (8) H/O laminectomy Status: Acute (9) Bacteremia Status: Acute DS: Summary Hospital Course: 52-year-old male with a PMH of Chronic Back Pain, Anxiety, Depression and PTSD who presented to the ER with complaints of severe back pain starting on 2017. S/p Lumbar L4-L5 Laminectomy by Dr. Mercado on 01/17/18 for spinal stenosis , states he was doing well post-op until 01/26/2018 when he developed acute onset of severe back pain, states unable to walk due to symptoms. Pain is located in lumbar region, severe, 10/10, non-radiating, worse w/ movement. Denies injury or trauma. On arrival, BP 138/82, HR 101, O2 sat 97% on RA, Temp 101.9 CBC unremarkable. Patient has lumbar spinal stenosis, status post L4-L5 laminectomy by Dr. Wyman. MRI studies did not show any evidence of infection or abscess collection. Pain control has been continued, patient has been getting [place] 5/325. Blood cultures initially growing Staphylococcus epidermidis. Repeat blood cultures did not show any growth to date. Infectious disease has followed the patient and was placed on ceftriaxone and vancomycin. Plan for patient to go home with IV antibiotics vancomycin and will be calculated by infectious disease doctor. Patient will need to follow- up with his primary care provider, neurosurgeon, and [facility]. Patient has met maximal benefits of hospitalization. Clinically stable for discharge. Able to ambulate short distance. - Time Spent with Patient Total time spent providing and/or coordinating discharge services: Greater than 30 minutes - Quality: VTE Deep Vein Thrombosis/Pulmonary Embolism Present on Admission: No Exam Vital signs: Vital Signs 01/30/18 16:00 01/30/18 18:04 01/30/18 20:30 Temperature 97.9 F 97.4 F L Pulse Rate 98 H 103 H 79 Respiratory Rate 20 18 Blood Pressure 145/89 H 128/78 Pulse Oximetry 98 96 01/31/18 00:40 01/31/18 04:00 01/31/18 07:30 Temperature 97.6 F 97.7 F 97.4 F L Pulse Rate 80 68 80 Respiratory Rate 18 18 20 Blood Pressure 121/79 121/69 137/79 Pulse Oximetry 95 96 96 Intake & Output 01/30/18 01/31/18 01/31/18 18:59 06:59 18:59 Intake Total 2092.5 / 2092.5 362.5 / 362.5 1362.5 / 1362.5 Balance 2092.5 / 2092.5 362.5 / 362.5 1362.5 / 1362.5 Intake: IV 1612.5 / 1612.5 362.5 / 362.5 1362.5 / 1362.5 NS Inj 1,000 ML @ 100 mls/hr IV 1000 / 1000 1000 / 1000 .CONT .Q10H [facility] Rx#:[id number] Vancomycin Inj 1,000 MG In NS 250 / 250 Inj 250 ML @ 250 mls/hr IV.SIG Q8H [facility] Rx#:[id number] Vancomycin Inj 1,250 MG In NS 262.5 / 262.5 262.5 / 262.5 262.5 / 262.5 Inj 250 ML @ 262.5 mls/hr IV. SIG Q8H [facility] Rx#:[id number] Rocephin Inj 2,000 MG In NS Inj 100 / 100 100 / 100 100 / 100 100 ML @ 200 mls/hr IV.SIG Q12H [facility] Rx#:[id number] Oral 480 / 480 Other: Date of Last Bowel Movement 01/30/18 01/29/18 01/29/18 Narrative: GENERAL: This is a pleasant, well-nourished, well-developed patient, in no apparent distress. SKIN: Warm and dry. Steri-Strip lower mid back clean dry and intact. No erythema or edema in the surrounding areas HEENT: Normocephalic. Pupils equal round and reactive. Nose without bleeding. Airway patent. NECK: Trachea midline. CARDIOVASCULAR: Regular rate and rhythm without murmurs, gallops, or rubs. RESPIRATORY: Clear to auscultation. Breath sounds equal bilaterally. No wheezes , rales, or rhonchi. GASTROINTESTINAL: Abdomen soft, non-tender, nondistended. Bowel Sounds normoactive x4. MUSCULOSKELETAL: Extremities without clubbing, cyanosis, or edema. NEUROLOGICAL: Awake and alert. No focal neuro deficit. Moves all extremities. Normal speech. Results Procedures completed during hospitalization: None Labs on day of discharge: Labs from last 24 hours 01/31/18 04:27 Creatinine 0.67 Estimated GFR Greater than 89 Preliminary micro results at discharge 01/27/18 12:35 Aerobic Blood Culture - Preliminary Blood - Peripheral No growth in 4 days Anaerobic Blood Culture - Preliminary No growth in 4 days 12/17/18 12:30 Aerobic Blood Culture - Preliminary Blood - Peripheral No growth in 4 days Anaerobic Blood Culture - Preliminary No growth in 4 days - Impressions ITS Impressions Chest X-Ray 01/25/18 21:28 CONCLUSION: No acute cardiopulmonary disease. Lumbar Spine CT 01/25/18 21:31 CONCLUSION: 1. Status post left laminectomy at the L3-L4 level. There is a small focus of air in the laminectomy site. Focal fluid collection is not clearly seen. 2. Moderate narrowing of the sac the L4-L5 level secondary to diffuse disc bulge and facet and ligamentum flavum hypertrophy. 3. Transitional changes with sacralization of L5. Thoracic Spine CT 01/25/18 21:31 CONCLUSION: Negative thoracic spine CT examination. Lumbar Spine MRI 01/26/18 00:00 CONCLUSION: Moderate to severe thecal sac stenosis L4-5 and L5-S1 and neural foraminal compromise bilaterally. Focal fluid collection within the laminectomy site most likely sterile postsurgical change without definite signs of abscess at this time. Discharge Plan - Discharge Disposition Patient Disposition: /Home Health Service - Discharge Condition Condition: Stable - Discharge Order Discharge Orders: Discharge Order (Routine); Ordered 01/31/18 Ordered By: Le Figueroa Neurosurgery Clear for Discharge (Routine); Ordered 01/27/18 Ordered By: Arya Mercado ED Use Only Admit Order (Routine); Ordered 01/26/18 Ordered By: Gordo Medina - Physicians Team Primary Care Provider: Brina Clarke Attending Provider: Jonatan Miles Other Providers: Breezy Juarez MD ; Arya Mercado MD
--- NOTE | 2018-01-31 15:22 | P.DCO ---
Post Hospital Infusion Therapy - Infusion Therapy Location of Infusion Therapy: Home Health Care IV Infusion Order - Patient Information Patient Weight: 91.5 kg - Administer Medication Vancomycin Dose: 1.5 grams IV Directions: q 12 hours Stop Treatment: 02/06/18 - Additional Information Venous Access: PICC Line Additional Instructions: [x] Peripheral flush and dressing changes per protocol [x] Implanted port and central carton liner: * Implanted port: 10 ml Normal Saline followed by 5 ml Heparin 100 units/ml Heparin flush after each use and monthly to maintain. [] May leave port accessed during therapy. [] May leave peripheral site accessed for duration of therapy. [x] If patient has SOB or respiratory distress, check oxygen saturation. If less than 90% or clinical signs of respiratory distress, administer oxygen at 2 L/min. via nasal cannula and notify physician. [x] Anaphylaxis/Reaction orders: * Stop infusion. * Keep IV line open with saline flush. * Notify physician. * Monitor vital signs every 15 minutes until symptoms resolve. * Check Oxygen saturation; Oxygen at 2 L/min. via nasal cannula if less than 90% or clinical signs of respiratory distress. * Administer diphenhydramine (Benadryl) 25 mg IV STAT, (unless patient has received as pre-med). May repeat once, if necessary. * Solu-Cortef 250 mg IVP over 30-60 seconds, use 100 mg vials for each dissolution. * Epinephrine (1mg/1 ml) 0.3 mg subcutaneously or IVP now with any signs of respiratory distress. * Check with physician for new additional pre-med orders if patient is re- challenged or re-treated. [x] May remove PICC line when treatment complete, after confirming with Physician. [x] If the patient is admitted to the hospital, the ED, or transferred via [facility] , complete transfer form including medication reconciliation order sheet. Weekly Labs: CBC w/diff, Vancomycin Trough - Case Management Consult Case Management Consult-IVF: Yes - Patient Information Allergies No Known Allergies Allergy (Verified 01/25/18 21:27)
--- NOTE | 2018-01-31 15:27 | P.PNID ---
Subjective Remarks: Patient states that he feels better. Reports that he still has pain in the back approximately 5-7/10 scale. Sitting in the chair. Afebrile. Blood culture has staph epi. Repeat blood culture has no growth in 4 days. White blood cell count remains normal. This is a 52-year-old male who underwent a lumbar laminectomy for spinal stenosis on 01/17/2018. The patient reports onset of acute severe back pain to the point where he was unable to walk yesterday. He also notes having fever at home. He had temperature of 101.9. Temperature persisted yesterday. The patient was evaluated by Neurosurgery. Lumbar spine MRI shows [id number] thecal sac stenosis at the L4-L5 and L5-S1 and neural foraminal compromise bilaterally. Focal fluid collection within the laminectomy site, most likely postsurgical change without definite signs of abscess. Past Medical History: PAST MEDICAL HISTORY: Posttraumatic stress disorder, arthritis, anxiety disorder, spinal stenosis, history of diverticulitis of the colon. PAST SURGICAL HISTORY: History of colon resection, hand surgery, history of vasectomy, history of fusion of the cervical spine. Allergies/Adverse Reactions: Allergies No Known Allergies Allergy (Verified 01/25/18 21:27) Objective Vital Signs 01/30/18 16:00 01/30/18 18:04 01/30/18 20:30 Temperature 97.9 F 97.4 F L Pulse Rate 98 H 103 H 79 Respiratory Rate 20 18 Blood Pressure 145/89 H 128/78 Pulse Oximetry 98 96 01/31/18 00:40 01/31/18 04:00 01/31/18 07:30 Temperature 97.6 F 97.7 F 97.4 F L Pulse Rate 80 68 80 Respiratory Rate 18 18 20 Blood Pressure 121/79 121/69 137/79 Pulse Oximetry 95 96 96 Intake & Output 01/30/18 01/31/18 01/31/18 18:59 06:59 18:59 Intake Total 2092.5 / 2.5 362.5 / 362.5 1362.5 / 1362.5 Balance 2.5 / 2.5 362.5 / 362.5 1362.5 / 1362.5 Weight 91.5 kg Intake: IV 1612.5 / 1612.5 362.5 / 362.5 1362.5 / 1362.5 NS Inj 1,000 ML @ 100 mls/hr IV 1000 / 1000 1000 / 1000 .CONT .Q10H [facility] Rx#:[id number] Vancomycin Inj 1,000 MG In NS 250 / 250 Inj 250 ML @ 250 mls/hr IV.SIG Q8H [facility] Rx#:[id number] Vancomycin Inj 1,250 MG In NS 262.5 / 262.5 262.5 / 262.5 262.5 / 262.5 Inj 250 ML @ 262.5 mls/hr IV. SIG Q8H [facility] Rx#:[id number] Rocephin Inj 2,000 MG In NS Inj 100 / 100 100 / 100 100 / 100 100 ML @ 200 mls/hr IV.SIG Q12H [facility] Rx#:[id number] Oral 480 / 480 Other: Date of Last Bowel Movement 01/30/18 01/29/18 01/29/18 01/27/18 12:35 Blood - Peripheral Aerobic Blood Culture - Preliminary No growth in 4 days 01/27/18 12:35 Blood - Peripheral Anaerobic Blood Culture - Preliminary No growth in 4 days 01/27/18 12:30 Blood - Peripheral Aerobic Blood Culture - Preliminary No growth in 4 days 01/27/18 12:30 Blood - Peripheral Anaerobic Blood Culture - Preliminary No growth in 4 days 01/25/18 21:38 Blood - Peripheral Aerobic Blood Culture - Final No growth in 5 days 01/25/18 21:38 Blood - Peripheral Anaerobic Blood Culture - Final Staphylococcus epidermidis 01/25/18 21:30 Blood - Peripheral Aerobic Blood Culture - Final Staphylococcus coag negative 01/25/18 21:30 Blood - Peripheral Anaerobic Blood Culture - Final Staphylococcus epidermidis Lab - Chemistry Results 01/31/18 04:27 Creatinine 0.67 Estimated GFR Greater than 89 Imaging: ITS Impressions Chest X-Ray 01/25/18 21:28 CONCLUSION: No acute cardiopulmonary disease. Lumbar Spine CT 01/25/18 21:31 CONCLUSION: 1. Status post left laminectomy at the L3-L4 level. There is a small focus of air in the laminectomy site. Focal fluid collection is not clearly seen. 2. Moderate narrowing of the sac the L4-L5 level secondary to diffuse disc bulge and facet and ligamentum flavum hypertrophy. 3. Transitional changes with sacralization of L5. Thoracic Spine CT 01/25/18 21:31 CONCLUSION: Negative thoracic spine CT examination. Lumbar Spine MRI 01/26/18 00:00 CONCLUSION: Moderate to severe thecal sac stenosis L4-5 and L5-S1 and neural foraminal compromise bilaterally. Focal fluid collection within the laminectomy site most likely sterile postsurgical change without definite signs of abscess at this time. Physical Exam: PHYSICAL EXAMINATION: GENERAL: No acute distress. HEENT: The head is atraumatic. Extraocular movements grossly intact. Pupils reactive to light. No icterus. Oropharynx moist mucosa without lesion. NECK: Supple without adenopathy. LUNGS: Decreased breath sounds. HEART: Regular S1 and S2 without murmurs, rubs, or gallops. ABDOMEN: Bowel sounds present. Soft, nontender. BACK: No tenderness on palpation of the lumbar spine. Surgical incision has no visible erythema or drainage. EXTREMITIES: No clubbing, cyanosis, or edema. SKIN: No diffuse rash. NEUROLOGIC: No gross focal findings. PSYCHIATRIC: Calm and cooperative. Assessment and Plan - Plan IMPRESSION: 1. Bacteremia. Staph coag negative on blood culture. 2. The patient is status post laminectomy 10 days ago. Probably has a postoperative infection. 2. Sepsis indicated by positive blood culture along with fever. Probable surgical site source. RECOMMENDATIONS: 1. Continue vancomycin until 02/06/2018. Vancomycin 1500 mg IV every 12 hours. 2. Orders and lab follow-up written for IV antibiotics at home. 3. Discussed with primary attending. Okay to discharge patient when arrangements for antibiotics are made.
[2018-01-31] MEDS ORDERED: Pharmacy Ordered Lab Info OTHER ONE (17:45)
[2018-01-31] MEDS ORDERED: Heparin Central Flush 100 UNIT/ML 5 ML Vial IV.FLUSH PRN (19:08)
[2018-01-31] MEDS: traZODone 100 MG Tablet PO SCH (20:15)
[2018-02-01] MEDS: Sod Chloride 0.9% Inj 1,000 ML IV.CONT SCH ×2 (01:31→07:52)
[2018-02-01] MEDS ORDERED: Pharmacy Ordered Lab Info OTHER ONE (01:45)
[2018-02-01] MEDS: Vancomycin Inj 1,250 MG in Sodium Chlor 0.9% Inj 250 ML IV.SIG SCH ×2 (01:51→09:05)
[2018-02-01] MEDS: Baclofen 10 MG Tablet PO SCH (08:06)
[2018-02-01] MEDS: Gabapentin 300 MG Capsule PO SCH (08:06)
[2018-02-01] MEDS: Senna/Docusate Sodium 8.6/50 MG Tablet PO SCH (08:06)
[2018-02-01] MEDS: Duloxetine 60 MG DR Capsule PO SCH (08:06)
[2018-02-01] MEDS: buPROPion 150 MG 12 HR Tablet PO SCH (08:08)
[2018-02-01] MEDS ORDERED: Heparin Central Flush 100 UNIT/ML 5 ML Vial IV.FLUSH SCH (09:00)
--- NOTE | 2018-02-01 10:49 | P.PNIM ---
Subjective Interval history: Follow up for back pain s/p laminectomy, staph bacteremia. Patient seen and examined today. Reports he is doing well. States that he is waiting for the last dose of his antibiotic to finish that he can go home. at the bedside. Discussed extensively no alcohol use while using this antibiotic especially during the holidays. [facility] will deliver his medication today so he can take his first dose tonight at 6 PM. Patient's niece is going to administer to dose tonight at home, states that family is able to do it as she is a trained RN at the hospital. Verbalized understanding of all instructions. Denies pain and discomfort. Denies SOB/ dyspnea. Denies chest pain, palpitations, headaches, dizziness. Denies fevers, chills, n/v/d. Denies hematuria, dysuria. Physical Exam Vital signs: Vital Signs 01/31/18 20:00 02/01/18 00:40 02/01/18 04:30 Temperature 98.2 F 98 F 97.7 F Pulse Rate 80 86 78 Respiratory Rate 18 18 18 Blood Pressure 157/94 H 122/76 119/73 Pulse Oximetry 98 97 96 02/01/18 08:40 Temperature 97.8 F Pulse Rate 92 H Respiratory Rate 18 Blood Pressure 127/88 Pulse Oximetry 98 Intake & Output 01/31/18 02/01/18 02/01/18 18:59 06:59 18:59 Intake Total 4625.0 / 4625.0 262.5 / 262.5 262.5 / 262.5 Output Total 1200 / 1200 Balance 4625.0 / 4625.0 -937.5 / -937.5 262.5 / 262.5 Weight 91.5 kg 91.5 kg Intake: IV 2625.0 / 2625.0 262.5 / 262.5 262.5 / 262.5 NS Inj 1,000 ML @ 100 mls/hr IV 1999 / 1999 .CONT .Q10H [facility] Rx#:[id number] Vancomycin Inj 1,250 MG In NS 525.0 / 525.0 262.5 / 262.5 262.5 / 262.5 Inj 250 ML @ 262.5 mls/hr IV. SIG Q8H [facility] Rx#:[id number] Rocephin Inj 2,000 MG In NS Inj 100 / 100 100 ML @ 200 mls/hr IV.SIG Q12H [facility] Rx#:[id number] Oral 1999 Output: Urine 1200 / 1200 Other: Date of Last Bowel Movement 01/29/18 01/31/18 02/01/18 # Bowel Movements 1 Narrative: GENERAL: This is a pleasant, well-nourished, well-developed patient, in no apparent distress. SKIN: Warm and dry. Steri-Strip lower mid back clean dry and intact. No erythema or edema in the surrounding areas HEENT: Normocephalic. Pupils equal round and reactive. Nose without bleeding. Airway patent. NECK: Trachea midline. CARDIOVASCULAR: Regular rate and rhythm without murmurs, gallops, or rubs. RESPIRATORY: Clear to auscultation. Breath sounds equal bilaterally. No wheezes , rales, or rhonchi. GASTROINTESTINAL: Abdomen soft, non-tender, nondistended. Bowel Sounds normoactive x4. MUSCULOSKELETAL: Extremities without clubbing, cyanosis, or edema. NEUROLOGICAL: Awake and alert. No focal neuro deficit. Moves all extremities. Normal speech. Results - Labs CBC & Chem 7: 01/28/18 06:25 01/31/18 04:27 Laboratory Results - last 24 hr 02/01/18 01:40 Vancomycin Trough 18.3 H Microbiology 01/27/18 12:35 Blood - Peripheral Aerobic Blood Culture - Preliminary No growth in 4 days 01/27/18 12:35 Blood - Peripheral Anaerobic Blood Culture - Preliminary No growth in 4 days 01/27/18 12:30 Blood - Peripheral Aerobic Blood Culture - Preliminary No growth in 4 days 01/27/18 12:30 Blood - Peripheral Anaerobic Blood Culture - Preliminary No growth in 4 days - Procedures None Assessment and Plan - Assessment (1) Spinal stenosis of lumbar region with neurogenic claudication Code(s): M48.062 - Spinal stenosis, lumbar region with neurogenic claudication Status: Chronic (2) Protrusion of lumbar intervertebral disc Code(s): M51.26 - Other intervertebral disc displacement, lumbar region Status : Chronic (3) Lumbar facet arthropathy Code(s): M47.816 - Spondylosis without myelopathy or radiculopathy, lumbar region Status: Chronic (4) Acute exacerbation of chronic low back pain Code(s): M54.5 - Low back pain; G89.29 - Other chronic pain Status: Acute (5) Fever Code(s): R50.9 - Fever, unspecified Status: Acute (6) SIRS (systemic inflammatory response syndrome) Code(s): R65.10 - Systemic inflammatory response syndrome (SIRS) of non- infectious origin without acute organ dysfunction Status: Acute (7) Intractable back pain Code(s): M54.9 - Dorsalgia, unspecified Status: Acute (8) H/O laminectomy Code(s): Z98.890 - Other specified postprocedural states Status: Acute (9) Bacteremia Code(s): R78.81 - Bacteremia Status: Acute - Plan 52-year-old male with a PMH of Chronic Back Pain, Anxiety, Depression and PTSD who presented to the ER with complaints of severe back pain starting on 2017. S/p Lumbar L4-L5 Laminectomy by Dr. Mercado on 01/17/18 for spinal stenosis , states he was doing well post-op until 01/26/2018 when he developed acute onset of severe back pain, states unable to walk due to symptoms. Pain is located in lumbar region, severe, 10/10, non-radiating, worse w/ movement. Denies injury or trauma. On arrival, BP 138/82, HR 101, O2 sat 97% on RA, Temp 101.9 CBC unremarkable. Patient has lumbar spinal stenosis, status post L4-L5 laminectomy by Dr. Mercado. MRI studies did not show any evidence of infection or abscess collection. Pain control has been continued, patient has been getting Nebo 5/325. Blood cultures initially growing Staphylococcus epidermidis. Repeat blood cultures did not show any growth to date. Infectious disease has followed the patient and was placed on ceftriaxone and vancomycin. Patient to go home with IV antibiotics vancomycin per recommendations and instructions of infectious disease Dr. Juarez. Patient will have his dose tonight. [facility] has been informed by case management and is confirmed delivery of antibiotics today. Patient will need to follow-up with his primary care provider, neurosurgeon, and [facility]. Patient has met maximal benefits of hospitalization. Clinically stable for discharge. Code Status: Full code Discussed Condition With: Patient, nursing, case management, Dr. Miles Discharge Planning: Discharge today home with home health care, IV Abx. (5) Fever Qualifiers: Encounter type: initial encounter
== END 2018-02-01 13:02 | disposition home health service (06) ==
LOC: NEPC 21:19 → NEDA 01-26 01:18 → NEPGCP 01-26 05:26 → N05 01-28 14:50
PROVIDERS: ADMIT Hospitalist; ATTEND Hospitalist
DX: M62.838 Other muscle spasm; Z90.49 Acquired absence of other specified parts of digestive tract; M54.5 Low back pain; M51.26 Other intervertebral disc displacement, lumbar region; R26.2 Difficulty in walking, not elsewhere classified; M47.816 Spondylosis without myelopathy or radiculopathy, lumbar region; Z98.1 Arthrodesis status; F43.10 Post-traumatic stress disorder, unspecified; F32.9 Major depressive disorder, single episode, unspecified; Z98.890 Other specified postprocedural states; M48.062 Spinal stenosis, lumbar region with neurogenic claudication; T81.40XA Infection following a procedure, unspecified, initial encounter; R00.0 Tachycardia, unspecified; R50.9 Fever, unspecified; R79.82 Elevated C-reactive protein (CRP); G89.29 Other chronic pain; A41.1 Sepsis due to other specified staphylococcus

== ENCOUNTER 2018-02-14 15:22 | Inpatient (IN) ==
[2018-02-14] MEDS ORDERED: HYDROmorphone PF Inj 2 MG/ML Vial IV.PUSH ONE ×3 (15:53→18:55)
[2018-02-14] MEDS ORDERED: Sod Chloride 0.9% Inj 1,000 ML IV.SIG ONE (15:53)
--- NOTE | 2018-02-14 16:12 | ED ---
HPI General Chief Complaint: Back Pain/Injury Stated Complaint: Back Pain Time Seen by Provider: 02/14/18 15:49 Source: patient Mode of arrival: EMS Limitations: no limitations History of Present Illness HPI Narrative: 52-year-old male with PMH of spinal stenosis status post laminectomy by Dr. Mercado on 01/17/18 presents the ED for evaluation of 8/10 low back pain. Pain is aching, worsened by certain motions. No changes in the pain since the surgery. Patient denies fever, chills, nausea, vomiting. He states that he has been minimally ambulatory" mostly in bed lying on my side." He states that "I feel like my legs will not hold me." Despite this he has been ambulatory to the restroom and around his house. He denies saddle anesthesia or urinary/fecal incontinence. He states that his postoperative course was complicated by possible infection. He states that he had 7 days of IV vancomycin and Zosyn at home which ended on02/06. [facility] Related Data Home Medications Medication Instructions Recorded Confirmed baclofen 10 mg PO TID PRN 01/06/18 02/14/18 duloxetine [Cymbalta] 60 mg PO BID 01/06/18 02/14/18 gabapentin 300 mg PO TID 01/06/18 02/14/18 meloxicam 15 mg PO DAILY 01/06/18 02/14/18 trazodone 100 mg PO DAILY 01/06/18 02/14/18 bupropion HCl 300 mg PO QAM 01/25/18 02/14/18 oxycodone-acetaminophen 1 tab PO Q6H PRN 02/14/18 02/14/18 Previous Rx's Medication Instructions Recorded sennosides-docusate sodium [Senna 1 tab PO BID #60 tab 01/31/18 Plus] Allergies Allergy/AdvReac Type Severity Reaction Status Date / Time No Known Allergies Allergy Verified 02/14/18 15:51 Review of Systems ROS: all other systems reviewed are negative [facility] Medical History Medical History Anxiety (Acute) Arthritis (Acute) Back pain (Acute) Bone spur (Acute) Depression (Acute) Herniated disc (Acute) History of diverticulitis of colon (Acute) Joint pain (Acute) Neck pain (Acute) PTSD (post-traumatic stress disorder) (Acute) Spinal stenosis (Acute) Wears glasses (Acute) Surgical History Surgical History History of biopsy (Acute) History of colon resection (Acute) History of hand surgery (Acute) History of laminectomy (Acute) History of vasectomy (Acute) Hx of LASIK (Acute) Hx of fusion of cervical spine (Acute) Social History Social History Substance History: No History of Abuse Second Hand Smoke Exposure: No Smoking Status: Former smoker Tobacco Type: Cigarettes How Often Do You Have a Drink Containing Alcohol: Never Recent Travel in [facility] within the Last 8 Weeks: No Recent Out of Country Travel within the Last 8 Weeks: No Immunization History Tetanus Immunization: Unsure Exam Narrative Exam Narrative: GENERAL: Well-nourished, well-developed, nontoxic-appearing male in no acute distress. SKIN: Focused skin assessment warm/dry. Well-healing midline surgical scar in the lumbar area without tenderness, fluctuance, warmth, discharge, erythema. HEAD: Atraumatic. Normocephalic. EYES: Pupils equal and round. No scleral icterus. No injection or drainage. ENT: No nasal bleeding or discharge. Mucous membranes pink and moist. NECK: Trachea midline. No JVD. CARDIOVASCULAR: Regular rate and rhythm. No murmur appreciated. RESPIRATORY: No accessory muscle use. Clear to auscultation. Breath sounds equal bilaterally. GASTROINTESTINAL: Abdomen soft, non-tender, nondistended. Hepatic and splenic margins not palpable. MUSCULOSKELETAL: No obvious deformities. No clubbing. No cyanosis. No edema. Equal strength inall muscle groups of the bilateral lower extremities. 5/5 great toe flexion bilaterally. NEUROLOGICAL: Awake and alert. No obvious cranial nerve deficits. Motor grossly within normal limits. Normal speech. PSYCHIATRIC: Appropriate mood and affect; insight and judgment normal. Course Initial Documented Vital Signs Temperature 99 F 02/14/18 15:50 Pulse Rate 84 02/14/18 15:50 Respiratory Rate 18 02/14/18 15:50 Blood Pressure 144/79 H 02/14/18 15:50 Pulse Oximetry 96 02/14/18 15:50 Last Documented Vital Signs Temperature 99 F 02/14/18 15:50 Pulse Rate 78 02/14/18 18:44 Respiratory Rate 16 02/14/18 18:44 Blood Pressure 142/79 H 02/14/18 18:44 Pulse Oximetry 98 02/14/18 18:44 Medical Decision Making MDM Narrative Medical decision making narrative: 52-year-old male with PMH of spinal stenosis s/p laminectomy by Dr. Mercado on 01/17/18 presents the ED for evaluation of 8/10 low back pain. Pain is aching, worsened by certain motions. No changes in the pain since the surgery. He states that "I feel like my legs will not hold me." Despite this he has been ambulatory to the restroom and around his house. He denies saddle anesthesia or urinary/fecal incontinence. He states that his postoperative course was complicated by possible infection. He states that he had 10 days of IV vancomycin at home with home health which ended on02/06. [facility] Patient is afebrile, hypertensive on presentation. On physical exam there are no focal neuro deficits. The surgical scar is well- healed and without signs of infection. IV was established. Patient was administered 1 mg Dilaudid, 1 L normal saline. CBC with WBC 7.9, hemoglobin 13.0. CMP with mild elevation of the BUN, elevation of the LFTs, new since . UA with no evidence of UTI. During MRI evaluation patient began experiencing more pain was administered another 0.5 mg Dilaudid. MRI spine reveals L4-5 new marrow edema and marrow enhancement soft tissue along the anterior thecal sac and left lateral recess resulting in slightly more thecal sac compromise and on prior exam. Rim enhancement around the fluid collection in the laminectomy defect is slightly greater although the maximal size of the fluid collection is similar to the prior exam. Findings are concerning for developing osteomyelitis and discitis at L4-5 given the new marrow enhancement and slight increase in T2 signal at the disc interspace. I attempted to call Dr. Mercado with the MRI results. The unit controller was informed by the answering service that "Dr. Mercado does not take calls on his patients after 5 PM." I spoke with the on-call neurosurgeon, Dr. Mixon. He recommends ESR, CRP, blood cultures and IV vancomycin. I reviewed the patient's previous blood cultures which grew staph epidermidis, resistant to penicillins. Patient was administered IV vancomycin. I spoke with Dr. Kirk who agrees to accept the patient to the the medicine service. Please see medicine and neurosurgery notes for disposition. Medical Screen Exam Complete: Yes Emergency Medical Condition: Yes Differential Diagnosis Differential Diagnosis: Postsurgical pain versus intractable pain versus abscess versus osteomyelitis versus less likely cauda equina syndrome versus other Lab Data Result diagrams: 02/14/18 16:15 02/14/18 16:15 Lab Results 02/14/18 02/14/18 02/14/18 Range/Units 16:15 16:15 16:16 WBC 7.9 (4.0-11.0) th/mm3 RBC 3.93 L (4.50-5.90) mil/mm3 Hgb 13.0 (13.0-17.0) gm/dL Hct 37.2 L (39.0-51.0) % MCV 94.8 (80.0-100.0) fL MCH 33.2 (27.0-34.0) pg MCHC 35.1 (32.0-36.0) % RDW 12.6 (11.6-17.2) % Plt Count 368 D (150-450) th/mm3 MPV 6.5 L (7.0-11.0) fL Neut % (Auto) 78.1 H (16.0-70.0) % Lymph % (Auto) 12.1 (9.0-44.0) % [place] % (Auto) 8.6 H (0.0-8.0) % Eos % (Auto) 0.8 (0.0-4.0) % Baso % (Auto) 0.4 (0.0-2.0) % Neut # (Auto) 6.2 (1.8-7.7) th/mm3 Lymph # (Auto) 1.0 (1.0-4.8) th/mm3 [place] # (Auto) 0.7 (0.0-0.9) th/mm3 Eos # (Auto) 0.1 (0.0-0.4) th/mm3 Baso # (Auto) 0.0 (0.0-0.2) th/mm3 WBC Differential . Differential Comment Auto diff final ESR (0-20) mm/hr Sodium 139 (136-145) meq/L Potassium 4.2 (3.5-5.1) meq/L Chloride 105 (98-107) meq/L Carbon Dioxide 27.2 (21.0-32.0) meq/L Anion Gap 7 (5-15) meq/L BUN 25 H (7-18) mg/dL Creatinine 0.86 (0.60-1.30) mg/dL Estimated GFR Greater than 89 (>89) mL/min Random Glucose 97 (74-106) mg/dL Calcium 8.8 (8.5-10.1) mg/dL Total Bilirubin 0.3 (0.2-1.0) mg/dL AST 81 H (15-37) U/L ALT 107 H (12-78) U/L Alkaline Phosphatase 174 H (45-117) U/L Total Protein 7.4 (6.4-8.2) g/dL Albumin 3.2 L (3.4-5.0) g/dL Urine Color Yellow (Yellw/Straw) Urine Clarity Clear (Clear) Urine pH 6.0 (5.0-8.5) Ur Specific [place] 1.026 (1.002-1.035) Urine Protein Negative (Neg-Trace) mg/dL Urine Glucose (UA) Negative (Negative) mg/dL Urine Ketones Trace H (Negative) mg/dL Urine Occult Blood Negative (Negative) Urine Nitrate Negative (Negative) Urine Bilirubin Negative (Negative) Urine Urobilinogen Less than 2 (Less than 2) mg/dL Ur Leukocyte Esterase Negative (Negative) Urine WBC 1 (0-5) /hpf Urine Mucus Few H (Occasional) /lpf Micro UA Comment Culture not ind Ur Microscopic Review Not Reportable Urine Culture Comments Culture not ind 02/14/18 Range/Units 19:55 WBC (4.0-11.0) th/mm3 RBC (4.50-5.90) mil/mm3 Hgb (13.0-17.0) gm/dL Hct (39.0-51.0) % MCV (80.0-100.0) fL MCH (27.0-34.0) pg MCHC (32.0-36.0) % RDW (11.6-17.2) % Plt Count (150-450) th/mm3 MPV (7.0-11.0) fL Neut % (Auto) (16.0-70.0) % Lymph % (Auto) (9.0-44.0) % [place] % (Auto) (0.0-8.0) % Eos % (Auto) (0.0-4.0) % Baso % (Auto) (0.0-2.0) % Neut # (Auto) (1.8-7.7) th/mm3 Lymph # (Auto) (1.0-4.8) th/mm3 [place] # (Auto) (0.0-0.9) th/mm3 Eos # (Auto) (0.0-0.4) th/mm3 Baso # (Auto) (0.0-0.2) th/mm3 WBC Differential Differential Comment ESR 58 H (0-20) mm/hr Sodium (136-145) meq/L Potassium (3.5-5.1) meq/L Chloride (98-107) meq/L Carbon Dioxide (21.0-32.0) meq/L Anion Gap (5-15) meq/L BUN (7-18) mg/dL Creatinine (0.60-1.30) mg/dL Estimated GFR (>89) mL/min Random Glucose (74-106) mg/dL Calcium (8.5-10.1) mg/dL Total Bilirubin (0.2-1.0) mg/dL AST (15-37) U/L ALT (12-78) U/L Alkaline Phosphatase (45-117) U/L Total Protein (6.4-8.2) g/dL Albumin (3.4-5.0) g/dL Urine Color (Yellw/Straw) Urine Clarity (Clear) Urine pH (5.0-8.5) Ur Specific [place] (1.002-1.035) Urine Protein (Neg-Trace) mg/dL Urine Glucose (UA) (Negative) mg/dL Urine Ketones (Negative) mg/dL Urine Occult Blood (Negative) Urine Nitrate (Negative) Urine Bilirubin (Negative) Urine Urobilinogen (Less than 2) mg/dL Ur Leukocyte Esterase (Negative) Urine WBC (0-5) /hpf Urine Mucus (Occasional) /lpf Micro UA Comment Ur Microscopic Review Urine Culture Comments Imaging Data Radiologist's impression: Lumbar Spine MRI 02/14/18 15:53 CONCLUSION: 1. At L4-5 there is some new marrow edema and marrow enhancement on both sides of the disc interspace with a increase in enhancing soft tissue along the anterior thecal sac and left lateral recess resulting in slightly more thecal sac compromise than on prior exam. Rim enhancement around the fluid collection in the laminectomy defect is slightly greater although the maximal size of the fluid collection is similar to the prior exam. Findings are concerning for developing osteomyelitis and discitis at L4-5 given the new marrow enhancement and slight increase in T2 signal at the disc interspace. Discharge Plan Discharge Disposition Patient Disposition: ED Admit(ED Internal Use Only) Discharge Condition Condition: Stable Discharge Order Discharge Orders: ED Use Only Admit Order (Routine); Ordered 02/14/18 Ordered By: Tamie Guadalupe Physicians Team ED Provider: Selvin Lubin ED Midlevel Provider: Tamie Guadalupe Primary Care Provider: Brina Clarke Attending Provider: Jennifer Kirk Discharge Interventions Interventions: Vital Signs Last Done: 02/14/18 18:44 Status ED Status: Admitted Observation Patient
[2018-02-14 16:26] LABS: Baso % (Auto) 0.4 % (0.0-2.0); Eos # (Auto) 0.1 th/mm3 (0.0-0.4); Eos % (Auto) 0.8 % (0.0-4.0); Hematocrit 37.2 % (39.0-51.0); Lymph % (Auto) 12.1 % (9.0-44.0); Mean Corpuscular HGB Conc 35.1 % (32.0-36.0); Mean Corpuscular Hemoglobin 33.2 pg (27.0-34.0); Mean Corpuscular Volume 94.8 fL (80.0-100.0); Mean Platelet Volume 6.5 fL (7.0-11.0); Mono # (Auto) 0.7 th/mm3 (0.0-0.9); Mono % (Auto) 8.6 % (0.0-8.0); Neut # (Auto) 6.2 th/mm3 (1.8-7.7); Neut % (Auto) 78.1 % (16.0-70.0); Platelet Count 368 th/mm3 (150-450); Red Blood Count 3.93 mil/mm3 (4.50-5.90); Red Cell Distribution Width 12.6 % (11.6-17.2); White Blood Count 7.9 th/mm3 (4.0-11.0)
[2018-02-14 16:35] LABS: Bilirubin,Urine Negative (Negative); Clarity,Urine Clear (Clear); Color,Urine Yellow (Yellw/Straw); Glucose,Urine (UA) Negative (Negative); Leukocyte Esterase,Urine Negative (Negative); Mucus,Urine Few /lpf (Occasional); Nitrite,Urine Negative (Negative); Specific Gravity,Urine 1.026 (1.002-1.035)
[2018-02-14 16:58] LABS: Alanine Aminotransferase 107 U/L (12-78); Albumin 3.2 g/dL (3.4-5.0); Anion Gap 7 meq/L (5-15); Aspartate Aminotransferase 81 U/L (15-37); Blood Urea Nitrogen 25 mg/dL (7-18); Calcium 8.8 mg/dL (8.5-10.1); Carbon Dioxide 27.2 meq/L (21.0-32.0); Chloride 105 meq/L (98-107); Glomerular Filtration Rate Greater Than 89 mL/min (>89); Glucose,Random 97 mg/dL (74-106); Potassium 4.2 meq/L (3.5-5.1); Sodium 139 meq/L (136-145)
[2018-02-14 17:00] LABS: Alkaline Phosphatase 174 U/L (45-117); Total Protein 7.4 g/dL (6.4-8.2)
[2018-02-14] MEDS ORDERED: Gadobutrol PF 10 MMOL/10 ML Vial (for RAD) IV.SIG ONE (18:10)
--- NOTE | 2018-02-14 19:15 | MR ---
EXAM DATE: 02/14/2018 6:34 PM EST AGE/SEX: 52 years / Male INDICATIONS: . Low back pain. CLINICAL DATA: This is the patient's initial encounter. Patient reports that signs and symptoms have been present for 3 weeks and indicates a pain score of 5/10. MEDICAL/SURGICAL HISTORY: Arthritis. Fusion, cervical. Discectomy, lumbar. Colon resection. COMPARISON: [facility] [place], MR LUMBAR SPINE W & W/O CONTRAST, 01/26/2018. . TECHNIQUE: Multiplanar, multisequence MRI examination of the lumbar spine was performed without and with 8 ml Gadavist (gadobutrol) contrast as a single exam dose. FINDINGS: At [id number] there is no significant abnormality. At L4-5 there is prior left-sided laminectomy. There is a rim-enhancing fluid collection that extends superficial and deep to the laminectomy defect over a cephalocaudad extent of about 4.1 cm and AP di mension and about 1.9 cm on the sagittal T1-weighted images which is similar to the prior measurement s. There is questionably slightly more rim enhancement posteriorly than on the prior examination. The re is slight worsening of thecal sac compromise with an enhancing area anteriorly that has increased in size. There is also some slight increase in T2 signal at the disc interspace and there is some new marrow edema and enhancement at the inferior aspect of L4 and superior aspect of L5. At L5-S1 there is a broad-based disc protrusion with mild foraminal stenosis similar to prior exam. CONCLUSION: 1. At L4-5 there is some new marrow edema and marrow enhancement on both sides of the disc interspac e with a increase in enhancing soft tissue along the anterior thecal sac and left lateral recess resu lting in slightly more thecal sac compromise than on prior exam. Rim enhancement around the fluid col lection in the laminectomy defect is slightly greater although the maximal size of the fluid collecti on is similar to the prior exam. Findings are concerning for developing osteomyelitis and discitis at L4-5 given the new marrow enhancement and slight increase in T2 signal at the disc interspace. Electronically signed by: Gordo Carrillo MD Board Certified Radiologist 02/14/2018 7:14 PM EST
[2018-02-14] MEDS ORDERED: Vancomycin Inj 1,500 MG in Sodium Chlor 0.9% Inj 500 ML IV.SIG ONE (19:44)
[2018-02-14] MEDS ORDERED: Acetaminophen 325 MG Tablet PO PRN (20:47)
[2018-02-14] MEDS ORDERED: Naloxone Inj 0.4 MG/ML Vial IV.PUSH PRN (20:47)
[2018-02-14] MEDS ORDERED: HYDROmorphone PF Inj 1 MG/ML Ampul IV.PUSH PRN (20:47)
[2018-02-14] MEDS ORDERED: Vancomycin Consult Pharmacy OTHER PRN (20:52)
--- NOTE | 2018-02-14 22:18 | P.CONNS ---
History of Present Illness Service: Neurosurgery Consult date: 02/14/18 Requesting Physician: Jennifer Kirk Reason for Consult: Postoperative infection Primary Care Provider: Brina Clarke Chief Complaint: low back pain History of Present Illness: I was asked by Dr. Kirk to see and evaluate this pleasant 52-year-old male with PMH of spinal stenosis status post laminectomy by Dr. Mercado on 01/17/18 He presents to the ED for evaluation of a progressive low back pain. He relates that the pain is aching, worsened by certain movement and that there have been no changes in the pain since his surgery. Patient denies fever, chills, nausea , vomiting. He denies saddle anesthesia or urinary/fecal incontinence. He states that his postoperative course was complicated by infection. He was admitted on 01/26 for similar complaints and weas found to have a post-op infection. He was treated in house for 7 days of IV vancomycin and Zosyn at home which ended on02/06. was called about his patient but his service has been instructed to tell the hospital, that he will not see patients in consult after 5PM.. Related Data Review of Systems All other systems reviewed negative except as stated in HPI PMFSH - History History Provided By: Patient - Medical History Medical History: Medical History (Last Reviewed 02/14/18 @ 22:17 by Artur Mixon MD) Anxiety Arthritis Back pain Bone spur Depression Herniated disc History of diverticulitis of colon Joint pain Neck pain PTSD (post-traumatic stress disorder) Spinal stenosis Wears glasses - Surgical History Surgical History: Surgical History (Last Reviewed 02/14/18 @ 22:17 by Artur Mixon MD) History of laminectomy History of biopsy History of colon resection History of hand surgery History of vasectomy Hx of LASIK Hx of fusion of cervical spine - Tobacco History Second Hand Smoke Exposure: No Smoking Status: Former smoker Tobacco Type: Cigarettes - Alcohol History How Often Do You Have a Drink Containing Alcohol: Never - Substance Use History Substance History: No History of Abuse - Travel History Recent Travel in the [place] Within the Last 8 Weeks: No Recent Travel Out of the Country Within the Last 8 Weeks: No - Immunization History Tetanus Immunization: Unsure Medications and Allergies Active Medications: Active Medications Acetaminophen (Tylenol) 650 mg PO Q4H PRN PRN Reason: Temp > 100.4 Hydromorphone HCl (Dilaudid Pf Inj) 1 mg IV.PUSH Q3H PRN PRN Reason: PAIN 6-10;IF UNABLE TO TAKE PO Naloxone HCl (Narcan Inj) 0.4 mg IV.PUSH UNSCH PRN PRN Reason: SEE LABEL COMMENTS Ondansetron HCl (Zofran Inj) 4 mg IV.PUSH Q6H PRN PRN Reason: NAUSEA OR VOMITING Oxycodone HCl (Roxicodone) 5 mg PO Q4H PRN PRN Reason: PAIN SCALE 3 TO 5 Pharmacy Profile Note (Vancomycin Consult Pharmacy) 1 each OTHER UNSCH PRN PRN Reason: Pharmacy to dose Sodium Chloride (Ns Flush) 2 ml IV.FLUSH BID STEFFANY Sodium Chloride (Ns Flush) 2 ml IV.FLUSH PRN PRN PRN Reason: FLUSH AFTER USING IV ACCESS Allergies Allergy/AdvReac Type Severity Reaction Status Date / Time No Known Allergies Allergy Verified 02/14/18 15:51 Home Medications Medication Instructions Recorded Confirmed Type baclofen 10 mg PO TID PRN 01/06/18 02/14/18 History duloxetine [Cymbalta] 60 mg PO BID 01/06/18 02/14/18 History gabapentin 300 mg PO TID 01/06/18 02/14/18 History meloxicam 15 mg PO DAILY 01/06/18 02/14/18 History trazodone 100 mg PO DAILY 01/06/18 02/14/18 History bupropion HCl 300 mg PO QAM 01/25/18 02/14/18 History oxycodone-acetaminophen 1 tab PO Q6H PRN 02/14/18 02/14/18 History Exam Vital signs: Vital Signs 02/14/18 15:50 02/14/18 16:10 02/14/18 18:44 Temperature 99 F Pulse Rate 84 80 78 Respiratory Rate 18 16 Blood Pressure 144/79 H 142/79 H Pulse Oximetry 96 98 98 Intake & Output 02/14/18 02/14/18 02/15/18 06:59 18:59 06:59 Intake Total 1000 / 1000 Balance 1000 / 1000 Weight 81.193 kg Intake: IV 1000 / 1000 NS Inj 1,000 ML @ Wide Open IV. 1000 / 1000 SIG BOLUS ONE Rx#:[id number] - Constitutional moderate distress, average body habitus, cooperative Comments: Severe low back pain - Routine HEENT Exam Head: Present: normocephalic, atraumatic Eye: Present: EOMI, PERRL, normal accommodation ENT: Present: mucous membranes moist, oropharynx clear, nares patent, external ear normal, TM's clear bilaterally - Routine Neck Exam Present: supple, full ROM, trachea midline - Routine Respiratory Exam Present: CTA bilaterally - Routine Cardiovascular Exam Present: RRR - Routine Abdominal Exam Present: soft, normoactive bowel sounds - Routine Extremities Exam Present: full ROM, pulses intact, normal capillary refill - Routine Skin Exam Present: intact, warm, normal turgor - Routine Neurological Exam Present: alert, oriented X3, CN II-XII intact, sensory deficit, normal reflexes , moving all extremities, normal tone, vision grossly intact, hearing grossly intact, normal speech Numbness in left L5 distribution which patient and his both state has been present since right after his surgery. - Detailed Neurological Exam: Coma Scale Verbal Response: Oriented Motor Response: Obey commands - Routine Psychiatric Exam Present: normal affect, normal thought process, cooperative Results - Laboratory Findings CBC and BMP: 02/14/18 16:15 02/14/18 16:15 Abnormal lab findings: Abnormal Labs 02/14/18 02/14/18 02/14/18 16:15 16:15 16:16 RBC 3.93 L Hct 37.2 L MPV 6.5 L Neut % (Auto) 78.1 H Charlotte % (Auto) 8.6 H ESR BUN 25 H AST 81 H ALT 107 H Alkaline Phosphatase 174 H C-Reactive Protein Albumin 3.2 L Urine Ketones Trace H Urine Mucus Few H 02/14/18 02/14/18 19:55 19:55 RBC Hct MPV Neut % (Auto) Charlotte % (Auto) ESR 58 H BUN AST ALT Alkaline Phosphatase C-Reactive Protein 3.50 H Albumin Urine Ketones Urine Mucus - Diagnostic Findings EKG: report reviewed, image reviewed Chest x-ray: report reviewed, image reviewed Abdominal x-ray: report reviewed, image reviewed CT scan - abdomen: report reviewed, image reviewed CT scan - chest: report reviewed, image reviewed CT scan - pelvic: report reviewed, image reviewed US - abdomen: report reviewed, image reviewed US - kidney: report reviewed, image reviewed US - pelvic: report reviewed, image reviewed Assessment and Plan - Plan The patient is status post laminectomy on 01/17/19. Re-admitted 0n 12/16 with a postoperative infection. 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 Admit for IV Abx. 2. Neuro checks q 4h 3 Would start on Vancomycin,Ceftriaxone and Flagyl 4 Monitor blood cultures. 5. Pain control No indication for Neurosurgical Intervention at this time, will follow.
[2018-02-14] MEDS ORDERED: Non-Formulary Drug (Bupropion Hcl [Bupropion Hcl] 300 MG) PO SCH (23:45)
--- NOTE | 2018-02-14 23:50 | P.HPIM ---
History of Present Illness Primary Care Physician: Brina Clarke Chief complaint: Severe back pain, fever History of presenting complaint: History from patient, ER physician communication, his at the bedside, and review of medical records. Patient is in acute severe pain at the time of my examination. Most of the history is provided by his at the bedside. Patient's reported that on January 17, patient had laminectomy done here at our hospital. This was done as an outpatient surgery. Then on January 26, 2018, patient was having severe pain in his back and could not walk because of this. He presented to emergency room at that time and he was admitted to hospital for 10 days and was found to have staph epidermidis bacteremia according to the records. He was then discharged on after about 7 days stay of hospitalization. He was sent home with 3 days course of IV vancomycin to be completed on February 06, 2018 for a total of 10 days duration treatment. Records from let hospitalization is reviewed. Patient and reported that during the time that he was receiving IV antibiotics, he was able to walk around the house. He did have some pain but not this severe. He was also running low-grade fever of 99 200. However the fever would easily come down with Motrin. He was also taking hydrocodone with acetaminophen. However the pain got worse after February 06 antibiotics completion. Over this past 10 days, the pain has been slowly progressing and worse yesterday with now some left lower extremity decreased sensation, with some trouble holding his urine. However denies any stool incontinence. Also reports of night sweats. Reports of shortness of breath but mainly secondary to these acute pain episodes. Past medical history: PTSD Anxiety/depression Past surgical history: Left wrist reconstructive surgery 2009 right breast biopsy Lasix surgery 2004 Partial colon resection for perforated diverticula in 2010 C-spine surgery Family history: His mother had diabetes. Father had heart disease. Social history: Denies smoking/alcohol abuse/drug abuse. Inpatient Certification Inpatient Certification: I certify that the inpatient services were ordered in accordance with Medicare regulations governing the order. This includes certification that hospital inpatient services are reasonable and necessary and in the case of services not specified as inpatient-only under 42 CFR 419.22(n), that they are appropriately provided as inpatient services in accordance to with the 2-midnight benchmark under 43 CFR 412.3(e) Estimated Total Length of Stay (Days): 3 Plans for Post Hospital Care: Not yet determined Review of Systems Review of Systems: all other systems reviewed are negative [facility] Medical History Medical History Anxiety (Acute) Arthritis (Acute) Back pain (Acute) Bone spur (Acute) Depression (Acute) Herniated disc (Acute) History of diverticulitis of colon (Acute) Joint pain (Acute) Neck pain (Acute) PTSD (post-traumatic stress disorder) (Acute) Spinal stenosis (Acute) Wears glasses (Acute) Surgical History Surgical History History of biopsy (Acute) History of colon resection (Acute) History of hand surgery (Acute) History of laminectomy (Acute) History of vasectomy (Acute) Hx of LASIK (Acute) Hx of fusion of cervical spine (Acute) Social History Social History Substance History: No History of Abuse Second Hand Smoke Exposure: No Smoking Status: Never smoker Tobacco Type: Cigars How Often Do You Have a Drink Containing Alcohol: Monthly or less Recent Travel in [place] within the Last 8 Weeks: No Recent Out of Country Travel within the Last 8 Weeks: No Immunization History Tetanus Immunization: Unsure Medications and Allergies Allergies Allergy/AdvReac Type Severity Reaction Status Date / Time No Known Allergies Allergy Verified 02/14/18 15:51 Home Medications Medication Instructions Recorded Confirmed Type baclofen 10 mg PO TID PRN 01/06/18 02/14/18 History duloxetine [Cymbalta] 60 mg PO BID 01/06/18 02/14/18 History gabapentin 300 mg PO TID 01/06/18 02/14/18 History meloxicam 15 mg PO DAILY 01/06/18 02/14/18 History trazodone 100 mg PO DAILY 01/06/18 02/14/18 History bupropion HCl 300 mg PO QAM 01/25/18 02/14/18 History oxycodone-acetaminophen 1 tab PO Q6H PRN 02/14/18 02/14/18 History Active Medications: Active Medications Acetaminophen (Tylenol) 650 mg PO Q4H PRN PRN Reason: Temp > 100.4 Baclofen (Lioresal) 10 mg PO TID PRN PRN Reason: Muscle Spasm Duloxetine HCl (Cymbalta) 60 mg PO BID STEFFANY Gabapentin (Neurontin) 300 mg PO TID STEFFANY Hydromorphone HCl (Dilaudid Pf Inj) 2 mg IV.PUSH Q3H PRN PRN Reason: PAIN 6-10;IF UNABLE TO TAKE PO Naloxone HCl (Narcan Inj) 0.4 mg IV.PUSH UNSCH PRN PRN Reason: SEE LABEL COMMENTS Non-Formulary Medication (Bupropion Hcl [Bupropion Hcl]) 300 mg PO QAM STEFFANY Ondansetron HCl (Zofran Inj) 4 mg IV.PUSH Q6H PRN PRN Reason: NAUSEA OR VOMITING Oxycodone HCl (Roxicodone) 5 mg PO Q4H PRN PRN Reason: PAIN SCALE 3 TO 5 Last Admin: 02/14/18 22:51 Dose: 5 mg Pharmacy Profile Note (Vancomycin Consult Pharmacy) 1 each OTHER UNSCH PRN PRN Reason: Pharmacy to dose Senna/Docusate Sodium (Mandie-Colace) 1 tab PO BID STEFFANY Sodium Chloride (Ns Flush) 2 ml IV.FLUSH BID STEFFANY Sodium Chloride (Ns Flush) 2 ml IV.FLUSH PRN PRN PRN Reason: FLUSH AFTER USING IV ACCESS Trazodone HCl (Desyrel) 100 mg PO HS [facility] Physical Exam Vital signs: Last Vital Signs Temp 99.3 F 02/14/18 23:07 Pulse 82 02/14/18 23:07 Resp 22 02/14/18 23:07 BP 172/90 H 02/14/18 23:07 Pulse Ox 99 02/14/18 23:07 Intake & Output 02/12/18 02/13/18 02/14/18 02/15/18 06:59 06:59 06:59 06:59 Intake Total 1000 / 1000 Balance 1000 / 1000 Weight 81.193 kg GENERAL: This is a well-nourished, well-developed patient, In severe distress from pain and anxiety CARDIOVASCULAR: Tachycardic, regular rhythm without murmurs, gallops, or rubs. RESPIRATORY: Clear to auscultation. Breath sounds equal bilaterally. No wheezes , rales, or rhonchi. GASTROINTESTINAL: Abdomen soft, non-tender, nondistended. Normal active bowel sounds MUSCULOSKELETAL: Extremities without clubbing, cyanosis, or edema. NEURO: Alert & Oriented x4 to person, place, time, situation. Moves all ext x4. However with severe pain on palpation of his lower lumbar spine area. Decreased sensation in the left lower extremity. However difficult exam as patient is extremely anxious and could not find a comfortable position. Mostly moaning. Results Labs CBC & Chem 7: 02/15/18 03:52 02/15/18 03:52 Imaging Impressions Lumbar Spine MRI 02/14/18 15:53 CONCLUSION: 1. At L4-5 there is some new marrow edema and marrow enhancement on both sides of the disc interspace with a increase in enhancing soft tissue along the anterior thecal sac and left lateral recess resulting in slightly more thecal sac compromise than on prior exam. Rim enhancement around the fluid collection in the laminectomy defect is slightly greater although the maximal size of the fluid collection is similar to the prior exam. Findings are concerning for developing osteomyelitis and discitis at L4-5 given the new marrow enhancement and slight increase in T2 signal at the disc interspace. Caprini VTE Risk Assessment Caprini VTE Risk Assessment: Moderate/High Risk (score >= 2) Caprini Risk Assessment Model: Point Value = 1 Point Value = 2 Point Value = 3 Point Value = 5 Age 41-60 Minor surgery BMI > 25 kg/m2 Swollen legs Varicose veins or History of unexplained or recurrent spontaneous Oral contraceptives or hormone replacement Sepsis (< 1 month) Serious lung disease, including pneumonia (< 1 month) Abnormal pulmonary function Acute myocardial infarction Congestive heart failure (< 1 month) History of inflammatory bowel disease Medical patient at bed rest Age 61-74 Arthroscopic surgery Major open surgery (> 45 min) Laparoscopic surgery (> 45 min) Malignancy Confined to bed (> 72 hours) Immobilizing plaster cast Central venous access Age >= 75 History of VTE Family history of VTE Factor V Leiden Prothrombin [id number] Lupus anticoagulant Anticardiolipin antibodies Elevated serum homocysteine Heparin-induced thrombocytopenia Other congenital or acquired thrombophilia Stroke (< 1 month) Elective arthroplasty Hip, pelvis, or leg fracture Acute spinal cord injury (< 1 month) Prophylaxis Regimen: Total Risk Factor Score Risk Level Prophylaxis Regimen 0-1 Low Early ambulation 2 Moderate Order ONE of the following: *Sequential Compression Device (SCD) *Heparin 5000 units SQ BID 3-4 Higher Order ONE of the following medications: *Heparin 5000 units SQ TID *Enoxaparin/Lovenox 40 mg SQ daily (WT < 150 kg, CrCl > 30 mL/min) *Enoxaparin/Lovenox 30 mg SQ daily (WT < 150 kg, CrCl > 10-29 mL/min) *Enoxaparin/Lovenox 30 mg SQ BID (WT < 150 kg, CrCl > 30 mL/min) AND/OR *Sequential Compression Device (SCD) 5 or more Highest Order ONE of the following medications: *Heparin 5000 units SQ TID (Preferred with Epidurals) *Enoxaparin/Lovenox 40 mg SQ daily (WT < 150 kg, CrCl > 30 mL/min) *Enoxaparin/Lovenox 30 mg SQ daily (WT < 150 kg, CrCl > 10-29 mL/min) *Enoxaparin/Lovenox 30 mg SQ BID (WT < 150 kg, CrCl > 30 mL/min) AND *Sequential Compression Device (SCD) Assessment and Plan Plan Impression: Intractable lumbar spine pain post operatively laminectomy Fever with recent history of staph epidermidis bacteremia MRI evidence of worsening discitis/possible osteomyelitis suspect ongoing recurrent bacteremia given fever and night sweats Plan: Neurosurgery was consulted in ER and has evaluated the patient at bedside. However patient's neurosurgeon Dr. Mercado is not available at this time. For now, advised for IV antibiotics. We will follow recommendations as to whether patient should undergo surgical intervention. Continue IV vancomycin per creatinine clearance and levels. Infectious disease consult. Resume home meds of PTSD/anxiety. Also pain control with Dilaudid 2 mg IV every 3 hours as needed. Nursing advised to keep close eye on patient's pain level and will use pain meds as needed in between for breakthrough. DVT prophylaxis with SCD.
[2018-02-14] MEDS: HYDROmorphone PF Inj 2 MG/ML Vial IV.PUSH PRN (23:57)
[2018-02-15] MEDS ORDERED: traZODone 100 MG Tablet PO ONE (00:45)
[2018-02-15] MEDS ORDERED: HYDROmorphone PF Inj 2 MG/ML Vial IV.PUSH ONE (01:21)
[2018-02-15 05:26] LABS: Baso % (Auto) 0.4 % (0.0-2.0); Eos % (Auto) 0.5 % (0.0-4.0); Hematocrit 37.6 % (39.0-51.0); Lymph # (Auto) 0.8 th/mm3 (1.0-4.8); Lymph % (Auto) 11.6 % (9.0-44.0); Mean Corpuscular HGB Conc 34.7 % (32.0-36.0); Mean Corpuscular Hemoglobin 33.3 pg (27.0-34.0); Mean Corpuscular Volume 95.8 fL (80.0-100.0); Mean Platelet Volume 6.9 fL (7.0-11.0); Mono # (Auto) 0.7 th/mm3 (0.0-0.9); Mono % (Auto) 10.1 % (0.0-8.0); Neut # (Auto) 5.2 th/mm3 (1.8-7.7); Neut % (Auto) 77.4 % (16.0-70.0); Platelet Count 367 th/mm3 (150-450); Red Blood Count 3.92 mil/mm3 (4.50-5.90); Red Cell Distribution Width 12.2 % (11.6-17.2); White Blood Count 6.8 th/mm3 (4.0-11.0)
[2018-02-15 05:41] LABS: Anion Gap 9 meq/L (5-15); Blood Urea Nitrogen 13 mg/dL (7-18); Calcium 8.8 mg/dL (8.5-10.1); Chloride 103 meq/L (98-107); Glomerular Filtration Rate Greater Than 89 mL/min (>89); Glucose,Random 102 mg/dL (74-106); Potassium 3.6 meq/L (3.5-5.1); Sodium 136 meq/L (136-145)
[2018-02-15] MEDS: HYDROmorphone PF Inj 2 MG/ML Vial IV.PUSH PRN ×5 (06:11→20:42)
[2018-02-15] MEDS: Gabapentin 300 MG Capsule PO SCH ×3 (09:23→17:34)
[2018-02-15] MEDS: Senna/Docusate Sodium 8.6/50 MG Tablet PO SCH ×2 (09:23→20:41)
[2018-02-15] MEDS: buPROPion 150 MG 12 HR Tablet PO SCH ×2 (09:23→20:41)
[2018-02-15] MEDS: Duloxetine 60 MG DR Capsule PO SCH ×2 (09:23→20:41)
--- NOTE | 2018-02-15 11:38 | P.PNIM ---
Subjective Interval history: Patient states he still has back pain, but is more comfortable after receiving pain medication. He is sleepy from the medication. Physical Exam Vital signs: Last Vital Signs Temp 99.5 F 02/15/18 08:00 Pulse 77 02/15/18 08:00 Resp 16 02/15/18 08:00 BP 167/87 H 02/15/18 08:00 Pulse Ox 95 02/15/18 08:00 Intake & Output 02/13/18 02/14/18 02/15/18 02/16/18 06:59 06:59 06:59 06:59 Intake Total 1515 / 1515 Balance 1515 / 1515 Weight 81.193 kg Narrative: GENERAL: AAOx3, no acute distress SKIN: Warm and dry. Surgical scar in lower abdomen HEAD: Atruamtic, normocephalic. EYES: No scleral icterus. No injection or drainage. ENT: Moist mucous membranes, patent nares, no erythema of oropharynx. NECK: Supple, trachea midline. No JVD or lymphadenopathy. Normal thyroid. CARDIOVASCULAR: Regular rate and rhythm. No murmurs, gallops, or rubs. RESPIRATORY: Breath sounds clear equal bilaterally. No crackles or wheezes. No accessory muscle use. GASTROINTESTINAL: Abdomen soft, non-tender, nondistended, normal active bowel sounds MUSCULOSKELETAL: No cyanosis, or edema. NEURO: CN II-XII grossly intact, no focal deficits, no slurring of speech Results Labs CBC & Chem 7: 02/15/18 03:52 02/15/18 03:52 Labs: Microbiology 02/14/18 19:55 Blood - Line Aerobic Blood Culture - Preliminary No growth in 1 day 02/14/18 19:55 Blood - Line Anaerobic Blood Culture - Preliminary No growth in 1 day 02/14/18 19:50 Blood - Line Aerobic Blood Culture - Preliminary No growth in 1 day 02/14/18 19:50 Blood - Line Anaerobic Blood Culture - Preliminary No growth in 1 day Imaging Imaging: Impressions Lumbar Spine MRI 02/14/18 15:53 CONCLUSION: 1. At L4-5 there is some new marrow edema and marrow enhancement on both sides of the disc interspace with a increase in enhancing soft tissue along the anterior thecal sac and left lateral recess resulting in slightly more thecal sac compromise than on prior exam. Rim enhancement around the fluid collection in the laminectomy defect is slightly greater although the maximal size of the fluid collection is similar to the prior exam. Findings are concerning for developing osteomyelitis and discitis at L4-5 given the new marrow enhancement and slight increase in T2 signal at the disc interspace. Assessment and Plan Plan 52-year-old male s/p laminectomy on 01/17/18. Re-admitted 0n 01/26 with a postoperative infection. Antibiotics ended on 02/06 and lower back pain has been gradually worsening since. Intractable lumbar pain MRI shows evidence of worsening discitis, possible osteomyelitis Neurosurgery recommends triple antibiotic coverage with vancomycin, ceftriaxone , Flagyl Following blood culture results No surgery is expected today Infectious diseases consulted Appreciate neurosurgery consult h/o PTSD/anxiety Continue Cymbalta and bupropion Pain management Patient is tolerating Dilaudid 2 mg IV every 3 hours, pain controlled, patient arousable DVT prophylaxis SCDs Progress Note: Quality VTE Deep Vein Thrombosis/Pulmonary Embolism Present on Admission: No
--- NOTE | 2018-02-15 11:41 | P.CONID ---
History of Present Illness Service: Infectious disease Consult date: 02/15/18 Requesting Physician: Alvarez Miles Reason for Consult: Evaluate patient with severe back pain, recent surgery Primary Care Provider: Brina Clarke Chief Complaint: low back pain History of Present Illness: Patient seen and examined. Records reviewed. Patient is a 52-year-old male, underwent surgery on January 17 and had laminectomy at L4-L5, presented to the hospital complaining of severe back pain. He was operated on and was seen same day procedure and discharge. He was readmitted to the hospital complaining of severe back pain and difficulty walking. He was in the hospital from January 26 - January 31. Imaging studies at that time showed some suggestion of postoperative infection around the laminectomy area. He had 2 blood cultures that had staph epidermidis at that time. Patient was discharged after his pain got better and completed IV vancomycin on February 06. According to the he was feeling better while on IV. However after he completed the course of treatment the pain started increasing again and he started having same problem as when he was admitted the first time. He had some low-grade fevers up to 99. He has not had any other problem as far as respiratory, GI or any urinary complaints. He has had problem on his left lower extremity and it was apparently present prior to the surgery, but has gotten a little bit worse after the surgery. That has really not changed. Since admission, highest temperature has been 99.3. WBC is normal. Sed rate is 58, C-reactive protein is 3.5. Imaging studies is now showing findings suggestive of discitis at L4-L5. The fluid collection seems to be about the same. Patient currently is on vancomycin, Rocephin, and Flagyl. Is still complaining of significant pain. Infectious disease consultation has been requested to assist with evaluation and treatment. Review of Systems Constitutional: Reports chills, Reports weakness, Denies fever(s), Denies headache(s) Eyes: Denies discharge, Denies dry eyes Ears, Nose, Mouth, and Throat: Denies difficulty swallowing, Denies nasal congestion, Denies nasal discharge, Denies pain with swallowing, Denies sore throat Cardiovascular: Denies chest pain, Denies shortness of breath Respiratory: Denies chest congestion, Denies cough, Denies shortness of breath Gastrointestinal: Denies abdominal pain, Denies constipation, Denies difficulty swallowing, Denies incontinent of stools, Denies loose stools, Denies nausea, Denies pain with swallowing, Denies vomiting Genitourinary: Denies difficulty urinating, Denies painful urination Musculoskeletal: Reports back pain, Denies joint pain, Denies joint swelling Skin/Breast: Denies rash, Denies sores, Denies wounds Neurologic: Denies tingling/numbness/burning sensations PMFSH - History History Provided By: Patient - Medical History Medical History: Medical History (Last Reviewed 02/15/18 @ 11:51 by Yamilet Phelan MD) Anxiety Arthritis Back pain Bone spur Depression Herniated disc History of diverticulitis of colon Joint pain Neck pain PTSD (post-traumatic stress disorder) Spinal stenosis Wears glasses - Surgical History Surgical History: Surgical History (Last Reviewed 02/15/18 @ 11:51 by Yamilet Phelan MD) History of laminectomy History of biopsy History of colon resection History of hand surgery History of vasectomy Hx of LASIK Hx of fusion of cervical spine - Tobacco History Second Hand Smoke Exposure: No Tobacco Use In Past 30 Days: No Smoking Status: Never smoker Tobacco Type: Cigars - Alcohol History How Often Do You Have a Drink Containing Alcohol: Monthly or less - Substance Use History Substance History: No History of Abuse - Travel History Recent Travel in the [place] Within the Last 8 Weeks: No Recent Travel Out of the Country Within the Last 8 Weeks: No - Immunization History Tetanus Immunization: Unsure Hx Influenza Vaccine This Season: Yes Medications and Allergies Active Medications: Active Medications Baclofen (Lioresal) 10 mg PO TID PRN PRN Reason: Muscle Spasm Bupropion HCl (Wellbutrin Sr) 150 mg PO BID [facility] Last Admin: 02/15/18 09:23 Dose: Not Given Duloxetine HCl (Cymbalta) 60 mg PO BID [facility] Last Admin: 02/15/18 09:23 Dose: 60 mg Gabapentin (Neurontin) 300 mg PO TID [facility] Last Admin: 02/15/18 09:23 Dose: 300 mg Hydromorphone HCl (Dilaudid Pf Inj) 2 mg IV.PUSH Q3H PRN PRN Reason: PAIN 6-10;IF UNABLE TO TAKE PO Last Admin: 02/15/18 09:22 Dose: 2 mg Vancomycin HCl 1,250 mg/ (Sodium Chloride) 262.5 mls @ 250 mls/hr IV.SIG Q8H [facility] Metronidazole/Sodium Chloride (Flagyl 500 Mg Inj) 100 mls @ 100 mls/hr IV.SIG Q8H [facility] Ceftriaxone Sodium 1,000 mg/ (Sodium Chloride) 100 mls @ 200 mls/hr IV.SIG Q24H [facility] Miscellaneous Information ([facility] Ordered Lab Info) 1 each OTHER ONCE ONE Stop: 02/16/18 01:46 Naloxone HCl (Narcan Inj) 0.4 mg IV.PUSH UNSCH PRN PRN Reason: SEE LABEL COMMENTS Ondansetron HCl (Zofran Inj) 4 mg IV.PUSH Q6H PRN PRN Reason: NAUSEA OR VOMITING Oxycodone HCl (Roxicodone) 5 mg PO Q4H PRN PRN Reason: PAIN SCALE 3 TO 5 Last Admin: 02/15/18 04:31 Dose: 5 mg Pharmacy Profile Note (Vancomycin Consult Pharmacy) 1 each OTHER UNSCH PRN PRN Reason: Pharmacy to dose Senna/Docusate Sodium (Mandie-Colace) 1 tab PO BID [facility] Last Admin: 02/15/18 09:23 Dose: 1 tab Sodium Chloride (Ns Flush) 2 ml IV.FLUSH BID [facility] Last Admin: 02/15/18 09:23 Dose: 2 ml Sodium Chloride (Ns Flush) 2 ml IV.FLUSH PRN PRN PRN Reason: FLUSH AFTER USING IV ACCESS Trazodone HCl (Desyrel) 100 mg PO [facility] Allergies Allergy/AdvReac Type Severity Reaction Status Date / Time No Known Allergies Allergy Verified 02/14/18 15:51 Home Medications Medication Instructions Recorded Confirmed Type baclofen 10 mg PO TID PRN 01/06/18 02/14/18 History duloxetine [Cymbalta] 60 mg PO BID 01/06/18 02/14/18 History gabapentin 300 mg PO TID 01/06/18 02/14/18 History meloxicam 15 mg PO DAILY 01/06/18 02/14/18 History trazodone 100 mg PO DAILY 01/06/18 02/14/18 History bupropion HCl 300 mg PO QAM 01/25/18 02/14/18 History oxycodone-acetaminophen 1 tab PO Q6H PRN 02/14/18 02/14/18 History Exam Vital signs: Vital Signs 02/14/18 15:50 02/14/18 16:10 02/14/18 18:44 Temperature 99 F Pulse Rate 84 80 78 Respiratory Rate 18 16 Blood Pressure 144/79 H 142/79 H Pulse Oximetry 96 98 98 02/14/18 23:07 02/15/18 02:09 02/15/18 03:03 Temperature 99.3 F Pulse Rate 82 92 H Respiratory Rate 22 18 16 Blood Pressure 172/90 H 167/100 H Pulse Oximetry 99 96 02/15/18 03:30 02/15/18 08:00 Temperature 98.8 F 99.5 F Pulse Rate 86 77 Respiratory Rate 20 16 Blood Pressure 146/85 H 167/87 H Pulse Oximetry 95 95 Intake & Output 02/14/18 02/15/18 02/15/18 18:59 06:59 18:59 Intake Total 1000 / 1000 515 / 515 Balance 1000 / 1000 515 / 515 Weight 81.193 kg 81.193 kg Intake: IV 1000 / 1000 515 / 515 NS Inj 1,000 ML @ Wide Open IV. 1000 / 1000 SIG BOLUS ONE Rx#:[id number] Vancomycin Inj 1,500 MG In NS 515 / 515 Inj 500 ML @ 250 mls/hr IV.SIG ONCE ONE Rx#:[id number] Other: Weight On Admission 81.193 kg Narrative: Physical examination GENERAL: Patient is a well-nourished, well-developed male, awake and alert, not in respiratory distress. SKIN: Cool and dry. No generalized rash, no ecchymoses and no evidence of embolic lesions. HEAD: Atraumatic. Normocephalic. No temporal wasting, or tenderness. EYES: [place] conjunctiva. No petechia or hemorrhage. Pupils equal, round and reactive to light. Extraocular movements full and intact. No scleral icterus. No injection or drainage. EARS, NOSE AND THROAT: Nose without bleeding or purulent nasal discharge. No sinus tenderness. Mucous membranes pink and moist. No oral lesions noted. No exudate. No oral thrush. NECK: Trachea midline. Supple and not tender, no meningeal signs CARDIOVASCULAR: Regular rate and rhythm. No murmurs, rubs or gallops heard RESPIRATORY: Clear to auscultation. Breath sounds equal bilaterally. No rales , wheezing or rhonchi ABDOMEN: Soft, non-tender, nondistended. Bowel sounds present and normoactive. No guarding. No rebound. No organomegaly. Scars c/w surgical history BACK: Healed incision in lower back EXTREMITIES: No clubbing, cyanosis, or edema. No joint effusion, has good ROM. No calf tenderness. Well perfused and warm. NEUROLOGICAL: Awake and alert. Cranial nerves grossly intact. Moving extremities PSYCHIATRIC: Normal affect, calm and cooperative. LINE: No evidence of infection Results - Labs CBC & Chem 7: 02/15/18 03:52 02/15/18 03:52 Labs: Laboratory Results - last 24 hr 02/14/18 02/14/18 02/14/18 16:15 16:15 16:16 WBC 7.9 RBC 3.93 L Hgb 13.0 Hct 37.2 L MCV 94.8 MCH 33.2 MCHC 35.1 RDW 12.6 Plt Count 368 D MPV 6.5 L Neut % (Auto) 78.1 H Lymph % (Auto) 12.1 [place] % (Auto) 8.6 H Eos % (Auto) 0.8 Baso % (Auto) 0.4 Neut # (Auto) 6.2 Lymph # (Auto) 1.0 [place] # (Auto) 0.7 Eos # (Auto) 0.1 Baso # (Auto) 0.0 WBC Differential . Differential Comment Auto diff final ESR Sodium 139 Potassium 4.2 Chloride 105 Carbon Dioxide 27.2 Anion Gap 7 BUN 25 H Creatinine 0.86 Estimated GFR Greater than 89 Random Glucose 97 Calcium 8.8 Total Bilirubin 0.3 AST 81 H ALT 107 H Alkaline Phosphatase 174 H C-Reactive Protein Total Protein 7.4 Albumin 3.2 L Urine Color Yellow Urine Clarity Clear Urine pH 6.0 Ur Specific [place] 1.026 Urine Protein Negative Urine Glucose (UA) Negative Urine Ketones Trace H Urine Occult Blood Negative Urine Nitrate Negative Urine Bilirubin Negative Urine Urobilinogen Less than 2 Ur Leukocyte Esterase Negative Urine WBC 1 Urine Mucus Few H Micro UA Comment Culture not ind Ur Microscopic Review Not Reportable Urine Culture Comments Culture not ind 02/14/18 02/14/18 02/15/18 19:55 19:55 03:52 WBC 6.8 RBC 3.92 L Hgb 13.0 Hct 37.6 L MCV 95.8 MCH 33.3 MCHC 34.7 RDW 12.2 Plt Count 367 MPV 6.9 L Neut % (Auto) 77.4 H Lymph % (Auto) 11.6 [place] % (Auto) 10.1 H Eos % (Auto) 0.5 Baso % (Auto) 0.4 Neut # (Auto) 5.2 Lymph # (Auto) 0.8 L [place] # (Auto) 0.7 Eos # (Auto) 0.0 Baso # (Auto) 0.0 WBC Differential . Differential Comment Auto diff final ESR 58 H Sodium Potassium Chloride Carbon Dioxide Anion Gap BUN Creatinine Estimated GFR Random Glucose Calcium Total Bilirubin AST ALT Alkaline Phosphatase C-Reactive Protein 3.50 H Total Protein Albumin Urine Color Urine Clarity Urine pH Ur Specific [place] Urine Protein Urine Glucose (UA) Urine Ketones Urine Occult Blood Urine Nitrate Urine Bilirubin Urine Urobilinogen Ur Leukocyte Esterase Urine WBC Urine Mucus Micro UA Comment Ur Microscopic Review Urine Culture Comments 02/15/18 03:52 WBC RBC Hgb Hct MCV MCH MCHC RDW Plt Count MPV Neut % (Auto) Lymph % (Auto) [place] % (Auto) Eos % (Auto) Baso % (Auto) Neut # (Auto) Lymph # (Auto) [place] # (Auto) Eos # (Auto) Baso # (Auto) WBC Differential Differential Comment ESR Sodium 136 Potassium 3.6 Chloride 103 Carbon Dioxide 24.0 Anion Gap 9 BUN 13 Creatinine 0.69 Estimated GFR Greater than 89 Random Glucose 102 Calcium 8.8 Total Bilirubin AST ALT Alkaline Phosphatase C-Reactive Protein Total Protein Albumin Urine Color Urine Clarity Urine pH Ur Specific [place] Urine Protein Urine Glucose (UA) Urine Ketones Urine Occult Blood Urine Nitrate Urine Bilirubin Urine Urobilinogen Ur Leukocyte Esterase Urine WBC Urine Mucus Micro UA Comment Ur Microscopic Review Urine Culture Comments - Imaging Impressions Lumbar Spine MRI 02/14/18 15:53 CONCLUSION: 1. At L4-5 there is some new marrow edema and marrow enhancement on both sides of the disc interspace with a increase in enhancing soft tissue along the anterior thecal sac and left lateral recess resulting in slightly more thecal sac compromise than on prior exam. Rim enhancement around the fluid collection in the laminectomy defect is slightly greater although the maximal size of the fluid collection is similar to the prior exam. Findings are concerning for developing osteomyelitis and discitis at L4-5 given the new marrow enhancement and slight increase in T2 signal at the disc interspace. Assessment and Plan - Plan Impression Progression of findings on MRI, with likely development of discitis/osteo L4L5 Fluid collection around laminectomy S/P laminectomy 01/17 2 BC 01/26 with Staph epidermidis, ?etiology of his back infection Recommendation D/W Dr Gipson - neurosurgery - will consult IR to sample the back and hopefully get the pathogen causing infection - results may be affected by the Abx that he is currently getting He is on Vanco, Rocephin and Flagyl Follow C/S and adjust Abx Monitor progress I will D/W Dr Juarez when he comes back on Saturday regarding assuming care from ID standpoint I will follow him along this weekend Thank you for this consultation
[2018-02-15] MEDS: Vancomycin Inj 1,250 MG in Sodium Chlor 0.9% Inj 250 ML IV.SIG SCH ×2 (12:41→18:07)
--- NOTE | 2018-02-15 13:34 | P.PNNS ---
Subjective Interval history: February 15, 2018 The patient has remained stable overnight. He still complaining of low back pain and sciatica. He is not complaining of any weakness or numbness in his lower extremities. Physical Exam Vital signs: Vital Signs 02/14/18 15:50 02/14/18 16:10 02/14/18 18:44 Temperature 99 F Pulse Rate 84 80 78 Respiratory Rate 18 16 Blood Pressure 144/79 H 142/79 H Pulse Oximetry 96 98 98 02/14/18 23:07 02/15/18 02:09 02/15/18 03:03 Temperature 99.3 F Pulse Rate 82 92 H Respiratory Rate 22 18 16 Blood Pressure 172/90 H 167/100 H Pulse Oximetry 99 96 02/15/18 03:30 02/15/18 08:00 02/15/18 12:00 Temperature 98.8 F 99.5 F 99.1 F Pulse Rate 86 77 85 Respiratory Rate 20 16 16 Blood Pressure 146/85 H 167/87 H 134/85 Pulse Oximetry 95 95 95 Intake & Output 02/14/18 02/15/18 02/15/18 18:59 06:59 18:59 Intake Total 1000 / 1000 515 / 515 Balance 1000 / 1000 515 / 515 Weight 81.193 kg 81.193 kg Intake: IV 1000 / 1000 515 / 515 NS Inj 1,000 ML @ Wide Open IV. 1000 / 1000 SIG BOLUS ONE Rx#:[id number] Vancomycin Inj 1,500 MG In NS 515 / 515 Inj 500 ML @ 250 mls/hr IV.SIG ONCE ONE Rx#:[id number] Other: Weight On Admission 81.193 kg - Routine Neurological Exam February 15, 2018 Patient is lying in bed as I enter the room. He is in no acute distress. He is somewhat uncomfortable. His sits next to him. On neurological examination, mental status testing finds him to be awake and alert. He is oriented by 3. Speech is fluent. Cognitive functions grossly intact. Cranial nerve testing 2 through 12 is grossly intact. There were no focal motor or neurosensory deficits. He is continent. Lumbar wound is clear and healed without swelling or tenderness. Assessment and Plan - Plan The patient is status post laminectomy on 01/17/19. Re-admitted 0n 01/26 with a postoperative infection. Briefly trested with IV Abx, now presents again with similar complaints and disease progression by L-spine MRI today CRP 3.5, ESR 58 Will need termite inspector antibiotic therapy to be monitored with weekely ESR and CRP and q 4-6 week L -spine MRI RECOMMENDATIONS: 1. Admit for IV Abx. 2. Neuro checks q 4h 3 Would start on Vancomycin,Ceftriaxone and Flagyl 4 Monitor blood cultures. 5. Pain control No indication for Neurosurgical Intervention at this time, will follow. February 15, 2018 The patient remained stable but appears to be suffering a postoperative lumbar wound infection. He has elevated serum inflammatory markers and a follow-up MRI scan of the lumbosacral spine performed with and without contrast suggest discitis and early osteomyelitis with a paraspinal abscess and epidural fluid collection. I discussed the case with the infectious disease edi consultant and felt it appropriate and we agreed that he should obtain a CT-guided needle aspiration biopsy and culture. This will be ordered. The patient requires prolonged broad-spectrum antibiotic treatment. From a neurosurgical perspective at this point a conservative approach is warranted with medical management. Neurosurgery will follow. It should be noted, that I discussed this all with patient and his at the bedside.
[2018-02-15 13:56] LABS: Activated Partial Thrombo Time 33.3 sec (23.4-31.7); INR 1.1 Ratio; Prothrombin Time 10.7 sec (9.8-11.6)
[2018-02-15] MEDS ORDERED: fentaNYL Citrate Inj 250 MCG/5 ML Ampul ONE (14:05)
--- NOTE | 2018-02-15 15:10 | P.RAD ---
Post CT Procedure Prog Note - Procedure Information Procedure Date: 02/15/18 Supervising Radiologist: Jose Carlos Mo MD Estimated blood loss (mL): 0 Anesthesia: Conscious Sedation - Plan of Activity Patient to Unit: Nursing Unit Patient condition: Good Additional Comments: No fluid can be aspirated. 20 guage disc biopsy at L4-5. Trace serosang fluid aspirated from post to laminectomy site See PACS Report for procedural detail/treatment.
[2018-02-15] MEDS: traZODone 100 MG Tablet PO SCH (20:41)
[2018-02-16] MEDS: HYDROmorphone PF Inj 2 MG/ML Vial IV.PUSH PRN ×2 (01:09→04:37)
[2018-02-16] MEDS ORDERED: Pharmacy Ordered Lab Info OTHER ONE (01:45)
[2018-02-16 02:29] LABS: Vancomycin,Trough 10.6 mcg/mL (5.0-10.0)
[2018-02-16] MEDS: Vancomycin Inj 1,250 MG in Sodium Chlor 0.9% Inj 250 ML IV.SIG SCH ×3 (02:40→17:32)
[2018-02-16 05:20] LABS: Glomerular Filtration Rate Greater Than 89 mL/min (>89)
[2018-02-16] MEDS: Baclofen 10 MG Tablet PO PRN ×2 (08:09→20:56)
[2018-02-16] MEDS: Gabapentin 300 MG Capsule PO SCH ×3 (09:27→17:32)
[2018-02-16] MEDS: Duloxetine 60 MG DR Capsule PO SCH ×2 (09:27→20:56)
[2018-02-16] MEDS: buPROPion 150 MG 12 HR Tablet PO SCH ×2 (09:27→20:57)
[2018-02-16] MEDS: Senna/Docusate Sodium 8.6/50 MG Tablet PO SCH ×2 (09:28→21:40)
--- NOTE | 2018-02-16 10:07 | P.PNIM ---
Subjective Interval history: Patient reports that his pain was well controlled until early this morning when he attempted to get up and had onset of low back pain that has been unrelieved with his current medications. Physical Exam Vital signs: Last Vital Signs Temp 99.2 F 02/16/18 07:37 Pulse 89 02/16/18 07:37 Resp 16 02/16/18 08:43 BP 131/87 02/16/18 07:37 Pulse Ox 97 02/16/18 07:37 Intake & Output 02/14/18 02/15/18 02/16/18 02/17/18 06:59 06:59 06:59 06:59 Intake Total 1515 / 1515 1425.0 / 1425.0 Output Total 350 / 350 Balance 1515 / 1515 1075.0 / 1075.0 Weight 81.193 kg Narrative: Physical examination GENERAL: Patient is a well-nourished, well-developed male, awake and alert, having some pain this morning SKIN: Cool and dry. No generalized rash, no ecchymoses and no evidence of embolic lesions. HEAD: Atraumatic. Normocephalic. No temporal wasting, or tenderness. EYES: No petechia or hemorrhage. Pupils equal, round and reactive to light. Extraocular movements full and intact. No scleral icterus. No injection or drainage. EARS, NOSE AND THROAT: Nose without bleeding or purulent nasal discharge. No sinus tenderness. Mucous membranes pink and moist. No oral lesions noted. No exudate. No oral thrush. NECK: Trachea midline. Supple and not tender, no meningeal signs CARDIOVASCULAR: Regular rate and rhythm. No murmurs, rubs or gallops heard RESPIRATORY: Clear to auscultation. Breath sounds equal bilaterally. No rales , wheezing or rhonchi ABDOMEN: Soft, non-tender, nondistended. Bowel sounds present and normoactive. No guarding. No rebound. No organomegaly. Scars c/w surgical history BACK: Healed incision in lower back EXTREMITIES: No clubbing, cyanosis, or edema. No joint effusion, has good ROM. No calf tenderness. Well perfused and warm. NEUROLOGICAL: Awake and alert. Cranial nerves grossly intact. Moving extremities PSYCHIATRIC: Normal affect, calm and cooperative. LINE: No evidence of infection Results Labs CBC & Chem 7: 02/15/18 03:52 02/16/18 03:47 Labs: Microbiology 02/15/18 15:30 Tissue - Back Gram Stain - Final 02/15/18 15:30 Fluid - Other Gram Stain - Final 02/14/18 19:55 Blood - Line Aerobic Blood Culture - Preliminary No growth in 1 day 02/14/18 19:55 Blood - Line Anaerobic Blood Culture - Preliminary gram positive cocci 02/14/18 19:50 Blood - Line Aerobic Blood Culture - Preliminary No growth in 1 day 02/14/18 19:50 Blood - Line Anaerobic Blood Culture - Preliminary No growth in 1 day Assessment and Plan Plan 52-year-old male s/p laminectomy on 01/17/18. Re-admitted 0n 01/26 with a postoperative infection. Antibiotics ended on 02/06 and lower back pain has been gradually worsening since. Intractable lumbar pain MRI shows evidence of worsening discitis, possible osteomyelitis Neurosurgery recommends triple antibiotic coverage with vancomycin, ceftriaxone , Flagyl Will address worsening pain with addition of Toradol for breakthrough Following blood culture results Appreciate infectious disease consult Appreciate neurosurgery consult h/o PTSD/anxiety Continue Cymbalta and bupropion Pain management Patient is tolerating Dilaudid 2 mg IV every 3 hours, pain controlled, patient arousable DVT prophylaxis SCDs Disposition Patient is awaiting a MedSur bed upstairs Progress Note: Quality VTE Deep Vein Thrombosis/Pulmonary Embolism Present on Admission: No
--- NOTE | 2018-02-16 11:06 | P.PNNS ---
Subjective Interval history: February 16, 2018 The patient has remained stable overnight. He still is complaining of low back pain and sciatica. Physical Exam Vital signs: Vital Signs 02/15/18 12:00 02/15/18 15:30 02/15/18 15:45 Temperature 99.1 F 97.6 F Pulse Rate 85 85 86 Respiratory Rate 16 18 20 Blood Pressure 134/85 123/83 124/84 Pulse Oximetry 95 94 L 95 02/15/18 15:53 02/15/18 16:00 02/15/18 16:15 Temperature Pulse Rate 83 77 Respiratory Rate 20 18 16 Blood Pressure 132/91 H 130/86 Pulse Oximetry 94 L 95 02/15/18 16:30 02/15/18 16:45 02/15/18 20:00 Temperature 97.8 F 98.1 F 98.9 F Pulse Rate 85 89 88 Respiratory Rate 16 16 20 Blood Pressure 125/77 130/81 155/98 H Pulse Oximetry 94 L 95 97 02/16/18 00:00 02/16/18 02:07 02/16/18 04:00 Temperature 100 F H 99.1 F Pulse Rate 96 H 96 H Respiratory Rate 20 16 20 Blood Pressure 133/82 121/82 Pulse Oximetry 96 96 02/16/18 07:37 02/16/18 08:43 Temperature 99.2 F Pulse Rate 89 Respiratory Rate 16 16 Blood Pressure 131/87 Pulse Oximetry 97 Intake & Output 02/15/18 02/16/18 02/16/18 18:59 06:59 18:59 Intake Total 100 / 100 1325.0 / 1325.0 Output Total 350 / 350 Balance 100 / 100 975.0 / 975.0 Intake: IV 100 / 100 825.0 / 825.0 Vancomycin Inj 1,250 MG In NS 525.0 / 525.0 Inj 250 ML @ 250 mls/hr IV.SIG Q8H [facility] Rx#:[id number] Rocephin Inj 1,000 MG In NS Inj 100 / 100 100 ML @ 200 mls/hr IV.SIG Q24H [facility] Rx#:[id number] Flagyl 500 MG Inj 100 ML @ 100 300 / 300 mls/hr IV.SIG Q8H STE[facility]ANY Rx#: [id number] Oral 500 / 500 Output: Urine 350 / 350 Other: # Voids 2 - Routine Neurological Exam February 16, 2018 The patient is sitting up in bed as I enter the room. He is complaining of back pain. On neurological examination, mental status testing finds him to be awake and alert. He is oriented by 3. Cognitive functions grossly intact. His speech is fluent. Cranial nerve testing 2 through 12 is grossly intact. There were no focal motor nor sensory deficits. There is no meningismus noted. The lumbar wound is clear. There is a dressing over the needle aspiration site. Assessment and Plan - Plan The patient is status post laminectomy on 01/17/19. Re-admitted 0n 01/26 with a postoperative infection. Briefly trested with IV Abx, now presents again with similar complaints and disease progression by L-spine MRI today CRP 3.5, ESR 58 Will need snf antibiotic therapy to be monitored with weekely ESR and CRP and q 4-6 week L -spine MRI RECOMMENDATIONS: 1. Admit for IV Abx. 2. Neuro checks q 4h 3 Would start on Vancomycin,Ceftriaxone and Flagyl 4 Monitor blood cultures. 5. Pain control No indication for Neurosurgical Intervention at this time, will follow. February 15, 2018 The patient remained stable but appears to be suffering a postoperative lumbar wound infection. He has elevated serum inflammatory markers and a follow-up MRI scan of the lumbosacral spine performed with and without contrast suggest discitis and early osteomyelitis with a paraspinal abscess and epidural fluid collection. I discussed the case with the infectious disease medical cost consultant and felt it appropriate and we agreed that he should obtain a CT-guided needle aspiration biopsy and culture. This will be ordered. The patient requires prolonged broad-spectrum antibiotic treatment. From a neurosurgical perspective at this point a conservative approach is warranted with medical management. Neurosurgery will follow. It should be noted, that I discussed this all with patient and his at the bedside. February 16, 2018 The patient is stable clinically and neurologically. The results of the CT- guided needle aspiration are pending but the Gram stain is negative. The cultures are pending. At this point I would continue the present management with antibiotics as per infectious disease. Neurosurgery will follow.
--- NOTE | 2018-02-16 12:54 | CT ---
EXAM DATE: 02/15/2018 5:06 PM EST AGE/SEX: 52 years / Male INDICATIONS: L4-L5 fluid collection. CLINICAL DATA: This is the patient's initial encounter. Patient reports that signs and symptoms have been present for 1 day and indicates a pain score of 5/10. MEDICAL/SURGICAL HISTORY: None. None. [place] [facility] [place]/O [place]AST[place]/14/2018. . BIOPSY SITE: L4-L5 MEDICATION(S): 2mg midazolam (Versed) IV 100mcg fentanyl (Sublimaze) IV DEVICE(S): 19 gauge Introducer FLUID: Total volume of of fluid was removed. Fluid was sent to lab for ordered studies.. . . PROCEDURE : CT guided drainage of the L4-L5. The risks, benefits and alternatives to the procedure were explained and verbal and written consent w as obtained. Using automated exposure control and adjustment of the mA and/or kV according to patient size, radiation dose was kept as low as reasonably achievable to obtain optimal diagnostic quality i mages. The site was prepped in sterile fashion. Full sterile technique was used, including cap, ma sk, sterile gloves and gown and a large sterile sheet. Hand hygiene and 2% chlorhexidine and/or beta dine/alcohol prep was utilized per protocol for cutaneous antisepsis. The skin and subcutaneous tiss ues were infiltrated with local anesthetic solution. DICOM format image data is available electronic ally for review and comparison. 2 separate lesions were targeted. 2 separate 19-gauge guide needles were advanced under careful CT gu idance 1 via a right parapedicular approach into the right aspect of the L4-5 disc space. The second image just left of midline approach to near the laminectomy bed. Multiple aspiration attempts yielded scant serosanguineous fluid from the laminectomy bed. This was submitted for Gram stain and C&S. Mul tiple aspiration attempts from the L4-5 disc space did not yield any fluid. Therefore, a 20-gauge cor e biopsy was obtained of the lateral disc/peridiscal tissues. This was submitted separately for Gram stain and C&S. The patient tolerated the procedure well and there were no complications. The patient tolerated the procedure well and there were no complications. The patient was sent to post anesthesia recovery in s table condition. CONCLUSION: 1. Uncomplicated CT guided aspiration of laminectomy bed soft tissues and 20-gauge core biopsy of L4 -5 disc space. Electronically signed by: Jose Carlos Mo MD Board Certified Radiologist 02/16/2018 12:53 PM EST
--- NOTE | 2018-02-16 12:54 | CT ---
EXAM DATE: 02/15/2018 4:37 PM EST AGE/SEX: 52 years / Male INDICATIONS: L4-L5 fluid collection. CLINICAL DATA: This is the patient's initial encounter. Patient reports that signs and symptoms have been present for 1 day and indicates a pain score of 4/10. MEDICAL/SURGICAL HISTORY: None. Colon resection. Fusion, cervical. Laminectomy COMPARISON: [facility] – [place] ASPIRATION, 02/15/2018. . BIOPSY SITE: L4-L5 MEDICATION(S): 2mg midazolam (Versed) IV 100mcg fentanyl (Sublimaze) IV DEVICE(S): 19 gauge Introducer FLUID: Total volume of of fluid was removed. Fluid was sent to lab for ordered studies.. . . PROCEDURE : CT guided drainage of the L4-L5. The risks, benefits and alternatives to the procedure were explained and verbal and written consent w as obtained. Using automated exposure control and adjustment of the mA and/or kV according to patient size, radiation dose was kept as low as reasonably achievable to obtain optimal diagnostic quality i mages. The site was prepped in sterile fashion. Full sterile technique was used, including cap, ma sk, sterile gloves and gown and a large sterile sheet. Hand hygiene and 2% chlorhexidine and/or beta dine/alcohol prep was utilized per protocol for cutaneous antisepsis. The skin and subcutaneous tiss ues were infiltrated with local anesthetic solution. DICOM format image data is available electronic ally for review and comparison. 2 separate lesions were targeted. 2 separate 19-gauge guide needles were advanced under careful CT gu idance 1 via a right parapedicular approach into the right aspect of the L4-5 disc space. The second image just left of midline approach to near the laminectomy bed. Multiple aspiration attempts yielded scant serosanguineous fluid from the laminectomy bed. This was submitted for Gram stain and C&S. Mul tiple aspiration attempts from the L4-5 disc space did not yield any fluid. Therefore, a 20-gauge cor e biopsy was obtained of the lateral disc/peridiscal tissues. This was submitted separately for Gram stain and C&S. The patient tolerated the procedure well and there were no complications. The patient tolerated the procedure well and there were no complications. The patient was sent to post anesthesia recovery in s table condition. CONCLUSION: 1. Uncomplicated CT guided aspiration of laminectomy bed soft tissues and 20-gauge core biopsy of L4 -5 disc space. Electronically signed by: Jose Carlos Mo MD Board Certified Radiologist 02/16/2018 12:53 PM EST
[2018-02-16] MEDS: Ketorolac Inj 30 MG/ML (IVP) Vial IV.PUSH PRN ×2 (12:55→20:57)
--- NOTE | 2018-02-16 16:27 | P.PNID ---
Subjective Remarks: Patient is a 52-year-old male, underwent surgery on January 17 and had laminectomy at L4-L5, presented to the hospital complaining of severe back pain. He was operated on and was seen same day procedure and discharge. He was readmitted to the hospital complaining of severe back pain and difficulty walking. He was in the hospital from January 26 - January 31. Imaging studies at that time showed some suggestion of postoperative infection around the laminectomy area. He had 2 blood cultures that had staph epidermidis at that time. Patient was discharged after his pain got better and completed IV vancomycin on February 06. According to the he was feeling better while on IV. However after he completed the course of treatment the pain started increasing again and he started having same problem as when he was admitted the first time. He had some low-grade fevers up to 99. He has not had any other problem as far as respiratory, GI or any urinary complaints. He has had problem on his left lower extremity and it was apparently present prior to the surgery, but has gotten a little bit worse after the surgery. That has really not changed. Since admission, highest temperature has been 99.3. WBC is normal. Sed rate is 58, C-reactive protein is 3.5. Imaging studies is now showing findings suggestive of discitis at L4-L5. The fluid collection seems to be about the same. Patient currently is on vancomycin, Rocephin, and Flagyl. Is still complaining of significant pain. Infectious disease consultation has been requested to assist with evaluation and treatment. Notes reviewed Back pain same BC now with Staph epi C/S back pending ESR 58 CRP 3.5 Antibiotics: Vanco Rocephin Flagyl Lines: PIV Past Medical History: Anxiety Arthritis Back pain Bone spur Depression Herniated disc History of diverticulitis of colon Joint pain Neck pain PTSD (post-traumatic stress disorder) Spinal stenosis History of laminectomy History of biopsy History of colon resection History of hand surgery History of vasectomy Hx of LASIK Hx of fusion of cervical spine Allergies/Adverse Reactions: Allergies No Known Allergies Allergy (Verified 02/14/18 15:51) Objective Vital Signs 02/15/18 16:30 02/15/18 16:45 02/15/18 20:00 Temperature 97.8 F 98.1 F 98.9 F Pulse Rate 85 89 88 Respiratory Rate 16 16 20 Blood Pressure 125/77 130/81 155/98 H Pulse Oximetry 94 L 95 97 02/16/18 00:00 02/16/18 02:07 02/16/18 04:00 Temperature 100 F H 99.1 F Pulse Rate 96 H 96 H Respiratory Rate 20 16 20 Blood Pressure 133/82 121/82 Pulse Oximetry 96 96 02/16/18 07:37 02/16/18 08:43 02/16/18 11:44 Temperature 99.2 F 98.7 F Pulse Rate 89 81 Respiratory Rate 16 16 16 Blood Pressure 131/87 137/76 Pulse Oximetry 97 95 02/16/18 16:00 Temperature 98.5 F Pulse Rate 87 Respiratory Rate 16 Blood Pressure 129/76 Pulse Oximetry 96 Intake & Output 02/15/18 02/16/18 02/16/18 18:59 06:59 18:59 Intake Total 100 / 100 1325.0 / 1325.0 462.5 / 462.5 Output Total 350 / 350 Balance 100 / 100 975.0 / 975.0 462.5 / 462.5 Intake: IV 100 / 100 825.0 / 825.0 462.5 / 462.5 Vancomycin Inj 1,250 MG In NS 525.0 / 525.0 262.5 / 262.5 Inj 250 ML @ 250 mls/hr IV.SIG Q8H STE[facility]ANY Rx#:[id number] Rocephin Inj 1,000 MG In NS Inj 100 / 100 100 / 100 100 ML @ 200 mls/hr IV.SIG Q24H [facility] Rx#:[id number] Flagyl 500 MG Inj 100 ML @ 100 300 / 300 100 / 100 mls/hr IV.SIG Q8H STEFFANY Rx#: [id number] Oral 500 / 500 Output: Urine 350 / 350 Other: # Voids 2 Date of Last Bowel Movement 02/16/18 02/15/18 15:30 Tissue - Back Gram Stain - Final 02/15/18 15:30 Tissue - Back Wound Culture - Preliminary No growth in 24 hours 02/15/18 15:30 Fluid - Other Gram Stain - Final 02/15/18 15:30 Fluid - Other Body Fluid Culture - Preliminary No growth in 24 hours 02/14/18 19:55 Blood - Line Aerobic Blood Culture - Preliminary No growth in 2 days 02/14/18 19:55 Blood - Line Anaerobic Blood Culture - Preliminary Staphylococcus epidermidis 02/14/18 19:50 Blood - Line Aerobic Blood Culture - Preliminary No growth in 2 days 02/14/18 19:50 Blood - Line Anaerobic Blood Culture - Preliminary gram positive cocci Lab - Hematology Results 02/14/18 02/14/18 02/15/18 16:15 19:55 03:52 WBC 7.9 6.8 RBC 3.93 L 3.92 L Hgb 13.0 13.0 Hct 37.2 L 37.6 L MCV 94.8 95.8 MCH 33.2 33.3 MCHC 35.1 34.7 RDW 12.6 12.2 Plt Count 368 D 367 MPV 6.5 L 6.9 L Neut % (Auto) 78.1 H 77.4 H Lymph % (Auto) 12.1 11.6 Pope % (Auto) 8.6 H 10.1 H Eos % (Auto) 0.8 0.5 Baso % (Auto) 0.4 0.4 Neut # (Auto) 6.2 5.2 Lymph # (Auto) 1.0 0.8 L Pope # (Auto) 0.7 0.7 Eos # (Auto) 0.1 0.0 Baso # (Auto) 0.0 0.0 WBC Differential . . Differential Comment Auto diff final Auto diff final ESR 58 H Lab - Chemistry Results 02/14/18 02/14/18 02/15/18 16:15 19:55 03:52 Sodium 139 136 Potassium 4.2 3.6 Chloride 105 103 Carbon Dioxide 27.2 24.0 Anion Gap 7 9 BUN 25 H 13 Creatinine 0.86 0.69 Estimated GFR Greater than 89 Greater than 89 Random Glucose 97 102 Calcium 8.8 8.8 Total Bilirubin 0.3 AST 81 H ALT 107 H Alkaline Phosphatase 174 H C-Reactive Protein 3.50 H Total Protein 7.4 Albumin 3.2 L 02/16/18 02/16/18 01:45 03:47 Sodium Potassium Chloride Carbon Dioxide Anion Gap BUN 17 Creatinine 0.77 Estimated GFR Greater than 89 Random Glucose Calcium Total Bilirubin AST ALT Alkaline Phosphatase C-Reactive Protein Total Protein Albumin Imaging: ITS Impressions Lumbar Spine MRI 02/14/18 15:53 CONCLUSION: 1. At L4-5 there is some new marrow edema and marrow enhancement on both sides of the disc interspace with a increase in enhancing soft tissue along the anterior thecal sac and left lateral recess resulting in slightly more thecal sac compromise than on prior exam. Rim enhancement around the fluid collection in the laminectomy defect is slightly greater although the maximal size of the fluid collection is similar to the prior exam. Findings are concerning for developing osteomyelitis and discitis at L4-5 given the new marrow enhancement and slight increase in T2 signal at the disc interspace. Needle Aspiration CT 02/15/18 12:53 CONCLUSION: 1. Uncomplicated CT guided aspiration of laminectomy bed soft tissues and 20- gauge core biopsy of L4-5 disc space. Physical Exam: GENERAL: awake and alert, not in respiratory distress. SKIN: Cool and dry. No generalized rash HEAD: Atraumatic. Normocephalic. No temporal wasting, or tenderness. EYES: [place] conjunctiva. No petechia or hemorrhage. No scleral icterus. No injection or drainage. EARS, NOSE AND THROAT: Mucous membranes pink and moist. No oral lesions noted. No exudate. No oral thrush. NECK: Trachea midline. Supple and not tender, no meningeal signs CARDIOVASCULAR: Regular rate and rhythm. No murmurs, rubs or gallops heard RESPIRATORY: Clear to auscultation. Breath sounds equal bilaterally. No rales , wheezing or rhonchi ABDOMEN: Soft, non-tender, nondistended. Bowel sounds present and normoactive. No guarding. No rebound. No organomegaly. Scars c/w surgical history BACK: Healed incision in lower back EXTREMITIES: No clubbing, cyanosis, or edema. No calf tenderness. Well perfused and warm. NEUROLOGICAL: Awake and alert. Cranial nerves grossly intact. Moving extremities PSYCHIATRIC: Normal affect, calm and cooperative. LINE: No evidence of infection Assessment and Plan - Plan Impression Progression of findings on MRI, with likely development of discitis/osteo L4L5 Fluid collection around laminectomy Recurrent Staph epi bacteremia, worrisome for IE, with seeding of back S/P laminectomy 01/17 Recommendation He is on Vanco, Rocephin and Flagyl Repeat BC Echo - may need ROBEL Follow C/S and adjust Abx Monitor progress I will D/W Dr Juarez when he comes back on Saturday regarding assuming care from ID standpoint Explained plan to patient and
[2018-02-16] MEDS: traZODone 100 MG Tablet PO SCH (21:01)
[2018-02-17] MEDS: Vancomycin Inj 1,250 MG in Sodium Chlor 0.9% Inj 250 ML IV.SIG SCH ×3 (02:55→17:55)
--- NOTE | 2018-02-17 09:42 | P.PNNS ---
Subjective Interval history: The patient has remained stable overnight. He still complaining of low back pain and sciatica. He is not complaining of any weakness or numbness in his lower extremities. Physical Exam Vital signs: Vital Signs 02/16/18 11:44 02/16/18 16:00 02/16/18 21:16 Temperature 98.7 F 98.5 F 98.9 F Pulse Rate 81 87 82 Respiratory Rate 16 16 16 Blood Pressure 137/76 129/76 158/95 H Pulse Oximetry 95 96 97 02/17/18 00:00 02/17/18 04:00 Temperature 98.7 F 98.2 F Pulse Rate 93 H 88 Respiratory Rate 18 16 Blood Pressure 146/83 H 137/78 Pulse Oximetry 95 97 Intake & Output 02/16/18 02/17/18 02/17/18 18:59 06:59 18:59 Intake Total 724.5 / 724.5 462 / 462 Balance 724.5 / 724.5 462 / 462 Intake: IV 724.5 / 724.5 462 / 462 Vancomycin Inj 1,250 MG In NS 524.5 / 524.5 262 / 262 Inj 250 ML @ 250 mls/hr IV.SIG Q8H [facility] Rx#:[id number] Rocephin Inj 1,000 MG In NS Inj 100 / 100 100 ML @ 200 mls/hr IV.SIG Q24H [facility] Rx#:[id number] Flagyl 500 MG Inj 100 ML @ 100 100 / 100 200 / 200 mls/hr IV.SIG Q8H [facility]ANY Rx#: [id number] Other: Date of Last Bowel Movement 02/16/18 02/16/18 Assessment and Plan - Plan The patient is status post laminectomy on 01/17/19. Re-admitted 0n 01/26 with a postoperative infection. Briefly trested with IV Abx, now presents again with similar complaints and disease progression by L-spine MRI today CRP 3.5, ESR 58 Will need medical terminologist antibiotic therapy to be monitored with weekely ESR and CRP and q 4-6 week L -spine MRI RECOMMENDATIONS: 1. Admit for IV Abx. 2. Neuro checks q 4h 3 Would start on Vancomycin,Ceftriaxone and Flagyl 4 Monitor blood cultures. 5. Pain control No indication for Neurosurgical Intervention at this time, will follow. February 15, 2018 The patient remained stable but appears to be suffering a postoperative lumbar wound infection. He has elevated serum inflammatory markers and a follow-up MRI scan of the lumbosacral spine performed with and without contrast suggest discitis and early osteomyelitis with a paraspinal abscess and epidural fluid collection. I discussed the case with the infectious disease customer service sales consultant and felt it appropriate and we agreed that he should obtain a CT-guided needle aspiration biopsy and culture. This will be ordered. The patient requires prolonged broad-spectrum antibiotic treatment. From a neurosurgical perspective at this point a conservative approach is warranted with medical management. Neurosurgery will follow. It should be noted, that I discussed this all with patient and his at the bedside. February 16, 2018 The patient is stable clinically and neurologically. The results of the CT- guided needle aspiration are pending but the Gram stain is negative. The cultures are pending. At this point I would continue the present management with antibiotics as per infectious disease. Neurosurgery will follow.
[2018-02-17] MEDS: Gabapentin 300 MG Capsule PO SCH ×3 (10:26→17:30)
[2018-02-17] MEDS: buPROPion 150 MG 12 HR Tablet PO SCH ×2 (10:26→21:46)
[2018-02-17] MEDS: Ketorolac Inj 30 MG/ML (IVP) Vial IV.PUSH PRN ×2 (10:26→17:29)
[2018-02-17] MEDS: Duloxetine 60 MG DR Capsule PO SCH ×2 (10:26→21:45)
[2018-02-17] MEDS: Senna/Docusate Sodium 8.6/50 MG Tablet PO SCH ×2 (10:27→21:45)
[2018-02-17] MEDS: Baclofen 10 MG Tablet PO PRN ×2 (10:48→17:30)
--- NOTE | 2018-02-17 12:12 | P.PNIM ---
Subjective Interval history: Patient has had overall improvement in his pain level since addition of Toradol yesterday. He was away at [place] this morning and returned later ready for a rest and requesting his a.m. pain meds. Physical Exam Vital signs: Last Vital Signs Temp 98.2 F 02/17/18 04:00 Pulse 88 02/17/18 04:00 Resp 16 02/17/18 04:00 BP 137/78 02/17/18 04:00 Pulse Ox 97 02/17/18 04:00 Intake & Output 02/15/18 02/16/18 02/17/18 02/18/18 06:59 06:59 06:59 06:59 Intake Total 1515 / 1515 1425.0 / 1425.0 1186.5 / 1186.5 262.5 / 262.5 Output Total 350 / 350 Balance 1515 / 1515 1075.0 / 1075.0 1186.5 / 1186.5 262.5 / 262.5 Weight 81.193 kg Narrative: GENERAL: AAOx3, no acute distress SKIN: Warm and dry. No rashes HEAD: [place], normocephalic. EYES: No scleral icterus. No injection or drainage. ENT: Moist mucous membranes, patent nares, no erythema of oropharynx. NECK: Supple, trachea midline. No JVD or lymphadenopathy. Normal thyroid. CARDIOVASCULAR: Regular rate and rhythm. No murmurs, gallops, or rubs. RESPIRATORY: Breath sounds clear equal bilaterally. No crackles or wheezes. No accessory muscle use. GASTROINTESTINAL: Abdomen soft, non-tender, nondistended, normal active bowel sounds MUSCULOSKELETAL: No cyanosis, or edema. Tenderness to palpation lower back, postsurgical scar NEURO: CN II-XII grossly intact, no focal deficits, no slurring of speech Results Labs CBC & Chem 7: 02/15/18 03:52 02/16/18 03:47 Labs: Microbiology 02/15/18 15:30 Fluid - Other Gram Stain - Final 02/15/18 15:30 Fluid - Other Body Fluid Culture - Preliminary No growth in 24 hours 02/16/18 19:03 Blood - Peripheral Aerobic Blood Culture - Preliminary No growth in 1 day 02/16/18 19:03 Blood - Peripheral Anaerobic Blood Culture - Preliminary No growth in 1 day 02/14/18 19:55 Blood - Line Aerobic Blood Culture - Preliminary No growth in 3 days 02/14/18 19:55 Blood - Line Anaerobic Blood Culture - Preliminary Staphylococcus epidermidis 02/14/18 19:50 Blood - Line Aerobic Blood Culture - Preliminary No growth in 3 days 02/14/18 19:50 Blood - Line Anaerobic Blood Culture - Preliminary gram positive cocci 02/15/18 15:30 Tissue - Back Gram Stain - Final 02/15/18 15:30 Tissue - Back Wound Culture - Preliminary No growth in 24 hours Imaging Imaging: Impressions Needle Aspiration CT 02/15/18 00:00 CONCLUSION: 1. Uncomplicated CT guided aspiration of laminectomy bed soft tissues and 20- gauge core biopsy of L4-5 disc space. [address]le Asp[address] 02/15/18 12:53 CONCLUSION: 1. Uncomplicated CT guided aspiration of laminectomy bed soft tissues and 20- gauge core biopsy of L4-5 disc space. Assessment and Plan Plan 52-year-old male s/p laminectomy on 01/17/18. Re-admitted 0n 01/26 with a postoperative infection. Antibiotics ended on 02/06 and lower back pain has been gradually worsening since. Intractable lumbar pain MRI shows evidence of worsening discitis, possible osteomyelitis Continuing triple antibiotic coverage with vancomycin, ceftriaxone, Flagyl Continue Toradol for breakthrough pain Following blood culture results Appreciate infectious disease consult Appreciate neurosurgery consult Discitis/osteomyelitis Continuing IV antibiotics Echocardiogram pending to rule out cardiac involvement Patient will be a candidate for home dose IV antibiotics Cultures pending to help guide antibiotic selection Appreciate infectious disease consult h/o PTSD/anxiety Continue Cymbalta and bupropion Pain management Patient is tolerating Dilaudid 2 mg IV every 3 hours, pain controlled, patient arousable DVT prophylaxis SCDs Disposition Patient is awaiting a MedSur bed upstairs Progress Note: Quality VTE Deep Vein Thrombosis/Pulmonary Embolism Present on Admission: No
[2018-02-17 13:56] LABS: Blood Urea Nitrogen 13 mg/dL (7-18); Glomerular Filtration Rate Greater Than 89 mL/min (>89)
--- NOTE | 2018-02-17 15:26 | P.PNID ---
Subjective Remarks: ID assumption of care. Patient known to me from prior admission. Notes reviewed. States that the back pain is improving. Blood culture has staph epi. Repeat blood culture is pending. Patient underwent aspiration of L4-L5. Patient is a 52-year-old male, underwent surgery on January 17 and had laminectomy at L4-L5, presented to the hospital complaining of severe back pain. He was operated on and was seen same day procedure and discharge. He was readmitted to the hospital complaining of severe back pain and difficulty walking. He was in the hospital from January 26 - January 31. Imaging studies at that time showed some suggestion of postoperative infection around the laminectomy area. He had 2 blood cultures that had staph epidermidis at that time. Patient was discharged after his pain got better and completed IV vancomycin on February 06. According to the he was feeling better while on IV. However after he completed the course of treatment the pain started increasing again and he started having same problem as when he was admitted the first time. He had some low-grade fevers up to 99. He has not had any other problem as far as respiratory, GI or any urinary complaints. He has had problem on his left lower extremity and it was apparently present prior to the surgery, but has gotten a little bit worse after the surgery. That has really not changed. Since admission, highest temperature has been 99.3. WBC is normal. Sed rate is 58, C-reactive protein is 3.5. Imaging studies is now showing findings suggestive of discitis at L4-L5. Infectious disease consultation has been requested to assist with evaluation and treatment. Antibiotics: Vanco Rocephin Flagyl Lines: PIV Past Medical History: Anxiety Arthritis Back pain Bone spur Depression Herniated disc History of diverticulitis of colon Joint pain Neck pain PTSD (post-traumatic stress disorder) Spinal stenosis History of laminectomy History of biopsy History of colon resection History of hand surgery History of vasectomy Hx of LASIK Hx of fusion of cervical spine Allergies/Adverse Reactions: Allergies No Known Allergies Allergy (Verified 02/14/18 15:51) Objective Vital Signs 02/16/18 16:00 02/16/18 21:16 02/17/18 00:00 Temperature 98.5 F 98.9 F 98.7 F Pulse Rate 87 82 93 H Respiratory Rate 16 16 18 Blood Pressure 129/76 158/95 H 146/83 H Pulse Oximetry 96 97 95 02/17/18 04:00 02/17/18 12:00 Temperature 98.2 F Pulse Rate 88 90 Respiratory Rate 16 16 Blood Pressure 137/78 139/96 H Pulse Oximetry 97 97 Intake & Output 02/16/18 02/17/18 02/17/18 18:59 06:59 18:59 Intake Total 724.5 / 724.5 462 / 462 462.5 / 462.5 Balance 724.5 / 724.5 462 / 462 462.5 / 462.5 Intake: IV 724.5 / 724.5 462 / 462 462.5 / 462.5 Vancomycin Inj 1,250 MG In NS 524.5 / 524.5 262 / 262 262.5 / 262.5 Inj 250 ML @ 250 mls/hr IV.SIG Q8H [facility] Rx#:[id number] Rocephin Inj 1,000 MG In NS Inj 100 / 100 100 / 100 100 ML @ 200 mls/hr IV.SIG Q24H [facility] Rx#:[id number] Flagyl 500 MG Inj 100 ML @ 100 100 / 100 200 / 200 100 / 100 mls/hr IV.SIG Q8H [facility] Rx#: [id number] Other: # Voids 1 Date of Last Bowel Movement 02/16/18 02/16/18 02/15/18 15:30 Tissue - Back Gram Stain - Final 02/15/18 15:30 Tissue - Back Wound Culture - Preliminary No growth in 48 hours 02/15/18 15:30 Fluid - Other Gram Stain - Final 02/15/18 15:30 Fluid - Other Body Fluid Culture - Preliminary No growth in 24 hours 02/16/18 19:03 Blood - Peripheral Aerobic Blood Culture - Preliminary No growth in 1 day 02/16/18 19:03 Blood - Peripheral Anaerobic Blood Culture - Preliminary No growth in 1 day 02/14/18 19:55 Blood - Line Aerobic Blood Culture - Preliminary No growth in 3 days 02/14/18 19:55 Blood - Line Anaerobic Blood Culture - Preliminary Staphylococcus epidermidis 02/14/18 19:50 Blood - Line Aerobic Blood Culture - Preliminary No growth in 3 days 02/14/18 19:50 Blood - Line Anaerobic Blood Culture - Preliminary gram positive cocci Lab - Chemistry Results 02/16/18 02/16/18 02/17/18 01:45 03:47 12:47 BUN 17 13 Creatinine 0.77 0.66 Estimated GFR Greater than 89 Greater than 89 Imaging: ITS Impressions Lumbar Spine MRI 02/14/18 15:53 CONCLUSION: 1. At L4-5 there is some new marrow edema and marrow enhancement on both sides of the disc interspace with a increase in enhancing soft tissue along the anterior thecal sac and left lateral recess resulting in slightly more thecal sac compromise than on prior exam. Rim enhancement around the fluid collection in the laminectomy defect is slightly greater although the maximal size of the fluid collection is similar to the prior exam. Findings are concerning for developing osteomyelitis and discitis at L4-5 given the new marrow enhancement and slight increase in T2 signal at the disc interspace. Needle Aspiration CT 02/15/18 12:53 CONCLUSION: 1. Uncomplicated CT guided aspiration of laminectomy bed soft tissues and 20- gauge core biopsy of L4-5 disc space. Physical Exam: GENERAL: Alert and oriented, no acute distress. HEENT: Pupils reactive to light. Extraocular movements intact. No icterus. Oropharynx has moist mucosa. No thrush. NECK: Supple without adenopathy. No swelling. LUNGS: Clear breath sounds bilateral. HEART: Regular S1 and S2. No audible murmurs or rubs or gallops. ABDOMEN: Bowel sounds present, soft, no tenderness appreciated. EXTREMITIES: No clubbing cyanosis or edema. SKIN: Rash at the nasolabial area. NEUROLOGIC: No gross focal finding. PSYCH: Calm and cooperative. Assessment and Plan - Plan Impression Progression of findings on MRI, with likely development of discitis/osteo L4L5 Fluid collection around laminectomy. That is post aspiration procedure today. Recurrent Staph epi bacteremia, worrisome for IE, with seeding of back S/P laminectomy 01/17 Recommendation Continue Vanco, Rocephin and Flagyl Follow repeat BC Monitor the 2D Echo -if significant findings apparent on the 2D echo we will proceed with ROBEL. Follow C/S and adjust Abx Monitor progress.
--- NOTE | 2018-02-17 18:46 | ECHRPT ---
Indication: Sepsis Possible Endocarditis CONCLUSIONS The left ventricular systolic function is normal with an estimated ejection fraction in the range of 55-60%. Doppler parameters are consistent with impaired left ventricular relaxtion (grade 1 diastolic dysfun ction). Mildly dilated proximal ascending aorta (4.18 cm). Trace mitral valve regurgitation. [id number]-[id number] aortic valve regurgitation. There is trace tricuspid valve regurgitation. BP: / HR: Rhythm: MEASUREMENTS (Male / Female) Normal Values Technical Quality:Fair 2D ECHO LV Diastolic Diameter PLAX 4.6 cm 4.2 - 5.9 / 3.9 - 5.3 cm LV Systolic Diameter PLAX 4.0 cm IVS Diastolic Thickness 1.0 cm 0.6 - 1.0 / 0.6 - 0.9 cm LVPW Diastolic Thickness 0.9 cm 0.6 - 1.0 / 0.6 - 0.9 cm LV Relative Wall Thickness 0.4 RV Internal Dim ED PLAX 3.0 cm LVOT Diameter 2.2 cm Aortic Root Diameter 3.4 cm LA Systolic Diameter LX 3.2 cm 3.0 - 4.0 / 2.7 - 3.8 cm M-MODE AV Cusp Separation MM 1.6 cm DOPPLER AV Peak Velocity 147.0 cm/s AV Peak Gradient 8.6 mmHg AI Peak Velocity 495.0 cm/s AI Peak Gradient 98.0 mmHg AI Pressure Half Time 498.0 ms LVOT Peak Velocity 93.3 cm/s LVOT Peak Gradient 3.5 mmHg AV Area Cont Eq pk 2.4 cm Mitral E Point Velocity 54.0 cm/s Mitral A Point Velocity 91.3 cm/s Mitral E to A Ratio 0.6 LV E' Lateral Velocity 5.5 cm/s Mitral E to LV E' Lateral Ratio 9.9 LV E' Septal Velocity 7.5 cm/s Mitral E to LV E' Septal Ratio 7.2 TR Peak Velocity 260.0 cm/s TR Peak Gradient 27.0 mmHg Right Atrial Pressure 10.0 mmHg Pulmonary Artery Systolic Pressu 37.0 mmHg Right Ventricular Systolic Press 37.0 mmHg PV Peak Velocity 85.5 cm/s PV Peak Gradient 2.9 mmHg FINDINGS LEFT VENTRICLE Normal left ventricular size. Wall thickness is normal. The left ventricular systolic function is normal with an estimated ejection fraction in the range of 55-60%. Doppler parameters are consistent with impaired left ventricular relaxtion (grade 1 diastolic dysfun ction). RIGHT VENTRICLE Normal right ventricular size and systolic function. LEFT ATRIUM The left atrial size is normal. RIGHT ATRIUM The right atrial size is normal. ATRIAL SEPTUM Normal atrial septal thickness without atrial level shunting by limited color doppler interrogation. AORTA Mildly dilated proximal ascending aorta (4.18 cm). MITRAL VALVE Structurally normal mitral valve. Trace mitral valve regurgitation. No mitral valve stenosis. AORTIC VALVE Probable trileaflet aortic valve. [id number] aortic valve regurgitation. No aortic valve stenosis. TRICUSPID VALVE Grossly normal There is trace tricuspid valve regurgitation. PULMONARY VALVE No pulmonary valve regurgitation or stenosis. VESSELS The inferior vena cava is normal in size. PERICARDIUM No pericardial effusion. Gilmar Garcia DO (Electronically Signed) Final Date:17 February 2018 18:45
[2018-02-17] MEDS: traZODone 100 MG Tablet PO SCH (21:45)
[2018-02-18] MEDS ORDERED: Pharmacy Ordered Lab Info OTHER ONE (01:45)
[2018-02-18] MEDS: Ketorolac Inj 30 MG/ML (IVP) Vial IV.PUSH PRN ×3 (02:24→18:19)
[2018-02-18] MEDS: Vancomycin Inj 1,250 MG in Sodium Chlor 0.9% Inj 250 ML IV.SIG SCH ×2 (02:25→11:18)
[2018-02-18 03:00] LABS: Blood Urea Nitrogen 13 mg/dL (7-18); Glomerular Filtration Rate Greater Than 89 mL/min (>89)
[2018-02-18] MEDS: buPROPion 150 MG 12 HR Tablet PO SCH ×2 (08:22→21:21)
[2018-02-18] MEDS: Gabapentin 300 MG Capsule PO SCH ×3 (08:22→18:19)
[2018-02-18] MEDS: Duloxetine 60 MG DR Capsule PO SCH ×2 (08:22→21:22)
[2018-02-18] MEDS: Senna/Docusate Sodium 8.6/50 MG Tablet PO SCH ×2 (08:23→21:21)
--- NOTE | 2018-02-18 09:08 | P.PNNS ---
Subjective Interval history: Pt awake and alert sitting on edge of bed. Pt states this is the first day he is feeling much better. He currently rates his pain as a 2/10. He denies any radiculopathy in LEs. He has some decreased sensation in the left lateral leg. Denies weakness in the LEs. <Sea Almanza - Last Filed: 02/18/18 08:37> Physical Exam Vital signs: Vital Signs 02/17/18 12:00 02/17/18 16:00 02/17/18 20:00 Temperature 98.1 F Pulse Rate 90 95 H 80 Respiratory Rate 16 16 18 Blood Pressure 139/96 H 151/90 H 164/86 H Pulse Oximetry 97 96 97 02/17/18 22:20 02/18/18 00:00 02/18/18 03:00 Temperature 98.0 F Pulse Rate 82 Respiratory Rate 18 16 16 Blood Pressure 115/65 Pulse Oximetry 95 02/18/18 03:51 02/18/18 08:08 Temperature 98.0 F 98.4 F Pulse Rate 78 77 Respiratory Rate 18 20 Blood Pressure 119/79 136/92 H Pulse Oximetry 97 93 L Intake & Output 02/17/18 02/18/18 02/18/18 18:59 06:59 18:59 Intake Total 462.5 / 462.5 725.0 / 725.0 Balance 462.5 / 462.5 725.0 / 725.0 Intake: IV 462.5 / 462.5 725.0 / 725.0 Vancomycin Inj 1,250 MG In NS 262.5 / 262.5 525.0 / 525.0 Inj 250 ML @ 250 mls/hr IV.SIG Q8H [facility] Rx#:[id number] Rocephin Inj 1,000 MG In NS Inj 100 / 100 100 ML @ 200 mls/hr IV.SIG Q24H [facility] Rx#:[id number] Flagyl 500 MG Inj 100 ML @ 100 100 / 100 200 / 200 mls/hr IV.SIG Q8H [facility] Rx#: [id number] Other: # Voids 1 Date of Last Bowel Movement 02/16/18 - Constitutional no acute distress, average body habitus, cooperative - Routine HEENT Exam Head: Present: normocephalic Eye: Present: PERRL. Absent: conjunctival icterus - Routine Respiratory Exam Present: CTA bilaterally. Absent: rhonchi, wheezes - Routine Cardiovascular Exam Present: RRR, S1, S2. Absent: murmur - Routine Abdominal Exam Present: soft, normoactive bowel sounds. Absent: distended - Routine Skin Exam Absent: cyanosis, erythema - Routine Neurological Exam Present: alert, sensory deficit (mild decreased sensation left lateral leg on exam.), moving all extremities, normal speech. Absent: motor deficit, altered mental status - Routine Psychiatric Exam Present: normal affect, cooperative <Sea Almanza - Last Filed: 02/18/18 08:37> Vital signs: Vital Signs 02/18/18 08:08 02/18/18 12:20 02/18/18 13:30 Temperature 98.4 F 98.2 F 98.5 F Pulse Rate 77 81 86 Respiratory Rate 20 20 17 Blood Pressure 136/92 H 138/86 149/92 H Pulse Oximetry 93 L 95 96 02/18/18 16:00 02/18/18 20:00 02/18/18 23:49 Temperature 98.1 F 98.4 F 97.9 F Pulse Rate 78 95 H 91 H Respiratory Rate 18 17 18 Blood Pressure 123/57 L 161/98 H 144/83 H Pulse Oximetry 100 96 94 L Intake & Output 02/18/18 02/19/18 02/19/18 18:59 06:59 18:59 Intake Total 1262.5 / 1262.5 Balance 1262.5 / 1262.5 Weight 81.193 kg Intake: IV 462.5 / 462.5 Cubicin Inj 700 MG In NS Inj 100 / 100 100 ML @ 200 mls/hr IV.SIG Q24H [facility] Rx#:[id number] Vancomycin Inj 1,250 MG In NS 262.5 / 262.5 Inj 250 ML @ 250 mls/hr IV.SIG Q8H [facility] Rx#:[id number] Rocephin Inj 1,000 MG In NS Inj 100 / 100 100 ML @ 200 mls/hr IV.SIG Q24H [facility] Rx#:[id number] Oral 800 / 800 Other: # Voids 2 Date of Last Bowel Movement 02/18/18 02/18/18 <Arya Mercado - Last Filed: 02/19/18 07:33> Assessment and Plan - Assessment (1) Spinal stenosis of lumbar region with neurogenic claudication Code(s): M48.062 - Spinal stenosis, lumbar region with neurogenic claudication Status: Chronic (2) Protrusion of lumbar intervertebral disc Code(s): M51.26 - Other intervertebral disc displacement, lumbar region Status : Chronic (3) Lumbar facet arthropathy Code(s): M47.816 - Spondylosis without myelopathy or radiculopathy, lumbar region Status: Chronic (4) Acute exacerbation of chronic low back pain Code(s): M54.5 - Low back pain; G89.29 - Other chronic pain Status: Acute (5) Fever Code(s): R50.9 - Fever, unspecified Status: Acute Qualifiers: Encounter type: initial encounter (6) SIRS (systemic inflammatory response syndrome) Code(s): R65.10 - Systemic inflammatory response syndrome (SIRS) of non- infectious origin without acute organ dysfunction Status: Acute (7) Intractable back pain Code(s): M54.9 - Dorsalgia, unspecified Status: Acute (8) H/O laminectomy Code(s): Z98.890 - Other specified postprocedural states Status: Acute - Plan A: 52 y/o M s/p lumbar laminectomy. He has bacteremia. Pt has developed low back pain and developed discitis at L4/L5. He is on IV antibiotics and starting to feel better with improvement in his low back pain. P: Continue with antibiotics Continue to ambulate. Pt will need PICC for oil heaterman antibiotics. No neurosurgical intervention needed currently. <Sea Almanza - Last Filed: 02/18/18 08:37> - Attending Attestation The exam, history, and the medical decision-making described in the above note were completed with the assistance of the mid-level provider. I reviewed and agree with the findings presented. I attest that I had a [id number]-[id number] encounter with the patient on the same day, and personally performed and documented my assessment and findings in the medical record. Overall relates that his back pain is much better. Also states that since his lumbar spine surgery a month ago his radicular/claudication symptoms have significantly improved. Cultures are growing out staph epidermidis and he is on vancomycin per infectious disease. I concur with 6-8 weeks of IV antibiotic with the sed rate checks every 2 weeks and follow-up MRI scan after completion of antibiotic course. Discharge home when arrangements made for home antibiotic infusion and follow-up in the office in 4-6weeks. Discussed with who is also in agreement. <Arya Mercado - Last Filed: 02/19/18 07:33>
--- NOTE | 2018-02-18 10:26 | P.PN ---
Subjective Interval history: Follow-up for discitis; patient seen and examined, indicates he feels better today, pain is a 2 on scale of 0-10. No nausea, no vomiting, no diarrhea, no rashes. Has a good appetite. Has been ambulating with walker. No acute changes overnight. No fever Physical Exam Vital signs: Vital Signs 02/17/18 12:00 02/17/18 16:00 02/17/18 20:00 Temperature 98.1 F Pulse Rate 90 95 H 80 Respiratory Rate 16 16 18 Blood Pressure 139/96 H 151/90 H 164/86 H Pulse Oximetry 97 96 97 02/17/18 22:20 02/18/18 00:00 02/18/18 03:00 Temperature 98.0 F Pulse Rate 82 Respiratory Rate 18 16 16 Blood Pressure 115/65 Pulse Oximetry 95 02/18/18 03:51 02/18/18 08:08 Temperature 98.0 F 98.4 F Pulse Rate 78 77 Respiratory Rate 18 20 Blood Pressure 119/79 136/92 H Pulse Oximetry 97 93 L Intake & Output 02/17/18 02/18/18 02/18/18 18:59 06:59 18:59 Intake Total 462.5 / 462.5 725.0 / 725.0 Balance 462.5 / 462.5 725.0 / 725.0 Intake: IV 462.5 / 462.5 725.0 / 725.0 Vancomycin Inj 1,250 MG In NS 262.5 / 262.5 525.0 / 525.0 Inj 250 ML @ 250 mls/hr IV.SIG Q8H [facility] Rx#:[id number] Rocephin Inj 1,000 MG In NS Inj 100 / 100 100 ML @ 200 mls/hr IV.SIG Q24H [facility] Rx#:[id number] Flagyl 500 MG Inj 100 ML @ 100 100 / 100 200 / 200 mls/hr IV.SIG Q8H [facility] Rx#: [id number] Other: # Voids 1 Date of Last Bowel Movement 02/16/18 Narrative: GENERAL: AAOx3, no acute distress SKIN: Warm and dry. No rashes HEAD: Atraumatic, normocephalic. EYES: No scleral icterus. No injection or drainage. ENT: Moist mucous membranes, patent nares, no erythema of oropharynx. NECK: Supple, trachea midline. No JVD or lymphadenopathy. Normal thyroid. CARDIOVASCULAR: Regular rate and rhythm. No murmurs, gallops, or rubs. RESPIRATORY: Breath sounds clear equal bilaterally. No crackles or wheezes. No accessory muscle use. GASTROINTESTINAL: Abdomen soft, non-tender, nondistended, normal active bowel sounds MUSCULOSKELETAL: No cyanosis, or edema. Tenderness to palpation lower back, postsurgical scar NEURO: CN II-XII grossly intact, no focal deficits, no slurring of speech Results - Labs CBC & Chem 7: 02/15/18 03:52 02/18/18 02:25 Laboratory Results - last 24 hr 02/17/18 02/18/18 02/18/18 12:47 02:25 02:25 BUN 13 13 Creatinine 0.66 0.76 Estimated GFR Greater than 89 Greater than 89 Vancomycin Trough 16.4 H Microbiology 02/15/18 15:30 Tissue - Back Gram Stain - Final 02/15/18 15:30 Tissue - Back Wound Culture - Preliminary No growth in 48 hours 02/15/18 15:30 Fluid - Other Gram Stain - Final 02/15/18 15:30 Fluid - Other Body Fluid Culture - Preliminary No growth in 24 hours 02/16/18 19:03 Blood - Peripheral Aerobic Blood Culture - Preliminary No growth in 1 day 02/16/18 19:03 Blood - Peripheral Anaerobic Blood Culture - Preliminary No growth in 1 day 02/14/18 19:55 Blood - Line Aerobic Blood Culture - Preliminary No growth in 3 days 02/14/18 19:55 Blood - Line Anaerobic Blood Culture - Preliminary Staphylococcus epidermidis 02/14/18 19:50 Blood - Line Aerobic Blood Culture - Preliminary No growth in 3 days 02/14/18 19:50 Blood - Line Anaerobic Blood Culture - Preliminary gram positive cocci Assessment and Plan - Plan 52-year-old male s/p laminectomy on 01/17/18. Re-admitted 0n 01/26 with a postoperative infection. Antibiotics ended on 02/06 and lower back pain has been gradually worsening since. Intractable lumbar pain MRI shows evidence of worsening discitis, possible osteomyelitis -Continuing triple antibiotic coverage with vancomycin, ceftriaxone, Flagyl -Continue Toradol for breakthrough pain -Following blood culture results, 02/14 culture shows staph epidermidis. Repeat blood culture 02/16-no growth up-to-date -Appreciate infectious disease consult -Appreciate neurosurgery consult-no intervention at this time -Continue physical therapy Discitis/osteomyelitis -Continuing IV antibiotics -Echocardiogram -EF 55-60%, no evidence of endocarditis, diastolic dysfunction -Appreciate ID input Continue with IV antibiotics h/o PTSD/anxiety -Continue Cymbalta and bupropion Pain management -Patient is tolerating Dilaudid 2 mg IV every 3 hours, pain controlled DVT prophylaxis SCDs Continue to monitor renal function Stable, waiting for [facility] bed Code Status: Full code Discussed Condition With: RN, pt, CM Discharge Planning: Discharge will depend on culture results and ID recommendation
[2018-02-18] MEDS: Baclofen 10 MG Tablet PO PRN ×2 (11:30→21:21)
--- NOTE | 2018-02-18 15:36 | P.DCO ---
Post Hospital Infusion Therapy - Infusion Therapy Location of Infusion Therapy: Home Health Care IV Infusion Order - Patient Information Patient Weight: 81.193 kg - Diagnosis (1) Discitis of lumbar region Code(s): M46.46 - Discitis, unspecified, lumbar region (2) Bacteremia Code(s): R78.81 - Bacteremia (3) Staphylococcus epidermidis bacteremia Code(s): R78.81 - Bacteremia - Administer Medication Daptomycin Additional Dosing Instructions: 700mg IV Q24 HOURS. Stop Treatment: 03/31/18 - Additional Information Venous Access: PICC Line Additional Instructions: [x] Peripheral flush and dressing changes per protocol [x] Implanted port and central heavy line technician: * Implanted port: 10 ml Normal Saline followed by 5 ml Heparin 100 units/ml Heparin flush after each use and monthly to maintain. [] May leave port accessed during therapy. [] May leave peripheral site accessed for duration of therapy. [x] If patient has SOB or respiratory distress, check oxygen saturation. If less than 90% or clinical signs of respiratory distress, administer oxygen at 2 L/min. via nasal cannula and notify physician. [x] Anaphylaxis/Reaction orders: * Stop infusion. * Keep IV line open with saline flush. * Notify physician. * Monitor vital signs every 15 minutes until symptoms resolve. * Check Oxygen saturation; Oxygen at 2 L/min. via nasal cannula if less than 90% or clinical signs of respiratory distress. * Administer diphenhydramine (Benadryl) 25 mg IV STAT, (unless patient has received as pre-med). May repeat once, if necessary. * Solu-Cortef 250 mg IVP over 30-60 seconds, use 100 mg vials for each dissolution. * Epinephrine (1mg/1 ml) 0.3 mg subcutaneously or IVP now with any signs of respiratory distress. * Check with physician for new additional pre-med orders if patient is re- challenged or re-treated. [x] May remove PICC line when treatment complete, after confirming with Physician. [x] If the patient is admitted to the hospital, the ED, or transferred via [facility] , complete transfer form including medication reconciliation order sheet. Weekly Labs: BMP, CBC w/diff, SED Rate, Serum CK Levels Additional Information: Follow up with ID Dr Huynh in 1 week. OFFICE NUMBER. ([phone] . Fax labs to Dr More Huynh and Dr Juarez - Case Management Consult Case Management Consult-IVF: Yes - Patient Information Allergies No Known Allergies Allergy (Verified 02/14/18 15:51)
[2018-02-18] MEDS: DAPTOmycin Inj 700 MG in Sodium Chlor 0.9% Inj 100 ML IV.SIG SCH (15:41)
--- NOTE | 2018-02-18 15:46 | P.PNID ---
Subjective Remarks: Patient reports that he feels better than he did in previous days. He was able to ambulate. Notes that the back pain is minimal. No longer having night sweats. Blood culture has staph epi. Repeat blood culture is negative at 2 days. Culture of biopsy of L4-L5 disc space positive for staph epidermidis. Afebrile. Denies chills. 2D echogram without evidence of endocarditis. Patient is a 52-year-old male, underwent surgery on January 17 and had laminectomy at L4-L5, presented to the hospital complaining of severe back pain. He was operated on and was seen same day procedure and discharge. He was readmitted to the hospital complaining of severe back pain and difficulty walking. He was in the hospital from January 26 - January 31. Imaging studies at that time showed some suggestion of postoperative infection around the laminectomy area. He had 2 blood cultures that had staph epidermidis at that time. Patient was discharged after his pain got better and completed IV vancomycin on February 06. According to the he was feeling better while on IV. However after he completed the course of treatment the pain started increasing again and he started having same problem as when he was admitted the first time. He had some low-grade fevers up to 99. He has not had any other problem as far as respiratory, GI or any urinary complaints. He has had problem on his left lower extremity and it was apparently present prior to the surgery, but has gotten a little bit worse after the surgery. That has really not changed. Since admission, highest temperature has been 99.3. WBC is normal. Sed rate is 58, C-reactive protein is 3.5. Imaging studies is now showing findings suggestive of discitis at L4-L5. Infectious disease consultation has been requested to assist with evaluation and treatment. Antibiotics: Vanco Rocephin Flagyl Lines: PIV Past Medical History: Anxiety Arthritis Back pain Bone spur Depression Herniated disc History of diverticulitis of colon Joint pain Neck pain PTSD (post-traumatic stress disorder) Spinal stenosis History of laminectomy History of biopsy History of colon resection History of hand surgery History of vasectomy Hx of LASIK Hx of fusion of cervical spine Allergies/Adverse Reactions: Allergies No Known Allergies Allergy (Verified 02/14/18 15:51) Objective Vital Signs 02/17/18 16:00 02/17/18 20:00 02/17/18 22:20 Temperature 98.1 F Pulse Rate 95 H 80 Respiratory Rate 16 18 18 Blood Pressure 151/90 H 164/86 H Pulse Oximetry 96 97 02/18/18 00:00 02/18/18 03:00 02/18/18 03:51 Temperature 98.0 F 98.0 F Pulse Rate 82 78 Respiratory Rate 16 16 18 Blood Pressure 115/65 119/79 Pulse Oximetry 95 97 02/18/18 08:08 02/18/18 12:20 Temperature 98.4 F 98.2 F Pulse Rate 77 81 Respiratory Rate 20 20 Blood Pressure 136/92 H 138/86 Pulse Oximetry 93 L 95 Intake & Output 02/17/18 02/18/18 02/18/18 18:59 06:59 18:59 Intake Total 462.5 / 462.5 725.0 / 725.0 362.5 / 362.5 Balance 462.5 / 462.5 725.0 / 725.0 362.5 / 362.5 Weight 81.193 kg Intake: IV 462.5 / 462.5 725.0 / 725.0 362.5 / 362.5 Vancomycin Inj 1,250 MG In NS 262.5 / 262.5 525.0 / 525.0 262.5 / 262.5 Inj 250 ML @ 250 mls/hr IV.SIG Q8H [facility] Rx#:[id number] Rocephin Inj 1,000 MG In NS Inj 100 / 100 100 / 100 100 ML @ 200 mls/hr IV.SIG Q24H [facility] Rx#:[id number] Flagyl 500 MG Inj 100 ML @ 100 100 / 100 200 / 200 mls/hr IV.SIG Q8H [facility] Rx#: [id number] Other: # Voids 1 Date of Last Bowel Movement 02/16/18 02/16/18 19:03 Blood - Peripheral Aerobic Blood Culture - Preliminary No growth in 2 days 02/16/18 19:03 Blood - Peripheral Anaerobic Blood Culture - Preliminary No growth in 2 days 02/14/18 19:55 Blood - Line Aerobic Blood Culture - Preliminary No growth in 4 days 02/14/18 19:55 Blood - Line Anaerobic Blood Culture - Preliminary Staphylococcus epidermidis 02/14/18 19:50 Blood - Line Aerobic Blood Culture - Preliminary No growth in 4 days 02/14/18 19:50 Blood - Line Anaerobic Blood Culture - Preliminary gram positive cocci 02/15/18 15:30 Tissue - Back Gram Stain - Final 02/15/18 15:30 Tissue - Back Wound Culture - Final No growth in 72 hours (aerobically and anaerobically ) 02/15/18 15:30 Fluid - Other Gram Stain - Final 02/15/18 15:30 Fluid - Other Body Fluid Culture - Final Staphylococcus epidermidis Lab - Chemistry Results 02/17/18 02/18/18 12:47 02:25 BUN 13 13 Creatinine 0.66 0.76 Estimated GFR Greater than 89 Greater than 89 Imaging: ITS Impressions Lumbar Spine MRI 02/14/18 15:53 CONCLUSION: 1. At L4-5 there is some new marrow edema and marrow enhancement on both sides of the disc interspace with a increase in enhancing soft tissue along the anterior thecal sac and left lateral recess resulting in slightly more thecal sac compromise than on prior exam. Rim enhancement around the fluid collection in the laminectomy defect is slightly greater although the maximal size of the fluid collection is similar to the prior exam. Findings are concerning for developing osteomyelitis and discitis at L4-5 given the new marrow enhancement and slight increase in T2 signal at the disc interspace. Needle Aspiration CT 02/15/18 12:53 CONCLUSION: 1. Uncomplicated CT guided aspiration of laminectomy bed soft tissues and 20- gauge core biopsy of L4-5 disc space. Physical Exam: GENERAL: Alert and oriented, no acute distress. HEENT: Pupils reactive to light. Extraocular movements intact. No icterus. Oropharynx has moist mucosa. No thrush. NECK: Supple without adenopathy. No swelling. LUNGS: Clear breath sounds bilateral. HEART: Regular S1 and S2. No audible murmurs or rubs or gallops. ABDOMEN: Bowel sounds present, soft, no tenderness. BACK: Surgical incision is well-healed. No tenderness on palpation. EXTREMITIES: No clubbing cyanosis or edema. SKIN: Rash at the nasolabial area. NEUROLOGIC: No gross focal finding. PSYCH: Calm and cooperative. Assessment and Plan (1) Discitis of lumbar region Status: Acute Code(s): M46.46 - Discitis, unspecified, lumbar region (2) Bacteremia Status: Acute Code(s): R78.81 - Bacteremia (3) Staphylococcus epidermidis bacteremia Status: Acute Code(s): R78.81 - Bacteremia - Plan Impression Discitis at L4 - L5 staph epidermidis Fluid collection around laminectomy. Recurrent Staph epi bacteremia. S/P laminectomy 01/17 Recommendation Stop Vanco, Rocephin and Flagyl Begin IV Daptomycin because the staph epidermidis JONO to vancomycin is 2.0 Treat with IV daptomycin until March 31, 2017. 6 weeks course of IV antibiotics for discitis. PICC line for outpatient antibiotics. Okay to place PIC line today while awaiting blood culture. Arrange for follow-up with ID outpatient Dr. Huynh in 1 week. Labs ordered. IV antibiotics ordered. Okay for patient to be discharged tomorrow once outpatient antibiotics are arranged. Notified case management to arrange for antibiotics. Discussed with patient and his . Questions answered.
[2018-02-18] MEDS ORDERED: Heparin Central Flush 100 UNIT/ML 5 ML Vial IV.FLUSH PRN (17:10)
--- NOTE | 2018-02-18 17:11 | P.DCO ---
- Home Health Nursing Order: Medication education-adverse effect, Nursing assessment with vital signs , IV medication administration - Case Management Consult Case Management Consult-Home Health: Yes - Certification I have seen patient Jonatan Torres on 02/18/18. My clinical findings support the need for the requested home health care services because: pt. needs IV antibiotics for discitis. Infection with risk of complications, Injectable medication education/ administration I certify that my clinical findings support that this patient is homebound because: pt. requires IV antibiotics for until March, doesn't need to remain in hospital and can complete antibiotics at home. Need for psychosocial assistance
[2018-02-18] MEDS: traZODone 100 MG Tablet PO SCH (21:21)
[2018-02-19] MEDS: Ketorolac Inj 30 MG/ML (IVP) Vial IV.PUSH PRN (04:31)
[2018-02-19 05:04] LABS: Blood Urea Nitrogen 12 mg/dL (7-18); Glomerular Filtration Rate Greater Than 89 mL/min (>89)
[2018-02-19 08:07] VITALS: BP 144/90; PULSE 92; TEMP 98.8; O2SAT 96
[2018-02-19] MEDS: Senna/Docusate Sodium 8.6/50 MG Tablet PO SCH (08:50)
[2018-02-19] MEDS: Gabapentin 300 MG Capsule PO SCH ×2 (08:50→13:16)
[2018-02-19] MEDS: Duloxetine 60 MG DR Capsule PO SCH (08:50)
[2018-02-19] MEDS: buPROPion 150 MG 12 HR Tablet PO SCH (08:50)
[2018-02-19] MEDS ORDERED: Heparin Central Flush 100 UNIT/ML 5 ML Vial IV.FLUSH SCH (09:00)
[2018-02-19 13:07] VITALS: RESP 18
[2018-02-19] MEDS: DAPTOmycin Inj 700 MG in Sodium Chlor 0.9% Inj 100 ML IV.SIG SCH (13:26)
--- NOTE | 2018-02-19 15:01 | P.DS ---
DS: Providers Date of admission: 02/14/18 20:47 Primary care physician: Brina Clarke Patient is a 52-year-old male who presented to hospital for intractable back pain. Patient was admitted with the following treatments and services were provided. Consultation was appreciated during hospitalization by infectious disease, neurosurgery. Repeat lumbar spine MRI was obtained. During hospitalization patient was started on IV daptomycin. Patient with clinical improvement on antibiotic regimen for developing osteomyelitis and discitis at the L4-L5 level. Blood cultures negative.. Patient underwent uncomplicated CT- guided aspiration of laminectomy bed soft tissue on 02/15. Patient was evaluated by physical therapy with no additional needs and outpatient side is patient already has a rolling walker. Patient to be discharged with following provision for follow-up care. Patient to complete treatment with IV daptomycin until March 31 to complete 6 weeks of antibiotics for discitis. Patient received PICC line. Patient is to follow-up [address] Huynh. Patient to receive IV infusion as an outpatient. Consults: 02/14/18 20:33 Consult to Neurosurgery Routine Consulting Provider: Artur Mixon [employer] Insurance Specialist:: Artur Mixon Reason for Consultation: post operative complication, intractable back pain Notified:: Physician Spoke with:: Dr Mixon Date Notified:: 02/14/18 Time Notified:: 21:17 Comments:: Spoke with Dr Mixon who is with patient at this time. Ordering Provider: ARIN 02/14/18 20:49 HUB Only Consult Order Routine Consulting Provider: Sanjuanita Gann 02/14/18 23:43 Consult to Infectious Diseases Routine Consulting Provider: Yamilet Phelan Reason for Consultation: post op staph infection - recurrent and worsening on MRI studies suggestive of osteo Notified:: Service Spoke with:: Raj Date Notified:: 02/15/18 Time Notified:: 00:37 Ordering Provider: BESSIE DS: Diagnosis Discharge Diagnosis (1) Discitis of lumbar region: Status: Acute (2) Bacteremia: Status: Acute (3) Staphylococcus epidermidis bacteremia: Status: Acute DS: Summary Patient is a 52-year-old male who presented to hospital for intractable back pain. Patient was admitted with the following treatments and services were provided. Consultation was appreciated during hospitalization by infectious disease, neurosurgery. Repeat lumbar spine MRI was obtained. During hospitalization patient was started on IV daptomycin. Patient with clinical improvement on antibiotic regimen for developing osteomyelitis and discitis at the L4-L5 level. Blood cultures negative.. Patient underwent uncomplicated CT- guided aspiration of laminectomy bed soft tissue on 02/15. Patient was evaluated by physical therapy with no additional needs and outpatient side is patient already has a rolling walker. Patient to be discharged with following provision for follow-up care. Patient to complete treatment with IV daptomycin until March 31 to complete 6 weeks of antibiotics for discitis. Patient received PICC line. Patient is to follow-up [address] Huynh. Patient to receive IV infusion as an outpatient. Time Spent with Patient Total time spent providing and/or coordinating discharge services: Quality: VTE Deep Vein Thrombosis/Pulmonary Embolism Present on Admission: No Results Labs on day of discharge: Labs from last 24 hours 02/19/18 04:00 BUN 12 Creatinine 0.71 Estimated GFR Greater than 89 Preliminary micro results at discharge 02/16/18 19:03 Aerobic Blood Culture - Preliminary Blood - Peripheral No growth in 3 days Anaerobic Blood Culture - Preliminary No growth in 3 days 02/14/18 19:55 Anaerobic Blood Culture - Preliminary Blood - Line Staphylococcus epidermidis Impressions ITS Impressions Lumbar Spine MRI 02/14/18 15:53 CONCLUSION: 1. At L4-5 there is some new marrow edema and marrow enhancement on both sides of the disc interspace with a increase in enhancing soft tissue along the anterior thecal sac and left lateral recess resulting in slightly more thecal sac compromise than on prior exam. Rim enhancement around the fluid collection in the laminectomy defect is slightly greater although the maximal size of the fluid collection is similar to the prior exam. Findings are concerning for developing osteomyelitis and discitis at L4-5 given the new marrow enhancement and slight increase in T2 signal at the disc interspace. Needle Aspiration CT 02/15/18 12:53 CONCLUSION: 1. Uncomplicated CT guided aspiration of laminectomy bed soft tissues and 20- gauge core biopsy of L4-5 disc space. Discharge Plan Discharge Disposition Patient Disposition: Discharge Home Discharge Condition Condition: Stable Discharge Order Discharge Orders: Discharge Order (Routine); Ordered 02/19/18 Ordered By: Tremaine Miles Discharge Details Anticipated Discharge Date: 02/19/18 Discharge Comment: dc pending outpt iv abx arrangement. dont discharge until finish Physicians Team ED Provider: Selvin Lubin ED Midlevel Provider: Tamie Guadalupe Primary Care Provider: Brina Clarke Attending Provider: Tremaine Miles Other Providers: Sanjuanita Gann ; Artur Mixon ; Yamilet Phelan ; Breezy Juarez Rxs /Orders / Referrals /Forms Prescriptions: New daptomycin 350 mg recon soln 700 mg IV.SIG Q24H 31 Days Qty: 10 RF: 0 Continue meloxicam 15 mg Tablet 15 mg PO DAILY RF: 0 trazodone 100 mg Tablet 100 mg PO DAILY RF: 0 baclofen 10 mg Tablet 10 mg PO TID PRN (Reason: Muscle Spasm) RF: 0 gabapentin 300 mg Capsule 300 mg PO TID RF: 0 duloxetine [Cymbalta] 60 mg Capsule,Delayed Release(Dr/Ec) 60 mg PO BID RF: 0 bupropion HCl 300 mg Tablet Extended Release 24 Hr 300 mg PO QAM RF: 0 sennosides-docusate sodium [Senna Plus] 8.6-50 mg Tablet 1 tab PO BID Qty: 60 RF: 0 oxycodone-acetaminophen 10-325 mg Tablet 1 tab PO Q6H PRN (Reason: Pain) RF: 0 Referrals: Brina Clarke MD [Primary Care Provider] - See Instructions (follow up 1 week *please call to schedule follow up appointment ) More Huynh MD [Physician] - 03/12/18 2:15 pm (follow of discitis lumbar in 1 week) Arya Mercado MD [NEUROSURGERY] - See Instructions (Please call to schedule f/u in 6weeks) Discharge Instructions Patient Printed Instructions: Daptomycin (By injection), Laminectomy (GEN), Acute Low Back Pain (GEN), How to Care for Your Peripherally Inserted Central Catheter (DC) Status ED Status: Left Department Discharge Information Discharge Date/Time: 02/19/18 14:26
[2018-02-20] MEDS ORDERED: Pharmacy Ordered Lab Info OTHER ONE (01:45)
== END 2018-02-19 14:26 | disposition home health service (06) | DRG 863 ==
LOC: NEPC 15:22 → NEDA 15:22 → NEPGCP 22:14 → N07 02-18 13:37
PROVIDERS: ADMIT Internal Medicine; ATTEND Internal Medicine
DX: F43.10 Post-traumatic stress disorder, unspecified; F32.9 Major depressive disorder, single episode, unspecified; R78.81 Bacteremia; B95.7 Other staphylococcus as the cause of diseases classified elsewhere; M47.816 Spondylosis without myelopathy or radiculopathy, lumbar region; M86.9 Osteomyelitis, unspecified; M48.062 Spinal stenosis, lumbar region with neurogenic claudication; R50.9 Fever, unspecified; Z98.1 Arthrodesis status; Z87.891 Personal history of nicotine dependence; T81.40XA Infection following a procedure, unspecified, initial encounter; M46.46 Discitis, unspecified, lumbar region; G89.29 Other chronic pain
CPT/HCPCS: 10009; 36569; 72158; 76360; 76937; 77012; 80048; 80053; 80202; 81001; 82565; 84520; 85025; 85610; 85651; 85652; 85730; 86140; 87040; 87070; 87077; 87149; 87186; 87205; 90761; 90774; 90776; 90784; 93306; 96361; 96374; 96376; 97110; 97162; 97530; 99145; 99152; 99153; 99285; A9585; C8952; C9124; J0696; J0878; J1170; J1642; J1885; J2060; J2250; J3010; J3370; J7030; J7040; J7050